=== PATIENT | female | born 1955 | race Caucasian/White ===

== ENCOUNTER → 2017-09-25 09:19 | Outpatient (CLI) | payer BC, SELFPAY ==
--- NOTE | 2017-09-25 09:26 | MM_ITS ---
MM Dig screening mamm BI w/CAD CAD Screening COMPARISON: Digital mammograms 08/08/2016 and 03/22/2014 INDICATION: There is no personal or family history of breast cancer TECHNIQUE: Standard CC and MLO images were obtained. R2 CAD reviewed. FINDINGS: Scattered fibroglandular densities are seen throughout both breasts. There is faint arterial calcination in each breast. There are few benign-appearing calcifications left breast as noted previously. Is no suspicious lesion and no suspicious microcalcifications. Again noted is a mole marker right breast. IMPRESSION: Stable exam no suspicious lesion seen recommend yearly follow-up BI-RADS Category: 2 Benign Finding(s) RECOMMENDED FOLLOW-UP: 1YR - 1 YEAR FOLLOW-UP (A letter has been sent to the patient regarding results of the study.)
== END ==
PROVIDERS: Family Provider Nurse Practitioner Family; PCP Internal Medicine Adolescent Medicine; Visit Provider Advanced Practice Midwife
DX: R10.2 Pelvic and perineal pain (principal)
CPT/HCPCS: 77067

== ENCOUNTER → 2017-10-14 11:40 | Outpatient (POV) | payer BC, SELFPAY ==
[2017-10-14 11:53] VITALS: BP 138/80; PULSE 78; RESP 18; O2SAT 98
--- NOTE | 2017-10-14 12:16 | HMH.PMCON ---
Assessment and Plan (1) Sacroiliitis Current visit: Yes Status: Chronic Category: Medical Code(s): M46.1 - Sacroiliitis, not elsewhere classified (2) Bursitis Current visit: Yes Status: Chronic Category: Medical Code(s): M71.9 - Bursopathy, unspecified - Assessment and plan all Dx Assessment and Plan for all problems:: We will plan to SI joint injection along with a left trochanteric bursa injection. I believe that this will be beneficial for the patient. In regards to her spinal stenosis if she is still having symptomology after this injection we will order a lumbar MRI to assess. Patient has tried and failed anti-inflammatories, stretching therapy, medications. Patient is not on any anticoagulation therapy I will follow-up with her after her injection. This note was dictated using voice recognition software and may contain errors or omissions HPI - Data of Consult Consult date: 10/14/17 Requesting Physician: Hanane Cohen APRN Primary Care Provider: Stanislav Mitchell MD Family Provider: Malena Ramey APRN - Consult Narrative Reason for consult: Left hip pain History of present illness: Ms. Erwin is a 62 year old female sent for consultation in regards to her left hip pain. Patient states that sleeping and walking increases her pain while meloxicam has decreased her pain some. She rates her pain a 2 out of 10 at this time. Patient states that walking makes it worse. Patient has been seen by Dr. Asif in the past and was told that she has spinal stenosis. Patient has had injections in the past with extremely good relief. Patient has tried anti-inflammatories. Patient routinely does stretching exercises at home. These do help some however she has not gotten full relief with it. CC: Hanane Cohen APRN [facility] History I have reviewed the patient's past medical history: Yes Medical History: Reports:: Depression Denies:: Diabetes Mellitus Type 1, Diabetes Mellitus Type 2 Other Medical History: Reports: Arthritis, Thyroid Disease Laterality Cases: Bilateral: Other Other Surgeries: Yes: Cholecystectomy, Colonoscopy - *Social History Smoking Status: Unknown if ever smoked Alcohol Intake: never Occupational Status: other Housing: house - Psychiatric History Expresses thoughts of harming self/others: None Suicide Plan Description: No Plan Pschychiatric History:: Reports:: Depression *Family Hx:: Hypertension, Thyroid Disorder, Diabetes, Hyperlipidemia, Heart Attack, Kidney Disease, Stroke Review of Systems - Review of Systems ROS General: no recent weight change, no fever, no sleep disturbances Respiratory: no cough, no shortness of air, no recurring pulmonary infections Cardiovascular/Peripheral Vascular: No chest pain, No palpitations, no edema, no shortness of breath. Gastrointestinal: no incontinence, normal bowel movements reported Genitourinary: no incontinence Musculoskeletal: Hip pain, left SI joint pain Psychiatric: normal mood/ affect, [denies depression], [denies anxiety] Neurological: [denies weakness in extremities], [denies balance issues] Meds Home Medications Medication Instructions Recorded Confirmed Type levothyroxine 88 mcg tablet 88 mcg PO DAILY tab 09/23/17 History melatonin 5 mg capsule 5 mg PO .prn cap 09/23/17 History meloxicam 15 mg tablet 15 mg PO DAILY tab 09/23/17 History Allergies Allergy/AdvReac Type Severity Reaction Status Date / Time No Known Allergies Allergy Unverified 05/20/17 14:27 Objective Vital signs: Pulse Resp BP Pulse Ox 78 18 138/80 98 10/14/17 11:53 10/14/17 11:53 10/14/17 11:53 10/14/17 11:53 Narrative: Physical Exam General: Alert and oriented x3, no acute distress, pleasant and cooperative, [on room air] Lungs: Resps E/U, Symmetrical chest expansion, Eyes: PERRL Musculoskeletal: Flexion and extension of lumbar spine somewhat guarded secondary to pain, keya
--- NOTE | 2017-10-14 12:19 | P.CONS_ITS ---
Assessment and Plan (1) Sacroiliitis Current visit: Yes Status: Chronic Category: Medical Code(s): M46.1 - Sacroiliitis, not elsewhere classified (2) Bursitis Current visit: Yes Status: Chronic Category: Medical Code(s): M71.9 - Bursopathy, unspecified - Assessment and plan all Dx Assessment and Plan for all problems:: We will plan to SI joint injection along with a left trochanteric bursa injection. I believe that this will be beneficial for the patient. In regards to her spinal stenosis if she is still having symptomology after this injection we will order a lumbar MRI to assess. Patient has tried and failed anti- inflammatories, stretching therapy, medications. Patient is not on any anticoagulation therapy I will follow-up with her after her injection. This note was dictated using voice recognition software and may contain errors or omissions HPI - Data of Consult Consult date: 10/14/17 Requesting Physician: Hanane Cohen APRN Primary Care Provider: Stanislav Mitchell MD Family Provider: Malena Ramey APRN - Consult Narrative Reason for consult: Left hip pain History of present illness: Ms. Erwin is a 62 year old female sent for consultation in regards to her left hip pain. Patient states that sleeping and walking increases her pain while meloxicam has decreased her pain some. She rates her pain a 2 out of 10 at this time. Patient states that walking makes it worse. Patient has been seen by Dr. Asif in the past and was told that she has spinal stenosis. Patient has had injections in the past with extremely good relief. Patient has tried anti-inflammatories. Patient routinely does stretching exercises at home. These do help some however she has not gotten full relief with it. CC: Hanane Cohen APRN [facility] [place] History I have reviewed the patient's past medical history: Yes Medical History: Reports:: Depression Denies:: Diabetes Mellitus Type 1, Diabetes Mellitus Type 2 Other Medical History: Reports: Arthritis, Thyroid Disease Laterality Cases: Bilateral: Other Other Surgeries: Yes: Cholecystectomy, Colonoscopy - *Social History Smoking Status: Unknown if ever smoked Alcohol Intake: never Occupational Status: other Housing: house - Psychiatric History Expresses thoughts of harming self/others: None Suicide Plan Description: No Plan Pschychiatric History:: Reports:: Depression *Family Hx:: Hypertension, Thyroid Disorder, Diabetes, Hyperlipidemia, Heart Attack, Kidney Disease, Stroke Review of Systems - Review of Systems ROS General: no recent weight change, no fever, no sleep disturbances Respiratory: no cough, no shortness of air, no recurring pulmonary infections Cardiovascular/Peripheral Vascular: No chest pain, No palpitations, no edema, no shortness of breath. Gastrointestinal: no incontinence, normal bowel movements reported Genitourinary: no incontinence Musculoskeletal: Hip pain, left SI joint pain Psychiatric: normal mood/ affect, [denies depression], [denies anxiety] Neurological: [denies weakness in extremities], [denies balance issues] Meds Home Medications Medication Instructions Recorded Confirmed Type levothyroxine 88 mcg tablet 88 mcg PO DAILY tab 09/23/17 History melatonin 5 mg capsule 5 mg PO .prn cap 09/23/17 History meloxicam 15 mg tablet 15 mg PO DAILY tab 09/23/17 History Allergies Allergy/AdvReac Type Severity Reaction Status Date / Time No Known A
== END ==
PROVIDERS: Family Provider Nurse Practitioner Family; PCP Internal Medicine Adolescent Medicine; Visit Provider Clinical Nurse Specialist Family Health
DX: M46.1 Sacroiliitis, not elsewhere classified (principal); M71.9 Bursopathy, unspecified
CPT/HCPCS: 99202

== ENCOUNTER → 2017-12-08 11:39 | Outpatient (POV) | payer BC, SELFPAY ==
--- NOTE | 2017-12-08 11:55 | HMH.PAINSOAP ---
[facility] Pain Management SOAP Note Subjective:: Patient is a pleasant 62-year-old white female who we are treating for left-sided hip pain. Patient is following up after left SI and left trochanteric bursa injection. Patient did not get any relief from this injection. Patient and I had a long discussion in regards to her pain. Patient is having low back pain midline along with her left hip pain. Patient has not seen an orthopedic surgeon in regards to her left hip pain I believe that this would be the next step for her. Patient has a appointment with O in December for an evaluation. Patient and I discussed the next step in regards to her back pain. We will get an MRI and some updated imaging. Patient is having some difficulty with movement of her left foot. I believe an MRI would be beneficial in discerning pathology. Patient has been diagnosed with spinal stenosis in the past. ROS General: no recent weight change, no fever, no sleep disturbances Respiratory: no cough, no shortness of air, no recurring pulmonary infections Cardiovascular/Peripheral Vascular: No chest pain, No palpitations, no edema, no shortness of breath. Gastrointestinal: no incontinence, normal bowel movements reported Genitourinary: no incontinence Musculoskeletal: Back pain, left leg pain, left hip pain Psychiatric: normal mood/ affect Neurological: [denies weakness in extremities], [denies balance issues] Objective:: Physical Exam General: Alert and oriented x3, no acute distress, pleasant and cooperative, [on room air] Lungs: Resps E/U, Symmetrical chest expansion, Eyes: PERRL Musculoskeletal: Flexion and extension of lumbar spine somewhat guarded secondary to pain, deep tendon reflexes normal, strength in upper and lower extremities [5/5], [abnormal gait noted] Neurological: speech clear, manager quality systems equal, no gross sensory deficits Assessment:: Sacroiliitis, trochanteric bursitis, left hip pain, low back pain Plan:: We will schedule an MRI to determine pathology in regards to her low back pain. Patient is to see an orthopedic surgeon in regards to her left hip pain. We will follow-up from there. Patient is on anti-inflammatories. This note was dictated using voice recognition software and may contain errors or omissions
--- NOTE | 2017-12-08 11:58 | P.CONS_ITS ---
[facility] Pain Management SOAP Note Subjective:: Patient is a pleasant 62-year-old white female who we are treating for left- sided hip pain. Patient is following up after left SI and left trochanteric bursa injection. Patient did not get any relief from this injection. Patient and I had a long discussion in regards to her pain. Patient is having low back pain midline along with her left hip pain. Patient has not seen an orthopedic surgeon in regards to her left hip pain I believe that this would be the next step for her. Patient has a appointment with O in December for an evaluation. Patient and I discussed the next step in regards to her back pain. We will get an MRI and some updated imaging. Patient is having some difficulty with movement of her left foot. I believe an MRI would be beneficial in discerning pathology. Patient has been diagnosed with spinal stenosis in the past. ROS General: no recent weight change, no fever, no sleep disturbances Respiratory: no cough, no shortness of air, no recurring pulmonary infections Cardiovascular/Peripheral Vascular: No chest pain, No palpitations, no edema, no shortness of breath. Gastrointestinal: no incontinence, normal bowel movements reported Genitourinary: no incontinence Musculoskeletal: Back pain, left leg pain, left hip pain Psychiatric: normal mood/ affect Neurological: [denies weakness in extremities], [denies balance issues] Objective:: Physical Exam General: Alert and oriented x3, no acute distress, pleasant and cooperative, [ on room air] Lungs: Resps E/U, Symmetrical chest expansion, Eyes: PERRL Musculoskeletal: Flexion and extension of lumbar spine somewhat guarded secondary to pain, deep tendon reflexes normal, strength in upper and lower extremities [5/5], [abnormal gait noted] Neurological: speech clear, financial services intern equal, no gross sensory deficits Assessment:: Sacroiliitis, trochanteric bursitis, left hip pain, low back pain Plan:: We will schedule an MRI to determine pathology in regards to her low back pain. Patient is to see an orthopedic surgeon in regards to her left hip pain. We will follow-up from there. Patient is on anti-inflammatories. This note was dictated using voice recognition software and may contain errors or omissions
== END ==
PROVIDERS: Family Provider Nurse Practitioner Family; PCP Internal Medicine Adolescent Medicine; Visit Provider Clinical Nurse Specialist Family Health
DX: M46.1 Sacroiliitis, not elsewhere classified (principal); M25.552 Pain in left hip
CPT/HCPCS: 99212

== ENCOUNTER 2019-07-06 10:30 | Outpatient (RCR) | payer BC, SELFPAY | END 2019-07-06 10:35 | disposition home or self-care (01) | LOC: PT 10:30 | PROVIDERS: PCP Internal Medicine Adolescent Medicine; Visit Provider Internal Medicine Adolescent Medicine | DX: M54.5 Low back pain (principal); M25.552 Pain in left hip; M53.3 Sacrococcygeal disorders, not elsewhere classified | CPT/HCPCS: 20560; 97010; 97012; 97014; 97033; 97035; 97110; 97140; 97163; G0283 ==

== ENCOUNTER → 2019-07-19 14:53 | Outpatient (CLI) | payer BC, SELFPAY ==
--- NOTE | 2019-07-19 15:07 | MR_ITS ---
PROCEDURE: MR LUMBAR SPINE WO CON CLINICAL INDICATION: LUMBAR DDD COMPARISON: No exams were available for comparison TECHNIQUE: Standard multiplanar multiecho sequences are performed without contrast. 3-D MIP and myelographic images are also rendered and reviewed FINDINGS: Routine multiplanar multisequence exam was performed. Vertebrae are of normal height and alignment. No malignant bone marrow signal is apparent. Discogenic endplate disease is noted throughout the lumbar spine. Varying degrees of desiccation and loss of lumbar disc space heights are noted. Additionally there is desiccation and loss of disc space height at T10-11. At T10-11 there is broad-based disc bulge with convex extradural mass effect on the thecal sac with central spinal canal stenosis and bilateral foraminal stenosis. Spinal cord contour deformity appears to be present in association. At L1-2 there is disc osteophyte complex and mild bilateral ligamentum flavum and facet hypertrophy with mild bilateral foraminal encroachment without high-grade stenosis. There is no central canal stenosis. At L2-3 there is disc bulge eccentric toward the left lateral and foraminal margin of the disc space and there is bilateral ligamentum flavum and facet hypertrophy with asymmetrical left foraminal stenosis. At L3-4 there is disc bulge with ligamentum flavum and facet hypertrophy with left foraminal stenosis without central canal stenosis. At L4-5 there is marginal osteophyte with broad-based disc bulge with bilateral ligamentum flavum and facet hypertrophy. There is bilateral foraminal stenosis greatest on the right. The facet hypertrophy appears to cause extrinsic mass effect on the right lateral aspect of the thecal sac. No high-grade central canal stenosis is apparent. At L5-S1 there is moderate to severe bilateral hypertrophic facet disease with mild bilateral foraminal stenoses. No central canal stenosis is apparent. No herniated disc is demonstrated. A 2.3 centimeter cystic lesion appears present posterior medial liver. A nonspecific 1.5 x 2.2 centimeter retrocaval lymph node appears to be present. Consider correlation with postcontrast CT of the abdomen to further assess this patient. IMPRESSION: Multilevel degenerative disc and facet disease with multilevel central canal and foraminal stenoses. Possible retrocaval lymphadenopathy. Dictated by: Paco Bosch 07/19/2019 16:48 Electronically signed by Paco Bosch in [place] 07/19/2019 16:48
== END ==
PROVIDERS: PCP Internal Medicine Adolescent Medicine; Visit Provider Internal Medicine Adolescent Medicine
DX: M51.36 Other intervertebral disc degeneration, lumbar region (principal)
CPT/HCPCS: 72148; 76376

== ENCOUNTER → 2019-10-29 10:02 | Outpatient (CLI) | payer BC, SELFPAY ==
--- NOTE | 2019-10-29 10:06 | XR_ITS ---
PROCEDURE: XR HIP LT 2-3V W/PELVIS CLINICAL INDICATION: Lt hip pain COMPARISON: [id number] HIP LT 2-3V W/PELVIS IF PERFOR from 09/19/2015 FINDINGS: There has been interval development of severe osteoarthritic changes of the left hip with loss of joint space, osteosclerosis of the acetabulum and femoral head, and subchondral cystic changes. There is loss of the hip joint space superiorly. There is suggestion of some flattening of the femoral head. There are some osteophytes noted of the femoral head. The right hip has an unremarkable appearance on the AP view of the pelvis. IMPRESSION: Severe osteoarthritic changes of the left hip with osteosclerosis and subchondral cystic changes.. This may represent rapidly destructive osteoarthritis of the hip. Differential diagnosis would include septic joint/osteomyelitis, neuropathic arthropathy, and avascular necrosis. Dictated by: Justin Martinez MD 10/29/2019 10:41 Electronically signed by Justin Martinez MD in [facility] 10/29/2019 10:41
== END ==
PROVIDERS: PCP Internal Medicine Adolescent Medicine; Visit Provider Orthopaedic Surgery
DX: M25.552 Pain in left hip (principal)
CPT/HCPCS: 73502

== ENCOUNTER → 2019-11-04 07:24 | Outpatient (CLI) | payer BC, SELFPAY ==
[2019-11-04 07:46] LABS: Microscopic, Urine URINE MICROSCOPIC (MICROSCOPIC)
--- NOTE | 2019-11-04 08:07 | ECG_ITS ---
APPROVED REPORT Exam: Resting ECG HR:67 bpm ECG Measurements Heart Rate 67 AXES CA 136 P 33 QRSd 80 QRS 61 QT 406 T 68 QTc 429 <Conclusion> Normal sinus rhythm Normal ECG Electronically signed by : Stanislav Mitchell, 11/06/2019 14:17:37
--- NOTE | 2019-11-04 08:12 | XR_ITS ---
PROCEDURE: XR CHEST 2V CLINICAL HISTORY: SOB Shortness of breath COMPARISON: No exams were available for comparison FINDINGS: The cardiomediastinal silhouette and pulmonary vascularity are within normal limits. The lungs are clear without infiltrates, suspicious nodules, or pleural effusions. Mild degenerative changes thoracic spine IMPRESSION: No acute findings. Dictated by: Justin Martinez MD 11/04/2019 08:59 Electronically signed by Justin Martinez MD in [place] 11/04/2019 08:59
[2019-11-04 08:26] LABS: Appearance,Urine CLEAR (Clear); Bilirubin,Urine Negative (Negative); Blood, Urine 1+ (Negative); Color,Urine YELLOW (Yellow); Glucose,Urine (UA) Negative (Negative); Ketones,Urine Negative (Negative); Leukocyte Esterase,Urine Negative (Negative); Nitrate,Urine Negative (Negative); PH,Urine 5.5 (5.0-8.5); Protein,Urine Negative (Negative); Specific Gravity, Urine 1.025 (1.005-1.030); Urobilinogen,Urine 0.2 EU/dl (0.2)
[2019-11-04 08:45] LABS: Basophils % 1.2 % (0.1-2.0); Eosinophils # 0.1 K/mm3 (0.0-0.4); Eosinophils % 3.5 % (0.1-12.0); Hemoglobin 13.7 g/dL (12.2-16.2); Lymphocytes # 1.2 K/mm3 (0.7-4.5); Lymphocytes % 37.6 % (10-50); Mean Corpuscular HGB Conc 33.4 g/dL (31.8-35.4); Mean Corpuscular Hemoglobin 30.6 pg (27.0-31.2); Mean Corpuscular Volume 91.7 fl (81-99); Mean Platelet Volume 7.5 fl (7.4-10.4); Monocytes # 0.2 K/mm3 (0.1-1.0); Neutrophils # 1.6 K/mm3 (1.8-7.8); Neutrophils % 50.7 % (37.0-80.0); Platelet Count 244 K/mm3 (142-424); Red Blood Count 4.47 M/mm3 (4.20-5.40); Red Cell Distribution Width 13.5 % (11.5-17.5); White Blood Count 3.2 K/mm3 (4.8-10.8)
[2019-11-04 09:18] LABS: WBC,Urine Occasional #/hpf (0-3)
[2019-11-04 09:48] LABS: INR 0.98 (0.9-1.1); Prothrombin Time 10.1 seconds (9.4-11.8)
[2019-11-04 09:49] LABS: Activated Partial Thrombo Time 25.6 seconds (23.6-34.0)
[2019-11-04 10:21] LABS: Hemoglobin A1C 5.2 % (4.0-6.0)
[2019-11-04 10:33] LABS: Chloride 104 mmol/L (98-107); Potassium 4.5 mmoL/L (3.5-5.1); Sodium 139 mmol/L (136-145)
[2019-11-04 10:36] LABS: Alanine Aminotransferase 13 U/L (12-78); Albumin Level 4.4 g/dl (3.5-5.0); Albumin/Globulin Ratio 1.4 (1.1-1.8); Alkaline Phosphatase 78 U/L (38-126); Anion Gap 10.5 mEq/L (5-15); Aspartate Amino Transferase 23 U/L (14-36); Bilirubin,Total 0.7 mg/dl (0.2-1.3); Blood Urea Nitrogen 27 mg/dl (7-17); Carbon Dioxide 29 mmol/L (22.0-30.0); Estimated Glomerular Filt Rate 56 ml/min (>60); GFR (African American) 68 ML/MIN (>60); Globulin 3.1 g/dL (1.3-3.2); Total Protein,Serum 7.5 g/dl (6.3-8.2)
[2019-11-04 10:37] LABS: Calcium 9.4 mg/dl (8.4-10.2); Glucose 87 mg/dl (74-100)
== END ==
PROVIDERS: PCP Internal Medicine Adolescent Medicine; Visit Provider Internal Medicine Adolescent Medicine
DX: Z01.818 Encounter for other preprocedural examination (principal)
CPT/HCPCS: 36415; 71046; 80053; 81001; 83036; 85025; 85610; 85730; 93005

== ENCOUNTER → 2020-04-26 08:43 | Outpatient (CLI) | payer MEDICARE, SELFPAY ==
--- NOTE | 2020-04-26 08:51 | MM_ITS ---
PROCEDURE: MM DIG SCREENING MAMM BI W/CAD Referring Doctor: Malena Ramey Patient Age:65Y CLINICAL INDICATION: SCREENING a 65-year-old female. No hormones but no new complaints. Noncontributory family history COMPARISON: MG [facility] DIGITAL MAMM-SCREEN BILATERAL from 12/25/2011 MG [facility] DIG MAMM-SCREEN NICOLE from 12/29/2012 MG DMSB DIG MAMM-SCREEN NICOLE from 03/22/2014 MG DMSB DIG MAMM-SCREEN NICOLE W/CAD from 08/08/2016 MG [facility] MM Dig screening mamm BI w/CAD from 09/25/2017 TECHNIQUE: Standard CC and MLO images were obtained. R2 CAD reviewed. Bilateral digital breast tomosynthesis included. FINDINGS: Minimal/[id number] residual fibroglandular elements bilaterally but No new dominant or suspicious mass. No suspicious calcifications. The. Left breast no new areas of concern. Minor asymmetric focus density superior left breast of is been seen on previous mammogram studies from 2012 and dissipates on the tomosynthesis views. CC view unchanged Right breast: No new areas of significant concern. Areas of minor asymmetry unchanged and stable IMPRESSION: Stable bilateral mammogram with no new areas of concern Bilateral follow-up 1 year BI-RAD Category: 2 Benign Finding(s) FOLLOW-UP: 1YR 1 Year Follow-up (A letter has been sent to the patient regarding results of the study.) Dictated by: Jonathan Drummond MD 05/04/2020 15:43 Jonathan Drummond MD in [facility] 05/04/2020 15:43
--- NOTE | 2020-04-26 08:51 | XR_ITS ---
PROCEDURE: XR DEXA AXIAL SKELETON CLINICAL HISTORY: POST MENOPAUSAL COMPARISON: No exams were available for comparison FINDINGS: The right hip BMD is 0.654 with a T-score of -1.8. The left hip BMD is with a T-score of . The lumbar spine BMD is 1.29 with a T-score of 2.3. Radius 1/3 is 0.680 grams/centimeters sq with T-score of -0.2. IMPRESSION: This patient is considered osteopenic according to the World Health Organization criteria. Bone density is between 10 and 25 percent below young normal. Fracture risk is moderate. Treatment is advised. Based on these results a follow-up exam is recommended in 2 year. Dictated by: Justin Martinez MD 04/27/2020 18:34 Justin Martinez MD in [facility] 04/27/2020 18:34
== END ==
PROVIDERS: PCP Internal Medicine Adolescent Medicine; Visit Provider Nurse Practitioner Family
DX: Z12.31 Encounter for screening mammogram for malignant neoplasm of breast (principal); Z13.820 Encounter for screening for osteoporosis; Z78.0 Asymptomatic menopausal state
CPT/HCPCS: 77063; 77067; 77080

== ENCOUNTER → 2020-09-22 09:54 | Outpatient (CLI) | payer MEDICARE, SELFPAY ==
--- NOTE | 2020-09-22 09:58 | XR_ITS ---
PROCEDURE: XR SHOULDER LT MIN 2V CLINICAL INDICATION: LT shoulder Pain COMPARISON: No exams were available for comparison FINDINGS: No fracture or dislocation. No lytic or blastic change. There is normal mineralization. There are moderate osteoarthritic changes the glenohumeral joint with decrease in joint space and spurring along the inferior aspect of the humeral head. There are mild osteoarthritic changes at the acromioclavicular joint without significant subacromial stenosis. Other findings:None. IMPRESSION: Osteoarthritic changes Dictated by: Justin Martinez MD 09/22/2020 16:39 Justin Martinez MD in [facility] 09/22/2020 16:39
== END ==
PROVIDERS: PCP Internal Medicine Adolescent Medicine; Visit Provider Orthopaedic Surgery
DX: M25.512 Pain in left shoulder (principal)
CPT/HCPCS: 73030

== ENCOUNTER 2020-09-24 11:21 | Emergency (ER) | payer MEDICARE, SELFPAY ==
[2020-09-24] VITALS (8 sets, daily range): BP systolic 100–143; BP diastolic 63–87; PULSE 68–75; RESP 16–18; TEMP 36.4–36.6; O2SAT 97–100; BMI 34.0
--- NOTE | 2020-09-24 11:36 | HMH.EDGENADL ---
ED Disposition Clinical Impression: Pain of left calf Disposition: Home, Self-Care Condition on Discharge: Good Additional Instructions: Tylenol or ibuprofen for pain, rest and elevate extremity. Follow-up with primary care provider if not proving in 2 to 3 days. Referrals: PCP,No [Non-Staff] - - Critical Care Critical Care Time: No Attestation: On , the high probability of a clinically significant, sudden or life threatening deterioration of the following system(s) required my full and direct attention, intervention and personal management. The time I documented below is in addition to time spent performing reported procedures but includes the following listed in this critical care notation. Medical Decision Making - Fran Inquiry Pt receiving controlled substance: No Vital Signs: 09/24/20 11:24 09/24/20 12:00 09/24/20 12:30 Temperature 97.6 F Temperature Source Oral Pulse Rate 75 72 Pulse Rate [Left Radial] 69 Respiratory Rate 16 18 18 Blood Pressure 116/70 116/69 Blood Pressure [Left Arm] 143/87 H Blood Pressure Mean 88 82 Blood Pressure Mean [Left Arm] 105 Blood Pressure Source [Left Arm] Automatic Cuff Blood Pressure Position [Left Arm] Sitting 02 Sat by Pulse Oximetry 100 100 99 Oxygen Delivery Method Room Air 09/24/20 13:00 09/24/20 13:30 09/24/20 14:00 Temperature Temperature Source Pulse Rate 68 70 68 Pulse Rate [Left Radial] Respiratory Rate 18 18 18 Blood Pressure 124/70 117/63 100/67 L Blood Pressure [Left Arm] Blood Pressure Mean 88 86 78 Blood Pressure Mean [Left Arm] Blood Pressure Source [Left Arm] Blood Pressure Position [Left Arm] 02 Sat by Pulse Oximetry 99 100 98 Oxygen Delivery Method 09/24/20 14:30 Temperature Temperature Source Pulse Rate 72 Pulse Rate [Left Radial] Respiratory Rate 18 Blood Pressure 116/68 Blood Pressure [Left Arm] Blood Pressure Mean 84 Blood Pressure Mean [Left Arm] Blood Pressure Source [Left Arm] Blood Pressure Position [Left Arm] 02 Sat by Pulse Oximetry 99 Oxygen Delivery Method - Lab Data Lab Results 09/24/20 11:45: WBC 4.1 L, RBC 4.81, Hgb 13.9, Hct 43.4, MCV 90.2, MCH 28.9, MCHC 32.0, RDW 13.8, Plt Count 243, MPV 7.9, Neut % (Auto) 51.1, Lymph % (Auto) 37.8, Garland % (Auto) 6.4, Eos % (Auto) 3.6, Baso % (Auto) 1.1, Neut # (Auto) 2.1, Lymph # (Auto) 1.6, Garland # (Auto) 0.3, Eos # (Auto) 0.2, Baso # (Auto) 0.1 09/24/20 11:45: D-Dimer 0.81 H 09/24/20 11:45: Sodium 141, Potassium 4.3, Chloride 105, Carbon Dioxide 26, Anion Gap 14.3, BUN 23 H, Creatinine 0.80, Estimated Creat Clear 72, Estimated GFR 72, Est GFR ( Amer) 87, Glucose 97, Calcium 9.4 Result diagrams: 09/24/20 11:45 09/24/20 11:45 - US Data US Images: Lower Extremity Findings Narrative: As per [facility] procedure, doppler report received from mechanical design technician: Negative General Adult HPI - General Stated complaint: left leg in hurting Time Seen by Provider: 09/24/20 11:37 - History of Present Illness HPI narrative: Left calf pain for 2 days. No swelling. No shortness of breath. No injury. No prior history of blood clots. No recent surgery, hospitalizations, or travel. No hormone therapy. She is concerned because she got the [employer] Covid vaccine 17 days ago. - Related Data Home Medications Medication Instructions Recorded Confirmed levothyroxine 88 mcg tablet 88 mcg PO DAILY tab 09/23/17 10/29/19 melatonin 5 mg capsule 5 mg PO .prn cap 09/23/17 10/29/19 meloxicam 15 mg tablet 15 mg PO DAILY tab 09/23/17 10/29/19 Hydrocodone/Acetaminophen 1 each PO Q4HP PRN 11/14/17 10/29/19 [Hydrocodone-Acetamin 5-325 mg] levoFLOXacin [Levaquin 500mg 500 mg PO DAILY 11/14/17 10/29/19 tab] Allergies Allergy/AdvReac Type Severity Reaction Status Date / Time No Known Allergies Allergy Verified 10/29/19 15:53 [facility] History - Hepatitis A Screen Attestation statement:: Thi
[2020-09-24 11:57] LABS: Basophils # 0.1 K/mm3 (0-0.2); Basophils % 1.1 % (0.1-2.0); Eosinophils # 0.2 K/mm3 (0.0-0.4); Eosinophils % 3.6 % (0.1-12.0); Hematocrit 43.4 % (37.0-47.0); Hemoglobin 13.9 g/dL (12.2-16.2); Lymphocytes # 1.6 K/mm3 (0.7-4.5); Lymphocytes % 37.8 % (10-50); Mean Corpuscular Hemoglobin 28.9 pg (27.0-31.2); Mean Corpuscular Volume 90.2 fl (81-99); Mean Platelet Volume 7.9 fl (7.4-10.4); Monocytes # 0.3 K/mm3 (0.1-1.0); Monocytes % 6.4 % (1.7-9.3); Neutrophils # 2.1 K/mm3 (1.8-7.8); Neutrophils % 51.1 % (37.0-80.0); Platelet Count 243 K/mm3 (142-424); Red Blood Count 4.81 M/mm3 (4.20-5.40); Red Cell Distribution Width 13.8 % (11.5-17.5); White Blood Count 4.1 K/mm3 (4.8-10.8)
[2020-09-24 12:01] LABS: Anion Gap 14.3 mEq/L (5-15); Blood Urea Nitrogen 23 mg/dl (7-17); Calcium 9.4 mg/dl (8.4-10.2); Carbon Dioxide 26 mmol/L (22.0-30.0); Chloride 105 mmol/L (98-107); Creatinine Clearance Estimated 72 mL/min (50-200); Estimated Glomerular Filt Rate 72 ml/min (>60); GFR (African American) 87 ML/MIN (>60); Glucose 97 mg/dl (74-100); Potassium 4.3 mmoL/L (3.5-5.1); Sodium 141 mmol/L (136-145)
[2020-09-24 12:06] LABS: D-Dimer 0.81 ug/mL (0.0-0.5)
--- NOTE | 2020-09-24 12:30 | PC.NURSE ---
Addendum entered by Angella Kaba RN 09/24/20 14:28: Pt is aware of WAIT time Original Note: CV lab pipeline construction inspector staff states they will be here at approx 3pm for doppler study. Pt is aware of weight time.
--- NOTE | 2020-09-24 12:33 | CA_ITS ---
APPROVED REPORT Left Lower Extremity Venous Study for DVT. Alley Tender: CT Indications Lower Extremity Pain: left calf pain, elev d-dimer, r/o dvt, pt had [employer] covid vaccine 17 days ago. Vein Imaging CFV (L): compressive, spontaneous, phasic, augmentation SFJ (L): compressive, spontaneous, phasic, augmentation FEM (L): compressive, spontaneous, phasic, augmentation POP (L): compressive, spontaneous, phasic, augmentation DFV (L): compressive, spontaneous, phasic, augmentation PTV (L): compressive, spontaneous, phasic, augmentation GSV (L): compressive, spontaneous, phasic, augmentation Peroneals (L):compressive, spontaneous, phasic, augmentation GAS (L): compressive, spontaneous, phasic, augmentation Findings LLE negative for DVT/SVT. Vessels compressible. Electronically signed by : Justin Martinez MD 09/25/2020 16:47:26
--- NOTE | 2020-09-24 12:45 | PC.NURSE ---
pt eating lunch tray at this time
--- NOTE | 2020-09-24 15:09 | PC.NURSE ---
Vascular here to do doppler study
== END 2020-09-24 15:45 | disposition home or self-care (01) ==
PROVIDERS: Emergency Provider Emergency Medicine; PCP Internal Medicine Adolescent Medicine
DX: M79.662 Pain in left lower leg (principal)
CPT/HCPCS: 80048; 85025; 85378; 93971; 99282

== ENCOUNTER → 2020-10-16 09:15 | Outpatient (CLI) | payer MEDICARE, SELFPAY | PROVIDERS: PCP Internal Medicine Adolescent Medicine; Visit Provider Orthopaedic Surgery | DX: M19.012 Primary osteoarthritis, left shoulder (principal) ==

== ENCOUNTER 2020-11-17 11:00 | Outpatient (RCR) | payer MEDICARE, SELFPAY | END 2020-11-17 11:05 | disposition home or self-care (01) | LOC: OT 11:00 | PROVIDERS: PCP Internal Medicine Adolescent Medicine; Visit Provider Orthopaedic Surgery | DX: M19.012 Primary osteoarthritis, left shoulder (principal) | CPT/HCPCS: 97014; 97110; 97140; 97164; 97165; 97530; G0283 ==

== ENCOUNTER → 2020-12-18 10:43 | Outpatient (CLI) | payer MEDICARE, SELFPAY ==
--- NOTE | 2020-12-18 10:43 | MR_ITS ---
PROCEDURE: MR SHOULDER LT WO CON CLINICAL INDICATION: evaluate for rotator cuff COMPARISON: No exams were available for comparison TECHNIQUE: Routine multiplanar multi echo sequences are performed without gadolinium enhancement. FINDINGS: Supraspinatus tendinopathy is noted. There is a partial thickness bursal surface fibers tear of the mid fibers of supraspinatus. No evidence of full-thickness tear. The infraspinatus, teres minor and subscapularis are intact. No evidence of muscle edema or atrophy. The biceps tendon is intact. Small joint effusion is noted. Multiple subchondral cystic changes are needed in the bony glenoid. There is signal abnormality with irregularity of the inferior labrum with multiple subchondral cystic changes of the bony glenoid. Labral tear cannot be completely excluded on the current study. Degenerative changes of the visualized humeral head with multiple osteophytes are noted. Moderate to advanced osteo arthritis of the acromioclavicular joint. Moderate joint effusion is noted. The coracoclavicular, coracoacromial and the coracohumeral ligaments are within normal limits. IMPRESSION: Supraspinatus tendinopathy. Focal partial thickness bursal surface fibers tear. Moderate joint effusion. Degenerative changes of the left shoulder joint with subchondral cystic changes and osteophyte formation. Dictated by: Nola Polo 12/18/2020 14:10 Nola Polo in OV 12/18/2020 14:10
== END ==
PROVIDERS: PCP Internal Medicine Adolescent Medicine; Visit Provider Orthopaedic Surgery
DX: G89.29 Other chronic pain (principal); M25.512 Pain in left shoulder
CPT/HCPCS: 73221

== ENCOUNTER 2021-02-07 13:49 | Outpatient (CLI) | payer MEDICARE, SELFPAY ==
[2021-02-07] VITALS (7 sets, daily range): BP systolic 101–115; BP diastolic 66–77; PULSE 63–79; RESP 18; TEMP 36.7–36.8; O2SAT 93–98
== END 2021-02-07 16:15 | disposition home or self-care (01) ==
LOC: INF 13:50
PROVIDERS: PCP Internal Medicine Adolescent Medicine; Visit Provider Nurse Practitioner Family
DX: U07.1 COVID-19 (principal)
CPT/HCPCS: 96365

== ENCOUNTER → 2021-04-04 17:05 | Outpatient (CLI) | payer MEDICARE, SELFPAY ==
[2021-04-04 17:52] LABS: Basophils % 0.7 % (0.1-2.0); Eosinophils # 0.1 K/mm3 (0.0-0.4); Eosinophils % 2.6 % (0.1-12.0); Hematocrit 43.5 % (37.0-47.0); Hemoglobin 13.6 g/dL (12.2-16.2); Lymphocytes # 1.8 K/mm3 (0.7-4.5); Lymphocytes % 39.6 % (10-50); Mean Corpuscular HGB Conc 31.2 g/dL (31.8-35.4); Mean Corpuscular Volume 99.4 fl (81-99); Mean Platelet Volume 9.7 fl (7.4-10.4); Monocytes # 0.4 K/mm3 (0.1-1.0); Monocytes % 8.8 % (1.7-9.3); Neutrophils # 2.1 K/mm3 (1.8-7.8); Neutrophils % 48.2 % (37.0-80.0); Platelet Count 289 K/mm3 (142-424); Red Blood Count 4.38 M/mm3 (4.20-5.40); Red Cell Distribution Width 13.9 % (11.5-17.5); White Blood Count 4.4 K/mm3 (4.8-10.8)
[2021-04-04 18:33] LABS: Alanine Aminotransferase 13 U/L (12-78); Albumin Level 4.2 g/dl (3.5-5.0); Albumin/Globulin Ratio 1.6 (1.1-1.8); Alkaline Phosphatase 68 U/L (38-126); Anion Gap 7.6 mEq/L (5-15); Aspartate Amino Transferase 23 U/L (14-36); Bilirubin,Total 0.4 mg/dl (0.2-1.3); Blood Urea Nitrogen 13 mg/dl (7-17); Calcium 9.2 mg/dl (8.4-10.2); Carbon Dioxide 32 mmol/L (22.0-30.0); Chloride 104 mmol/L (98-107); Chol/HDL Ratio 2.6 (1-3.5); Cholesterol 179 mg/dl (140-200); Estimated Glomerular Filt Rate 84 ml/min (>60); GFR (African American) 101 ML/MIN (>60); Globulin 2.7 g/dL (1.3-3.2); Glucose 86 mg/dl (74-100); HDL Cholesterol 70 mg/dl (40-60); Potassium 4.6 mmoL/L (3.5-5.1); Sodium 139 mmol/L (136-145); Total Protein,Serum 6.9 g/dl (6.3-8.2); Triglycerides 71 mg/dl (30-150); VLDL Cholesterol 14 mg/dL (0-40)
[2021-04-04 18:44] LABS: Direct LDL Cholesterol 78.12 mg/dL (100-129)
[2021-04-04 19:01] LABS: Thyroid Stimulating Hormone 1.36 uIU/mL (0.465-4.68)
== END ==
PROVIDERS: Visit Provider Nurse Practitioner Family
DX: E03.9 Hypothyroidism, unspecified (principal); M15.0 Primary generalized (osteo)arthritis; Z86.010 Personal history of colon polyps
CPT/HCPCS: 80053; 80061; 84443; 85025

== ENCOUNTER → 2022-01-03 08:45 | Outpatient (CLI) | payer MEDICARE, SELFPAY ==
--- NOTE | 2022-01-03 08:49 | MR_ITS ---
FINAL REPORT CLINICAL HISTORY: SACROILIAC INFLAMMATION lower back pain with righ thip pain x 4 months no injury / truama right left pain to knee COMPARISON: 07/19/2019 FINDINGS: MRI LUMBAR SPINE W/O CONTRAST Multiplanar MR imaging of the lumbar spine was performed without contrast. On the sagittal T2-weighted images, disc degeneration is seen throughout. The vertebral alignment is normal. There is no evidence of fracture. The conus has an unremarkable appearance. T11-12: No significant central canal stenosis or neural foraminal narrowing. L1-2: There is an annular disc bulge with facet arthropathy and vertebral osteophytes. There is mild right and moderate left neural foraminal narrowing. L2-3: There is an annular disc bulge with facet arthropathy and vertebral osteophytes. There is mild right and moderate left neural foraminal narrowing. L3-4: There is an annular disc bulge with facet arthropathy and vertebral osteophytes. There is mild right and moderate left neural foraminal narrowing. L4-5: There is an annular disc bulge with facet arthropathy and vertebral osteophytes. There is severe right and moderate left neural foraminal narrowing. L5-S1: There is an annular disc bulge with facet arthropathy. There is moderate right mild left neural foraminal narrowing. Note is made of para-aortic adenopathy measuring up to 3.3 cm and is somewhat worse than on the prior examination. IMPRESSION: Multilevel disc degeneration and spondylosis with areas of neuroforaminal narrowing which is worse on the right at L4-5. This is similar to the prior exam. Para-aortic adenopathy, somewhat worse, worrisome for neoplastic involvement such as lymphoma or metastatic disease. Reviewed, Interpreted and Dictated by Héctor Mar III, MD Transcribed by Kelsey France Authenticated and [facility]
== END ==
PROVIDERS: PCP Internal Medicine Adolescent Medicine; Visit Provider Nurse Practitioner Family
DX: M46.1 Sacroiliitis, not elsewhere classified (principal)
CPT/HCPCS: 72148; 76376

== ENCOUNTER → 2022-01-11 08:32 | Outpatient (CLI) | payer MEDICARE, SELFPAY ==
[2022-01-11 10:23] LABS: Alanine Aminotransferase 13 U/L (12-78); Albumin Level 4.1 g/dl (3.5-5.0); Albumin/Globulin Ratio 1.4 (1.1-1.8); Alkaline Phosphatase 96 U/L (38-126); Anion Gap 11.6 mEq/L (5-15); Aspartate Amino Transferase 23 U/L (14-36); Bilirubin,Total 0.3 mg/dl (0.2-1.3); Blood Urea Nitrogen 27 mg/dl (7-17); Calcium 9.3 mg/dl (8.4-10.2); Carbon Dioxide 26 mmol/L (22.0-30.0); Chloride 107 mmol/L (98-107); Estimated Glomerular Filt Rate 63 ml/min (>60); GFR (African American) 76 ML/MIN (>60); Glucose 87 mg/dl (74-100); Potassium 4.6 mmoL/L (3.5-5.1); Sodium 140 mmol/L (136-145); Total Protein,Serum 7.1 g/dl (6.3-8.2)
[2022-01-11 10:24] LABS: Basophils # 0.1 K/mm3 (0-0.2); Basophils % 1.6 % (0.1-2.0); Eosinophils # 0.1 K/mm3 (0.0-0.4); Eosinophils % 3.5 % (0.1-12.0); Hematocrit 42.8 % (37.0-47.0); Hemoglobin 13.1 g/dL (12.2-16.2); Lymphocytes # 1.2 K/mm3 (0.7-4.5); Lymphocytes % 40.6 % (10-50); Mean Corpuscular HGB Conc 30.5 g/dL (31.8-35.4); Mean Corpuscular Hemoglobin 29.7 pg (27.0-31.2); Mean Corpuscular Volume 97.3 fl (81-99); Mean Platelet Volume 8.2 fl (7.4-10.4); Monocytes # 0.3 K/mm3 (0.1-1.0); Monocytes % 9.4 % (1.7-9.3); Neutrophils # 1.4 K/mm3 (1.8-7.8); Neutrophils % 44.9 % (37.0-80.0); Platelet Count 293 K/mm3 (142-424); Red Cell Distribution Width 13.9 % (11.5-17.5)
[2022-01-11 10:54] LABS: Thyroid Stimulating Hormone 1.96 uIU/mL (0.465-4.68)
== END ==
PROVIDERS: PCP Nurse Practitioner Family; Visit Provider Nurse Practitioner Family
DX: R59.0 Localized enlarged lymph nodes (principal); E03.9 Hypothyroidism, unspecified
CPT/HCPCS: 36415; 80053; 84443; 85025

== ENCOUNTER → 2022-01-15 09:20 | Outpatient (CLI) | payer MEDICARE, SELFPAY ==
--- NOTE | 2022-01-15 09:31 | CT_ITS ---
FINAL REPORT CLINICAL HISTORY: ABDOMINAL LYMPHADENOPATHY FINDINGS: CT OF THE ABDOMEN AND PELVIS WITH CONTRAST Axial CT images of the abdomen and pelvis were obtained after the administration of IV contrast. Coronal reformatted images were also obtained and reviewed.This study was performed with techniques to keep radiation doses as low as reasonably achievable (ALARA). Individualized dose reduction techniques using automated exposure control or adjustment of mA and/or kV according to the patient's size were employed. Abdomen: The heart is normal in size. There are multiple hepatic cysts. The gallbladder surgically absent. The spleen is unremarkable. No adrenal mass is present. The pancreas has an unremarkable appearance. There are several less than 1 cm bilateral renal cysts. The aorta is normal in caliber. There are multiple enlarged retroperitoneal lymph nodes. The largest para-aortic lymph node measures 32 mm. Pelvis: The appendix is normal. The urinary bladder is unremarkable. No inflammatory process is seen. There are multiple enlarged common iliac and external iliac lymph nodes. A medial left external iliac lymph node near the level of the left hip measures 35 mm. There are several mildly enlarged inguinal lymph nodes. There is no evidence of bowel obstruction. There are postoperative changes from left hip arthroplasty. IMPRESSION: Areas of adenopathy most worrisome for a neoplastic involvement. May represent lymphoma or leukemia. Reviewed, Interpreted and Dictated by Héctor Mar III, MD Transcribed by Kelsey France Authenticated and [facility]
--- NOTE | 2022-01-15 09:31 | CT_ITS ---
FINAL REPORT CLINICAL HISTORY: abdominal lymphadenopathy FINDINGS: CT CHEST W/CONTRAST Axial CT images of the chest were obtained with contrast. Coronal reformatted images were also obtained. This study was performed with techniques to keep radiation doses as low as reasonably achievable, (ALARA). Individualized dose reduction techniques using automated exposure control or adjustment of mA and/or KV according to the patient's size were employed. There is no evidence of mediastinal or hilar mass or adenopathy. There is lower right paratracheal adenopathy measuring up to 23 mm. There are multiple enlarged bilateral axillary lymph nodes with the largest on the right measuring 15 mm in the largest on the left measuring 21 mm. On lung window images, no pulmonary mass or dominant pulmonary nodule is identified. No localized pulmonary inflammatory process is identified. There is a calcified granuloma in the superior segment of the left lower lobe. There are postoperative changes in left shoulder. IMPRESSION: Areas of adenopathy most worrisome for a neoplastic involvement. May represent lymphoma or leukemia. Reviewed, Interpreted and Dictated by Héctor Mar III, MD Transcribed by Kelsey France Authenticated and [facility]
--- NOTE | 2022-01-15 09:41 | XR_ITS ---
FINAL REPORT CLINICAL HISTORY: RIGHT HIP PAIN COMPARISON: 10/29/2019 FINDINGS: Right hip Three views were obtained. There is no acute fracture or dislocation. There are mild degenerative changes of the right hip. There is interval postoperative change of the left hip. Moderate degenerative changes are seen in the lower lumbar spine. There is residual contrast in the urinary bladder. IMPRESSION: Degenerative and postoperative change as detailed above. Reviewed, Interpreted and Dictated by Héctor Mar III, MD Transcribed by Nandini Eubanks Authenticated and [facility]
== END ==
PROVIDERS: PCP Internal Medicine Adolescent Medicine; Visit Provider Nurse Practitioner Family
DX: R59.0 Localized enlarged lymph nodes (principal); M25.551 Pain in right hip
CPT/HCPCS: 71260; 73502; 74177; Q9967

== ENCOUNTER → 2022-02-21 09:30 | Outpatient (CLI) | payer MEDICARE, SELFPAY ==
[2022-02-21 10:15] LABS: Basophils # 0.1 K/mm3 (0-0.2); Basophils % 2.3 % (0.1-2.0); Eosinophils # 0.1 K/mm3 (0.0-0.4); Eosinophils % 3.8 % (0.1-12.0); Hematocrit 43.2 % (37.0-47.0); Hemoglobin 13.4 g/dL (12.2-16.2); Lymphocytes # 1.4 K/mm3 (0.7-4.5); Lymphocytes % 42.5 % (10-50); Mean Corpuscular HGB Conc 31.1 g/dL (31.8-35.4); Mean Corpuscular Volume 96.6 fl (81-99); Mean Platelet Volume 8.2 fl (7.4-10.4); Monocytes # 0.3 K/mm3 (0.1-1.0); Monocytes % 8.9 % (1.7-9.3); Neutrophils # 1.4 K/mm3 (1.8-7.8); Neutrophils % 42.4 % (37.0-80.0); Platelet Count 235 K/mm3 (142-424); Red Blood Count 4.47 M/mm3 (4.20-5.40); Red Cell Distribution Width 13.8 % (11.5-17.5); White Blood Count 3.3 K/mm3 (4.8-10.8)
[2022-02-21 10:34] LABS: Chloride 105 mmol/L (98-107); Potassium 4.4 mmoL/L (3.5-5.1); Sodium 142 mmol/L (136-145)
[2022-02-21 10:37] LABS: Alanine Aminotransferase 15 U/L (12-78); Albumin Level 4.2 g/dl (3.5-5.0); Albumin/Globulin Ratio 1.6 (1.1-1.8); Alkaline Phosphatase 83 U/L (38-126); Anion Gap 13.4 mEq/L (5-15); Aspartate Amino Transferase 27 U/L (14-36); Bilirubin,Total 0.3 mg/dl (0.2-1.3); Blood Urea Nitrogen 23 mg/dl (7-17); Calcium 8.9 mg/dl (8.4-10.2); Carbon Dioxide 28 mmol/L (22.0-30.0); Estimated Glomerular Filt Rate 72 ml/min (>60); GFR (African American) 87 ML/MIN (>60); Globulin 2.7 g/dL (1.3-3.2); Glucose 84 mg/dl (74-100); Total Protein,Serum 6.9 g/dl (6.3-8.2)
[2022-02-21 10:56] LABS: Lactate Dehydrogenase 186 U/L (313-618)
== END ==
PROVIDERS: PCP Nurse Practitioner Family; Visit Provider Surgery
DX: R59.0 Localized enlarged lymph nodes (principal)
CPT/HCPCS: 36415; 80053; 83615; 85025

== ENCOUNTER → 2022-03-04 09:29 | Outpatient (CLI) | payer MEDICARE, SELFPAY | PROVIDERS: PCP Nurse Practitioner Family; Visit Provider Internal Medicine | DX: Z01.818 Encounter for other preprocedural examination (principal); Z20.822 Contact with and (suspected) exposure to COVID-19; Z12.11 Encounter for screening for malignant neoplasm of colon | CPT/HCPCS: C9803; U0003; U0005 ==

== ENCOUNTER 2022-03-06 08:26 | Day surgery (SDC) | payer MEDICARE, SELFPAY ==
--- NOTE | 2022-03-06 08:43 | P.PN_ITS ---
PFSH PFSH Medical History Gallbladder disease Hypothyroid Osteoarthritis Skin cancer Surgical History H/O shoulder surgery History of cholecystectomy History of left hip replacement Hx of cervical spine surgery Family History Other Family history of myocardial infarction Stroke Social History Smoking Status: Never smoker alcohol intake: never substance use type: denies use current occupational status: retired Travel in the last 8 weeks: None household members: spouse housing: house current occupational exposures/hazards: No caffeine: Yes special marlyn needs: No agree to transfusion: No do you feel safe at home: Yes victim of physical abuse: No victim of emotional abuse: No victim of sexual abuse: No would you like helpful sources: No [facility] Anesthesia Checklist Patient Identification Patient Identification: Arm Band and Verbal (Name & ) Structural Data Admitted From: Home Planned Operative Procedure/s: EGD/Colonoscopy Consent for Planned Operative Procedure(s) Verified: Yes NPO Status Verified Time NPO: 00:00 Airway Assessment C-Spine Mobility Assessed: Yes TMJ Mobility Assessed: Yes Dentition: Good Dentition Neurological Assessment Level of Consciousness: Awake Hx Seizures: No Numbness or tingling in extremities: No Anesthesia Plan Anesthesia Risk discussed: Yes Anesthesia Plan: Verified ASA Class: II Anesthesia Type: MAC
[2022-03-06 08:49] VITALS: BP 126/81; PULSE 84; RESP 18; TEMP 36.7; O2SAT 99; BMI 33.5
[2022-03-06 09:36] VITALS: O2SAT 99
--- NOTE | 2022-03-06 10:04 | HMH.SCOPE ---
Procedure: Date: 03/06/22 Patient Date of :: 1955 Procedure Performed:: EGD Indications:: The patient is a 67 year old who presents for EGD evaluation of abdominal lymphadenopathy that was seen on CT scan of abdomen and pelvis in December Provider:: Raphael Mary MD Referring Provider:: Raphael Pearson MD Sedation:: See RN notes Procedure:: The gastroscope was gently passed through the incisoral orifice into the oral cavity and under direct visualization the esophagus was intubated. The endoscope was passed down the esophagus, through the stomach, and into the duodenum. Color, texture, mucosa, and anatomy of the esophagus, stomach, and duodenum were carefully examined with the scope.. Findings:: Oropharynx: normal Esophagus: normal EG Junction: intact at 40 cm Cardia: normal Fundus: normal Body: Minimal gastritis. Linear erythema. Boipsies obtained Antrum: Minimal gastritis. Linear erythema. Biopsies obtained. Duodenal bulb: normal Duodenum (second and third portion): normal Recommendations:: Await pathology results Move forward to colonoscopy for evaluation of abdominal lymphadenopathy Complications:: None Estimated blood obtained (mL): 0
[2022-03-06 10:05] VITALS: BP 110/72; PULSE 88; RESP 14; O2SAT 97
--- NOTE | 2022-03-06 10:12 | HMH.SCOPE ---
Procedure: Date: 03/06/22 Patient Date of :: 1955 Procedure Performed:: Colonoscopy Indications:: The patient is a 67 caro old who presents for EGD evaluation of abdominal lymphadenopathy that was seen on CT scan of abdomen and pelvis in December Provider:: Raphael Mary MD Referring Provider:: Raphael Pearson MD Sedation:: See RN records Procedure:: After placing the patient in the left lateral decubitus position, the colonoscopy was gently inserted into the rectum and under direct visualization advanced to the cecum which was identified by transillumination in the right lower quadrant, identification of the ileocecal valve, appendiceal orifice, and cecal strap. Color, texture, mucosa, and anatomy of the colon were carefully examined with the scope. Findings:: Anal canal: normal Rectum: Two sessile polyps less than 5 mm in size. Removed with cold snare polypectomy Sigmoid colon: normal without polyps or inflammatory changes Descending colon: normal without polyps or inflammatory changes Splenic flexure: normal Transverse colon: normal without polyps or inflammatory changes Hepatic flexure: normal Ascending colon: normal without polyps or inflammatory changes Cecum: normal Terminal ileum: normal Recommendations:: Await pathology results Repeat colonosocpy in 5 years Complications:: none Estimated blood obtained (mL): 0
[2022-03-06 10:15] VITALS: BP 119/77; PULSE 71; RESP 16; O2SAT 100
[2022-03-06 10:25] VITALS: BP 112/69; PULSE 64; RESP 16; O2SAT 100
[2022-03-06 10:35] VITALS: BP 125/69; PULSE 68; RESP 17; O2SAT 100
== END 2022-03-06 10:59 | disposition home or self-care (01) ==
PROVIDERS: PCP Nurse Practitioner Family; Visit Provider Internal Medicine
PROC: 0DJ08ZZ Inspection of Upper Intestinal Tract, Via Natural or Artificial Opening Endoscopic (ICD-10-PCS; CPT 43235; principal; 2022-03-06 09:30)
DX: Z12.11 Encounter for screening for malignant neoplasm of colon (principal); R59.1 Generalized enlarged lymph nodes; K62.1 Rectal polyp; Z79.899 Other long term (current) drug therapy
CPT/HCPCS: 43239; 45385; 88305

== ENCOUNTER → 2022-05-08 08:15 | Outpatient (CLI) | payer MEDICARE, SELFPAY ==
--- NOTE | 2022-05-08 08:31 | MM_ITS ---
PROCEDURE INFORMATION: Exam: MG Bilateral Screening 3D Mammography Exam date and time: 05/08/2022 8:26 AM Age: 67 years old Clinical indication: Screening examination. Personal history of lymphoma. No family history of breast cancer. TECHNIQUE: Imaging protocol: Bilateral Screening tomosynthesis and 2D mammography including computer-aided detection (CAD) when performed. COMPARISON: 1. MG MM DIG SCREENING MAMM BI W/CAD 04/26/2020 8:52 AM 2. MG SCBI MM Dig screening mamm BI w/CAD 09/25/2017 9:32 AM 3. MG DMSB DIG MAMM-SCREEN NICOLE W/CAD 08/08/2016 8:53 AM 4. MG DMSB DIG MAMM-SCREEN NICOLE 03/22/2014 9:28 AM FINDINGS: MAMMOGRAPHY: Breast composition: There are scattered areas of fibroglandular density. Mass: None. Architectural distortion: None. Calcifications: No suspicious calcifications. Asymmetric density: None. Skin thickening: None. Axillary adenopathy: Enlarged abnormal appearing lymph node partly imaged in the left axilla. IMPRESSION: See comment Enlarged abnormal appearing left axillary lymph node, note history of lymphoma, sonography of the axilla can be added as clinically needed. Otherwise no mammographic evidence of malignancy, annual screening mammogram recommended unless otherwise clinically indicated. ASSESSMENT: BI-RADS Category 1: Negative
== END ==
PROVIDERS: PCP Nurse Practitioner Family; Visit Provider Nurse Practitioner Family
DX: Z12.31 Encounter for screening mammogram for malignant neoplasm of breast (principal)
CPT/HCPCS: 77063; 77067

== ENCOUNTER → 2022-12-19 13:22 | Outpatient (CLI) | payer MEDICARE, SELFPAY ==
--- NOTE | 2022-12-19 13:48 | CA_ITS ---
FINAL REPORT TECHNIQUE: Color Doppler, duplex Doppler and cooper scale sonography of the bilateral neck arterial vasculature was performed. Velocities were measured in the carotid arteries. Stenosis evaluation based on the validated velocity criteria. CLINICAL HISTORY: DIZZINESS FINDINGS: The peak systolic velocity of the right common carotid artery is 62 cm/s. The peak systolic velocity of the right internal carotid artery is 64 cm/s and end diastolic velocity 33 cm/s. The ICA/CCA ratio is 1.0. A small amount of plaque is present. The right external carotid artery is patent. The right vertebral artery is patent with antegrade flow. The peak systolic velocity of the left common carotid artery is 65 cm/s. The peak systolic velocity of the left internal carotid artery is 131 cm/s and end diastolic velocity 2.4 cm/s. The ICA/CCA ratio is 1.2. A small amount of plaque is present. The left external carotid artery is patent.The left vertebral artery is patent with antegrade flow. IMPRESSION: Less than 50% bilateral carotid stenoses. Bilateral patent vertebral arteries with antegrade flow. If indicated, CTA or MRA could further evaluate. Reviewed, Interpreted and Dictated by Lizzy Bynum MD Transcribed by Nandini Eubanks Authenticated and [facility]
--- NOTE | 2022-12-19 14:59 | MR_ITS ---
FINAL REPORT TECHNIQUE: Multiplanar and multisequence imaging of the brain was obtained without contrast. CLINICAL HISTORY: MEMORY LOSS, VISUAL DISTURBANCE. DIZZINESS COMPARISON: None FINDINGS: The gyri and sulci are within normal limits for age. There is no mass effect or midline shift. The ventricles are symmetric in size and configuration without hydrocephalus. There is minimal T2 increased signal in the periventricular white matter likely very mild ischemic microvascular/gliotic change. The cerebellum and brainstem have a normal appearance. There are no areas of restricted diffusion on diffusion weighted images to suggest acute infarct. Soft tissues are without acute abnormality. IMPRESSION: No acute intracranial abnormality. Reviewed, Interpreted and Dictated by Lizzy Bynum MD Transcribed by Darlin Hudson Authenticated and [facility]
[2022-12-19 15:00] LABS: Alanine Aminotransferase 16 U/L (12-78); Albumin Level 4.4 g/dl (3.5-5.0); Albumin/Globulin Ratio 1.5 (1.1-1.8); Alkaline Phosphatase 90 U/L (38-126); Anion Gap 10.4 mEq/L (5-15); Aspartate Amino Transferase 25 U/L (14-36); Bilirubin,Total 0.5 mg/dl (0.2-1.3); Blood Urea Nitrogen 22 mg/dl (7-17); Calcium 9.3 mg/dl (8.4-10.2); Carbon Dioxide 31 mmol/L (22.0-30.0); Chloride 103 mmol/L (98-107); Estimated Glomerular Filt Rate 50 ml/min (>60); GFR (African American) 60 ML/MIN (>60); Globulin 2.9 g/dL (1.3-3.2); Glucose 81 mg/dl (74-100); Potassium 5.4 mmoL/L (3.5-5.1); Sodium 139 mmol/L (136-145); Total Protein,Serum 7.3 g/dl (6.3-8.2)
[2022-12-19 15:18] LABS: 25-OH Vitamin D, Total 42.9 ng/mL (30-100)
[2022-12-19 15:50] LABS: Vitamin B12 365 pg/mL (239-931)
[2022-12-19 16:37] LABS: Basophils % 0.5 % (0.1-2.0); Eosinophils # 0.1 K/mm3 (0.0-0.4); Eosinophils % 2.7 % (0.1-12.0); Hematocrit 40.4 % (37.0-47.0); Hemoglobin 12.8 g/dL (12.2-16.2); Lymphocytes # 1.6 K/mm3 (0.7-4.5); Lymphocytes % 40.6 % (10-50); Mean Corpuscular HGB Conc 31.8 g/dL (31.8-35.4); Mean Corpuscular Hemoglobin 29.6 pg (27.0-31.2); Mean Corpuscular Volume 93.1 fl (81-99); Mean Platelet Volume 7.4 fl (7.4-10.4); Monocytes # 0.2 K/mm3 (0.1-1.0); Monocytes % 5.9 % (1.7-9.3); Neutrophils % 50.2 % (37.0-80.0); Platelet Count 236 K/mm3 (142-424); Red Blood Count 4.34 M/mm3 (4.20-5.40); Red Cell Distribution Width 13.4 % (11.5-17.5)
== END ==
PROVIDERS: PCP Nurse Practitioner Family; Visit Provider Internal Medicine Adolescent Medicine
DX: H53.9 Unspecified visual disturbance (principal); R27.0 Ataxia, unspecified; R41.3 Other amnesia; E66.9 Obesity, unspecified; Z68.36 Body mass index [BMI] 36.0-36.9, adult; Z85.72 Personal history of non-Hodgkin lymphomas
CPT/HCPCS: 36415; 70551; 80053; 82306; 82607; 84443; 85025; 93880

== ENCOUNTER 2023-02-06 10:30 | Outpatient (RCR) | payer MEDICARE, SELFPAY ==
--- NOTE | 2023-01-08 17:04 | HMH.PTOPEV ---
PT Outpatient Evaluation Rehab PT Outpatient Evaluation Start: 01/08/23 16:44 Freq: Status: Active Protocol: Document 01/08/23 16:44 PHORNE (Rec: 01/08/23 17:03 PHORNE [id number]) E-signed By Jc iVramontes, PT Outpatient Therapy Subjective History Subjective History This is the initial PT eval for Bia Erwin, 67 yowf who presents with c/o decreased balance and feelings of dizziness x ~ 6 mos overall. She reports prior hx of BPPV in the past, but states, I know it's not that, this feels different. She reports several episodes of feeling unstable while driving and with quick movements, especially turning in standing . 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 She reports her dizziness began around that time, as well as feelings of confusion and brain fog since this treatment. She had brain MRI ~ 3 wks ago which was normal with no acute process noted. She has hx of L ASHLYN and L TSA. Chief Complaint Other,Decreased Coordination Symptoms Relieved By Rest/Positioning Symptoms Aggravated By Physical Activity,Twisting Prior Functional Limitations None Current Functional Limitations Driving,Recreation Activity, Walking Symptom Description Activity Dependent Level of pain today (0-10) 0 Balance Eval Current Functional Limitations Comment [place]-Hallpike and horizontal roll performed without nystagmus or vertigo. Hx of Falls Hx Falls No Gait/Posture Asssessment General Gait Observation No Deviations/Normal Nystagmus Nystagmus Presence None Oculomotor Gaze Oculomotor Gaze Nml: Vergence Smooth Pursuit Saccades VOR Cancellation Cover/Uncover Cross Cover [place] Feet Together/Eyes open/Stable Surface pass Feet Together/Eyes Closed/Stable Surface pass
== END 2023-02-06 10:35 | disposition home or self-care (01) ==
LOC: PT 10:30
PROVIDERS: PCP Nurse Practitioner Family; Visit Provider Internal Medicine Adolescent Medicine
DX: R42 Dizziness and giddiness (principal)
CPT/HCPCS: 97110; 97112; 97163; 97530

== ENCOUNTER 2023-06-09 16:13 | Outpatient (CLI) | payer MEDICARE, SELFPAY ==
--- NOTE | 2023-06-09 16:16 | MM_ITS ---
PROCEDURE INFORMATION: Exam: MG Bilateral Screening 3D Mammography Exam date and time: 06/09/2023 4:10 PM Age: 68 years old Clinical indication: Screening. No family history of breast cancer. TECHNIQUE: Imaging protocol: Bilateral Screening tomosynthesis and 2D mammography including computer-aided detection (CAD) when performed. COMPARISON: 1. MG MM DIG SCREENING MAMM BI W/CAD 05/08/2022 8:26 AM 2. MG MM DIG SCREENING MAMM BI W/CAD 04/26/2020 8:52 AM 3. MG SCBI MM Dig screening mamm BI w/CAD 09/25/2017 9:32 AM FINDINGS: MAMMOGRAPHY: Breast composition: There are scattered areas of fibroglandular density. Mass: None. Architectural distortion: None. Calcifications: No suspicious calcifications. Asymmetric density: None. Skin thickening: None. Axillary adenopathy: None. IMPRESSION: No mammographic evidence of malignancy. Annual screening is recommended unless otherwise clinically indicated. ASSESSMENT: BI-RADS Category 1: Negative
== END 2023-06-09 23:59 ==
LOC: RAD 16:13
PROVIDERS: PCP Nurse Practitioner Family; Visit Provider Nurse Practitioner Family
DX: Z12.31 Encounter for screening mammogram for malignant neoplasm of breast (principal)
CPT/HCPCS: 77063; 77067

== ENCOUNTER → 2023-06-19 15:00 | Outpatient (CLI) | payer MEDICARE, SELFPAY ==
--- OUTSIDE RECORDS SUMMARY | 2023-06-19 15:04 | XMS_ITS | Clinical Summary ---
Author Name Unknown Address [address] [place] [address] [place] [address] Phone Organization [facility] , [facility] Address [address] [address] Phone Care Team Providers Care Pattern Chain Builder Name Role Phone MELANY ALMAGUER MD Primary Care Provider [phone] Tay Dickinson MD Unavailable [phone] Izaiah WOODS, Saul Knight Unavailable [phone] Malena Ramey APRN Unavailable Leslie vailable Reason for Visit and Chief Complaint The Chief Complaint is: Left shoulder follow up Problems Includes: Problems addressed during this encounter and other active Problems All Visits Onset Date Resolved Date Provider Condition S tatus Joint Pain, Localized in the Shoulder 01/24/2021 Saul Bliss MD Active Plan of Treatment Fall Risk Assessment: This patient has been identified as a fall risk. Balance/gait along with postural blood pressure, vision and home fall hazards have been assessed. Medications have been reviewed, and recommendations made with regard to contributing factors for future falls. Plan of care: Consideration of vitamin D supplementation along with balance and strength training with consideration for formal physical therapy has been discussed with the patient. - Last Documented On 10/22/2021 10:49AM ; [facility], [facility] We will progress as tolerated. We will see her back as scheduled. She likely has some cuff tendinitis but nothing I am concerned about. She does take Mobic for this. We will see her as scheduled - Last Documented On 10/22/2021 10:49AM ; [facility] Instructions to patient Lose weight Last Documented On 10:30AM ; [facility] Assessments Includes: Assessments from this encounter Findings Left total shoulder arthroplasty - Last Documented On 10/22/2021 10:49AM ; [facility] Instructions Includes: Instructions from this encounter Instructions to patient Lose weight Last Documented On 10:30AM ; [facility] Medical Equipment - Implanted Devices Includes: Current Devices No Medical Equipment Recorded Medications Includes: Medications discussed during this encounter and other current Medications Current Medications (continue as prescribed) Synthroid 88 MCG Oral Tablet 12/19/2020 Provider: Tay Dickinson Diagnosis: Meloxicam 7.5 MG Oral Tablet 12/19/2020 Provider: Tay Dickinson Diagnosis: Past Medications on file Metaxalone 800 MG Oral Tablet 05/20/2022 - 05/30/2022 Provider: Saul samuels MD Diagnosis: three times a day Zofran 4 MG Oral Tablet 04/24/2021 - 05/04/2021 Provid er: Saul Bliss MD Diagnosis: Take 1 tablet every 8 hrs pr n pain Take 1 tablet every 8 hrs prn post op nausea Benzoyl Peroxide Wash 5% External Liquid 04/24/2021 - 04/25/2021 Provider: Saul samuels MD Diagnosis: use as directed by Dr. Bliss Meloxicam 7.5 MG Oral Tablet 01/10/2020 - 03/10/2020 Provider: Mauricio Sequeira MD Diagnosis: 1 tablet by mouth daily Ondansetron HCl 4 MG Oral Tablet 11/17/2019 - 12/17/2019 Provider: Mauricio Sequeira MD Diagnosis: 1 tab every 6 hrs prn nausea POST OP ONLY oxyCODONE HCl 5 MG Oral Tablet 11/12/2019 - 11/22/2019 Provider: Mauricio Sequeira MD Diagnosis: Take 1 tablet by mouth every 4-6 hours as needed for pain oxyCODONE HCl 5 MG Oral Tablet 11/12/2019 - 11/22/2019 Provider: Mauricio Sequeira MD Diagnosis: Take 1 tablet by mouth every 4-6 hours as needed for pain Cephalexin 500 MG Oral Tablet 11/11/2019 - 11/14/2019 Provider: Mauricio Sequeira MD Diagnosis: Take 1 capsule by mouth every 6 hours Meloxicam 7.5 MG Oral Tablet 11/11/2019 - 11/25/2019 Provider: Mauricio Sequeira MD Diagnosis: Take 1 tablet by mouth daily for 14 days post op Colace 100 MG Oral Capsule 11/11/2019 - 02/09/2020 Pro vider: Mauricio Abel MD Diagnosis: Take 1-2 capsules daily as needed Aspirin EC 81 MG Oral Tablet Delayed Release 11/11/2019 - 12/11/2019 Provider: Mauricio Abel MD Diagnosis: Take 1 tablet by mouth every 12 hours for 30 days post op Acetaminophen 500 MG Oral Tablet 11/11/2019 - 11/25/2019 Provider: Mauricio Sequeira MD Diagnosis: Take 2 tablets up to 3 times daily as needed pos t op Mupirocin 2% External Ointment 11/11/2019 - 11/14/2019 Provider: Mauricio Sequeira MD Diagnosis: Apply small amount to the in side of each nostril 3 times per day AFTER Covid 19 test Mobic 15 MG Tablet 01/05/2016 - 02/04/2016 Provider: Juliocesar Samaniego MD Diagnosis: once a day Medications Administered Includes: Administered Medications from this encounter No Administered Medications Recorded Vital Signs Includes: Vital Signs from this encounter Vital Name 10/22/2021 10:39A Blood Pressure Sitting (mmHg) 107/70 Pulse Rate-Sitting (bpm) 83 Height (in) 62 Weight (lb) 170 Body Mass Index (kg/m2) 31.1 Body Surface Area (m2) 1.8 Note: hdv Last Documented: On 10/22/2021 10:40A M ; [facility], [facility] Results Includes: Results discussed during this encounter No Results Recorded For Specified Dates History of Present Illness Includes: History of Present Illness from this encounter KAYKAY Erwin is a 66 year old female. - Allergy list reviewed - Problem list reviewed - Medication reconciliation performed - Medication list reviewed Patient is in today for follow-up on total shoulder arthroplasty she has had some pain last week. No trauma. Pain mainly with repetitive motion Social History Description Last Updated No caffeine use 01/24/2021 Procedures and Surgical History Includes: Procedures from this encounter Procedures Code Diagnosis Performing Provider Service L ocation Service Date history of orthopedic options: physical therapy Surgical History Last Updated History of back surgery 12/28/2015 Medical History Includes: Medical History addressed during this encounter Description Last Updated Past medical and surgical history non-co ntributory 01/24/2021 Family History Includes: Family History addressed during this encounter Description Last Updated stroke/seizure ~Father had 2 heart attacks, high blood pressure and bad arthritis 01/24/2021 Review of Systems Includes: Review of Systems from this encounter Systemic: Not feeling tired and no recent weight loss. Recent weight gain. No edema. Head: No headache and no sinus pain. Eyes: No vision problems and no glaucomatous visual field defect. Otolaryngeal: No hearing loss and no tinnitus. No nasal symptoms. Cardiovascular: No chest pain or discomfort and no palpitations. Pulmonary: No daytime asthma symptoms, no cough, and no chronic cough. No wheezing. Gastrointestinal: No heartburn and no abdominal pain. Endocrine: No hot flashes. Muscle weakness. Hematologic: No easy bleeding and no tendency for easy bruising. Musculoskeletal: Lower back pain. No soft tissue swelling. Pain localized to one or more joints. Neurological: No dizziness, no convulsions, and no numbness. Psychological: No anxiety, no emotional lability, no depression, and no insomnia. Not crying for no reason. Skin: No dry skin, no rash, and no ulcers. Allergic and Immunologic: No complaint of seasonal allergic reaction. Mental Status Includes: Mental Status from this encounter Description No anxiety Functional Status Includes: Functional Status from this encounter No Functional Status Recorded Physical Exam Includes: Physical Exam from this encounter Immunizations Includes: Immunizations addressed during this encounter Vaccine Dose # Date Site Reaction(s) Status Source Influenza 1 10/22/2021 Complete (Refused - Patient objection) [facility], [facility] Allergies Includes: Active Allergies Substance Type Reaction Onset Date Resolved Date Statu s nickel allergy Allergy Skin Rashes / Er uption of skin, Hives / Urticaria 01/24/2021 Active Encounters Encounter Provider Location Date Check-In Time Check- Out Time Diagnosis Follow Up Sarah Leija PA-C [facility] 2 10:20AM 10:47AM Insurance Includes: Active Insurance Policies Plan Name Member ID Group # Subscriber Relationship Effect marcelo Dates 1 - [employer] [id number] Bia Erwin Self 06/02/19 21 - Unknown Clinical Notes Includes: Clinical Notes from this encounter No Clinical Notes Recorded
--- OUTSIDE RECORDS SUMMARY | 2023-06-19 15:04 | XMS_ITS | Clinical Summary ---
Author Name Unknown Address [address] [place] [address] [place] [address] Phone Organization [facility] , [facility] Address [address] [place] [address] Phone Care Team Providers Care Gold Prospector Name Role Phone TRIPP WOODS, MELANY Primary Care Provider [phone] Tay Dickinson MD Unavailable [phone] Saul Bliss MD Unavailable [phone] Malena Ramey APRN Unavailable Leslie vailable Reason for Referral Date Encounter Description Provider Reason for Referral 05/10/21 Post Op Bridget Young PA-C Referra l To Physician - see pcp for bp Reason for Visit and Chief Complaint The Chief Complaint is: Left shoulder pain Problems Includes: Problems addressed during this encounter and other active Problems All Visits Onset Date Resolved Date Provider Condition S tatus Joint Pain, Localized in the Shoulder 01/24/2021 Saul Bliss MD Active Plan of Treatment Overall, she is doing well at today's follow-up appointment. I reviewed the physical exam findings and radiographs at today's appointment. We reviewed operative details. We reviewed the total shoulder protocol. she is comfortable the plan moving forward. We will plan to follow up with her in 4 weeks or sooner if needed. - Last Documented On 05/16/2021 12:03PM ; [facility] Pending Tests Order Diagnosis Results Due Ordering P rovider Therapy - Physical Therapy Shoulder 05/10/21 Bridget Young PA-C Assessments Includes: Assessments from this encounter Findings Status post left total shoulder - Last Documented On 05/16/2021 12:03PM ; [facility] Medical Equipment - Implanted Devices Includes: [...] Vital Signs from this encounter Vital Name 05/10/2021 01:42P Blood Pressure Sitting (mmHg) 121/79 Pulse Rate-Sitting (bpm) 103 Height (in) 62 Weight (lb) 165 Body Mass Index (kg/m2) 30.2 Body Surface Area (m2) 1.8 Note: ML Last Documented: On 05/10/2021 1:43PM ; [facility], [facility] Results Includes: Results discussed during this encounter No Results Recorded For Specified Dates History of Present Illness Includes: History of Present Illness from this encounter HPI Bia Erwin is a 66 year old female. - Allergy list reviewed - Problem list reviewed - Medication reconciliation performed - Medication list reviewed This is her first postoperative appointment following left total shoulder replacement. Overall, she reports that she is doing well. Her pain is well controlled. She has remained in the sling. She is working on hand, wrist, and elbow range of motion. Social History Description Last Updated No caffeine [...] Exam Includes: Physical Exam from this encounter Allergies Includes: Active Allergies Substance Type Reaction Onset Date Resolved Date Statu s nickel allergy Allergy Skin Rashes / Er uption of skin, Hives / Urticaria 01/24/2021 Active Encounters Encounter Provider Location Date Check-In Time Check- Out Time Diagnosis Post Op Bridget Young PA-C [facility] 1 1:05PM 2:19PM Insurance Includes: Active Insurance Policies Plan Name Member ID Group # Subscriber Relationship Effect marcelo Dates 1 - [employer] [id number] Bia Hernandes 06/02/19 21 - Unknown Clinical Notes Includes: Clinical Notes from this encounter No Clinical Notes Recorded
--- OUTSIDE RECORDS SUMMARY | 2023-06-19 15:04 | XMS_ITS | Clinical Summary ---
Author Name Unknown Address [address] [place], [place] [address] [place] [address] Phone Organization [facility] , [facility] Address [address] [address] Phone Care Team Providers Care Box Truck Washer Name Role Phone TRIPP WOODS, MELANY Primary Care Provider [phone] Tay Dickinson MD Unavailable [phone] Izaiah WOODS, Saul Knight Unavailable [phone] Malena Ramey APRN Unavailable Leslie vailable Reason for Referral Date Encounter Description Provider Reason for Referral 07/09/21 Post Op Sarah Leija PA-C Refe rral To Physician Reason for Visit and Chief Complaint The Chief Complaint is: Left shoulder pain Problems Includes: Problems addressed during this encounter and other active Problems All Visits Onset Date Resolved Date Provider Condition S tatus Joint Pain, Localized in the Shoulder 01/24/2021 Saul Bliss MD Active Plan of Treatment she is a protector subscap for about another month. She understands this. We will see her back as scheduled in. 3-4 months - Last Documented On 07/20/2021 9:15AM ; [facility], [facility] Instructions to patient Lose weight Last Documented On 2 10:05AM ; [facility], [facility] Assessments Includes: Assessments from this encounter Findings Shoulder arthroplasty - Last Documented On 07/20/2021 9:15AM ; [facility], [facility] Instructions Includes: Instructions from this encounter Instructions to patient Lose weight Last Documented On 2 10:05AM ; [facility], [facility] Medical Equipment - Implanted Devices Includes: Current [...] Vital Signs from this encounter Vital Name 07/09/2021 10:05A Blood Pressure Sitting (mmHg) 167/111 Pulse Rate-Sitting (bpm) 65 Height (in) 62 Weight (lb) 170 Body Mass Index (kg/m2) 31.1 Body Surface Area (m2) 1.8 Note: msc Last Documented: On 07/09/2021 10:06A M ; [facility], [facility] Results Includes: Results discussed during this encounter No Results Recorded For Specified Dates History of Present Illness Includes: History of Present Illness from this encounter HPI Bia Erwin is a 66 year old female. - Allergy list reviewed - Problem list reviewed - Medication reconciliation performed - Medication list reviewed Patient is in today for follow-up on her shoulder she is doing well postoperatively Social History Description Last Updated No caffeine [...] Time Check- Out Time Diagnosis Post Op Sarah Leija PA-C [facility] 2 9:45AM 10:14AM Insurance Includes: Active Insurance Policies Plan Name Member ID Group # Subscriber Relationship Effect marcelo Dates 1 - [employer] [id number] Bia Erwin Self 06/02/19 21 - Unknown Clinical Notes Includes: Clinical Notes from this encounter No Clinical Notes Recorded
--- OUTSIDE RECORDS SUMMARY | 2023-06-19 15:04 | XMS_ITS | Clinical Summary ---
Author Name Unknown Address [address] [place] [address] [place] [address] Phone Organization [facility] , [facility] Address [address] [address] Phone Care Team Providers Care Nurse Name Role Phone MELANY ALMAGUER MD Primary Care Provider [phone] Tay Dickinson MD Unavailable [phone] Izaiah WOODS, Saul Knight Unavailable [phone] Malena Ramey APRN Unavailable Leslie vailable Reason for Visit and Chief Complaint The Chief Complaint is: Left shoulder follow up Problems Includes: Problems addressed during this encounter and other active Problems All Visits Onset Date Resolved Date Provider Condition S tatus Joint Pain, Localized in the Shoulder 01/24/2021 Saul Bliss MD Active Plan of Treatment NON SURGICAL PLAN: I reviewed the xrays performed today in the office. The implants are in good alignment with no signs of loosening. The incision is well healed with no signs of infection or drainage. She was doing well initially. Her pain began in the last two months that has been persistent. She denies any trauma. She denies any fever or chills. After going through physical exam, I believe this is muscular related. She is currently battling lymphoma. I recommended we start with specific therapy to work on modalities, scapula and postural training to help relax muscles. I will also provide her with a prescription for skelxain to take as needed for muscle spasm. We will see her back as scheduled for reassessment. All questions have been answered at this time. - Last Documented On 06/13/2022 9:14AM ; [facility] Fall Risk Assessment: This patient has been [...] with the patient. - Last Documented On 06/13/2022 9:14AM ; [facility], [facility] Instructions to patient Lose weight Last Documented On 2 2:56PM ; [facility], [facility] Assessments Includes: Assessments from this encounter Findings Left shoulder status post total shoulder arthroplasty w/ subscap weakness - Last Documented On 06/13/2022 9:14AM ; [facility], [facility] Instructions Includes: Instructions from this encounter Instructions to patient Lose weight Last Documented On 2 2:56PM ; [facility], [facility] Medical Equipment - Implanted Devices Includes: Current Devices No Medical Equipment Recorded Medications Includes: Medications discussed during this encounter and other current Medications New / Renewed during this visit Saul Bliss MD on 05/20/2022 Metaxalone 800 MG Oral Tablet Provider: Saul Bliss MD 10 day supply: 30 tablet, 0 refills Diagnosis: three times a day Pharmacy: [facility]/pharmacy #[id number] - [address] [facility], [address] - Current Medications (continue as prescribed) Synthroid 88 MCG Oral Tablet 12/19/2020 Provider: Tay Dickinson Diagnosis: Meloxicam 7.5 MG Oral Tablet 12/19/2020 Provider: Tay Dickinson Diagnosis: Past Medications on file Zofran 4 MG Oral Tablet 04/24/2021 - [...] Vital Signs from this encounter Vital Name 05/20/2022 05:14P Blood Pressure Sitting (mmHg) 122/73 Pulse Rate-Sitting (bpm) 80 Height (in) 62 Weight (lb) 187 Body Mass Index 34.2 Body Surface Area 1.9 Note: cb Last Documented: On 05/20/2022 5:14PM ; [facility], [facility] Results Includes: Results discussed during this encounter No Results Recorded For Specified Dates History of Present Illness Includes: History of Present Illness from this encounter HPI Bia Erwin is a 67 year old female. - Allergy list reviewed - Problem list reviewed - Medication reconciliation performed - Medication list reviewed 67 year old female presents today for follow up status post left total shoulder arthroplasty performed on 04/27/2021. She was doing well until recently. She denies any trauma. She denies any fever or chills. She describes her pain being a dull ache. She has to prop pillows under her arm for support. She was recently diagnosed with lymphoma. Social History Description Last Updated No recent change in diet 05/20/2022 Procedures and Surgical History Includes: Procedures from [...] Time Check- Out Time Diagnosis Follow Up Saul Bliss MD [facility] 2 2:48PM 3:43PM Insurance Includes: Active Insurance Policies Plan Name Member ID Group # Subscriber Relationship Effect marcelo Dates 1 - [employer] [id number] Bia Erwin Self 06/02/19 21 - Unknown Clinical Notes Includes: Clinical Notes from this encounter * Progress note Date Encounter Last Documented by 05/20/2022 Follow Up Last documented on 06/13/2022; 9:14 AM, Saul Bliss MD; [facility], [facility] Active Problems & Conditions - Joint Pain in the Left Hip - Joint Pain in the Right Knee - Joint Pain, Localized in the Shoulder Chief Complaint The Chief Complaint is: Left shoulder follow up. Referred Here Referred by pcp. History of Present Illness Bia Erwin is a 67 year old female. - Allergy list reviewed - Problem list reviewed - Medication reconciliation performed - Medication list reviewed 67 year old female presents today for follow up status post left total shoulder arthroplasty performed on 04/27/2021. She was doing well until recently. She denies any trauma. She denies any fever or chills. She describes her pain being a dull ache. She has to prop pillows under her arm for support. She was recently diagnosed with lymphoma. Current Medication - Meloxicam 7.5 MG Oral Tablet 90 days, 0 refills - Synthroid 88 MCG Oral Tablet 90 days, 0 refills Past Medical/Surgical History Reported: Medical: Thyroid disease, gallbladder disease, and joint problems arthritic. Immunization History: No recent immunization for flu and not for pneumococcal pneumonia. Diagnoses: Thyroid Disease. Osteoporosis Past medical and surgical history non-contributory. Procedural: - History of Gallbladder Surgical: - Back surgery - Total hip replacement November 15 2019 Previous Therapy - History of orthopedic options: physical therapy Social History Not a current smoker. Current diet: No recent change in diet. No recent change in diet. Caffeine use: No caffeine use. Tobacco use: No tobacco use and not a current smoker. Tobacco non-user and non-smoker. Smoking status: Never smoker. Alcohol: Not using alcohol. Drug Use: Not using drugs. Habits: Not exercising regularly. Allergies - nickel allergy Reaction: Hives / Urticaria, Skin Rashes / Eruption of skin Family History Heart disease Stroke / Seizures Stroke/seizure Father had 2 heart attacks, high blood pressure and bad arthritis Systemic hypertension Osteoporosis Paternal: Heart disease Systemic hypertension Stroke/ Review Of Systems Systemic: Not feeling tired and no recent [...] Immunologic: No complaint of seasonal allergic reaction. Physical Findings - Vitals taken 05/20/2022 05:14 pm cb BP-Sitting 122/73 mmHg Pulse Rate-Sitting 80 bpm Height 62 in Weight 187 lbs Body Mass Index 34.2 kg/m2 Body Surface Area 1.9 m2 Standard Measurements: - Patient was overweight. PATIENT ALERTED AND ORIENTED X 3 SHOULDER: Left INSPECTION: ATROPHY: negative DEFORMITY: negative ROM: PFE: 140 PER: 55 PIR: 20 AFE: 150 AER: 55 AIR: S1 IMPINGEMENT: STRENGTH: (ROTATOR CUFF) EMPTY CAN: 5- / 5 EXTERNAL ROTATION: 5 / 5 SPECIAL TESTING: BELLY PRESS: negative BEAR HUG: negative LIFT OFF: positive NEURO/VASCULAR SENSATION: normal AXILLARY: LABC: RADIAL: MEDIAN: ULNAR: MOTOR: normal DELTOID: BICEPS: TRICEPS: EPL: FPL: IO: PULSES: normal RADIAL: ULNAR: Tests XR Shoulder (Left): X-rays 3 view of the shoulder show well aligned prosthesis. No sign of loosening fracture or dislocation. XR Shoulder (Left): Well-positioned left total shoulder replacement with no evidence of loosening or hardware failure. Assessment Left shoulder status post total shoulder arthroplasty w/ subscap weakness Previous Tests Imaging: X-Ray: An X-ray was performed. MRI Scan: An MRI was performed. Therapy - Clinical summary provided to patient. Counseling/Education - Lose weight Plan StartCited - Other Metaxalone 800 MG tablet three times a day, 10 days, 0 refills EndCited NON SURGICAL PLAN: I reviewed the xrays performed today in the office. The implants are in good alignment with no signs of loosening. The incision is well healed with no signs of infection or drainage. She was doing well initially. Her pain began in the last two months that has been persistent. She denies any trauma. She denies any fever or chills. After going through physical exam, I believe this is muscular related. She is currently battling lymphoma. I recommended we start with specific therapy to work on modalities, scapula and postural training to help relax muscles. I will also provide her with a prescription for skelxain to take as needed for muscle spasm. We will see her back as scheduled for reassessment. All questions have been answered at this time. Fall Risk Assessment: This patient has been [...] therapy has been discussed with the patient. Notes This dictation was done with voice recognition software and may contain errors and omissions. transcribed by [facility] Use of tobacco assessment performed and patient screened for future fall risk documentation of any fall with injury in past year; No influenza immunization patient refused. Care Team - Tay Dickinson - - Malena Ramey APRN
--- OUTSIDE RECORDS SUMMARY | 2023-06-19 15:04 | XMS_ITS ---
Care Plan - [facility], [facility] Created on: June 19, 2023 Bia Erwin : 1955 Sex: Female Author Name Unknown Address [address] [place] [address] Phone Organization [facility] , [facility] Address [address] [place] [address] Phone Care Team Providers Care Senior Electronics Engineer Name Role Phone TRIPP WOODS, MELANY Primary Care Provider [phone] Tay Dickinson MD Unavailable [phone] Saul Bliss MD Unavailable [phone] Malena Ramey APRN Unavailable Leslie vailable
== END ==
PROVIDERS: PCP Nurse Practitioner Family; Visit Provider Nurse Practitioner Family
DX: G47.33 Obstructive sleep apnea (adult) (pediatric) (principal); R06.83 Snoring
CPT/HCPCS: G0399

== ENCOUNTER 2023-12-17 16:27 | Emergency (ER) | payer MEDICARE, SELFPAY ==
--- NOTE | 2023-12-17 16:35 | ECG_ITS ---
APPROVED REPORT Exam: Resting ECG HR:150 bpm ECG Measurements Heart Rate 150 AXES QRSd 90 QRS 60 QT 274 T 30 QTc 359 Conclusion ATRIAL FIBRILLATION WITH RAPID VENTRICULAR RESPONSE NONSPECIFIC T-WAVE ABNORMALITY CRITICAL TEST RESULT UNCONFIRMED REPORT Electronically signed by : Tay Dior, 12/17/2023 23:06:25
[2023-12-17 16:47] VITALS: BP 128/92; PULSE 129; RESP 20; TEMP 36.8; O2SAT 100; BMI 34.9
[2023-12-17 17:00] VITALS: BP 131/79; PULSE 79; RESP 12; O2SAT 100
--- NOTE | 2023-12-17 17:04 | XR_ITS ---
PROCEDURE INFORMATION: Exam: XR Chest Exam date and time: 12/17/2023 5:12 PM Age: 68 years old Clinical indication: Dyspnea TECHNIQUE: Imaging protocol: Radiologic exam of the chest. Views: 1 view. COMPARISON: CT CHEST W CON 01/15/2022 9:39 AM and chest x-ray 11/04/2019 FINDINGS: Lungs: Unremarkable. No consolidation. Pleural spaces: Unremarkable. No pleural effusion. No pneumothorax. Heart/Mediastinum: Unremarkable. No cardiomegaly. Bones/joints: Unremarkable. IMPRESSION: Stable chest x-ray with no acute disease.
--- NOTE | 2023-12-17 17:04 | ECG_ITS ---
APPROVED REPORT Exam: Resting ECG HR:79 bpm ECG Measurements Heart Rate 79 AXES DE 155 P 55 QRSd 78 QRS 55 QT 366 T 58 QTc 401 Conclusion Sinus rhythm Electronically signed by : EDENILSON LEDEZMA, 12/18/2023 22:39:27
--- NOTE | 2023-12-17 17:10 | ED_ITS ---
Discharge Plan Disposition Patient Disposition: Home, Self-Care Prescriptions Prescriptions: New Eliquis 5 mg tablet 5 mg PO BID 90 Days Qty: 190 0RF No Action meloxicam 7.5 mg tablet 7.5 mg PO DAILY omeprazole 20 mg capsule,delayed release(DR/EC) 20 mg PO DAILY melatonin 10 mg capsule 10 mg PO HS PRN levothyroxine [Synthroid] 88 mcg tablet 88 mcg PO DAILY Referrals Follow up/Referrals: Nico Morrison MD [Staff Physician] - See instructions Malena Ramey APRN [Primary Care Provider] - See instructions Activity Restrictions/Add. Instructions Additional Instructions/Restrictions: You have paroxysmal atrial flutter today you had a episode of rapid ventricular response which spontaneously resolved. Given the fact that you have had numerous episodes recently we will anticoagulate you as discussed. Please have a close follow-up appointment with our pit inspector at which point they will discuss rate control versus further rhythm control. Return to the emergency department with any high heart rate that is not improving with symptoms such as chest pain lightheadedness passing out or other complaints. No other emergent medical condition identified today. Clinical Impressions Clinical Impression: Atrial flutter with rapid ventricular response Discharge ED Provider: Tim Dior General Adult HPI General Chief complaint: Arrhythmia/Palpitations Stated complaint: phy ref-abn EKG Time Seen by Provider: 12/17/23 16:48 Mode of Arrival: Ambulatory Source of Information: Patient Limitations: No Limitations Description of Symptoms (Recalled from ER Triage Doc. by RN): pt to ed c/o chest palpitations x2 weeks. pt states she seen her pcp today for this complaint and was sent to ed for eval. pt denies cp or heaviness. History of Present Illness HPI narrative: Patient is a 68-year-old female presenting today with heart palpitations that have been intermittent over the last 2 weeks. States when she has these episodes she feels lightheaded and dizzy. No symptoms outside of this. No chest pain associated with this. She is currently without any symptoms on my evaluation. 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 Related Data Home Medications Medication Instructions Recorded Confirmed levothyroxine 88 mcg tablet 88 mcg PO DAILY thyroid 09/23/17 05/02/22 (Synthroid) melatonin 10 mg capsule 10 mg PO HS PRN 05/02/22 05/02/22 meloxicam 7.5 mg tablet 7.5 mg PO DAILY 05/02/22 05/02/22 omeprazole 20 mg capsule,delayed 20 mg PO DAILY 05/02/22 05/02/22 release Previous Rx's Medication Instructions Recorded apixaban 5 mg tablet (Eliquis) 5 mg PO BID 90 days #190 tabs 12/17/23 Allergies Allergy/AdvReac Type Severity Reaction Status Date / Time No Known Allergies Allergy Verified 05/02/22 14:36 [facility] Disclaimer: The information contained in this section may have been updated after the patient was seen, as this information can be updated by other users. Medical History Gallbladder disease Hypothyroid Osteoarthritis Skin cancer Surgical History H/O shoulder surgery left History of cholecystectomy History of left hip replacement Hx of cervical spine surgery Family History Other Family history of myocardial infarction Stroke Social History Smoking Status: Never smoker alcohol intake: never substance use type: denies use current occupational status: retired Travel in the last 8 weeks: None household members: spouse housing: house current occupational exposures/hazards: No caffeine: Yes special marlyn needs: No agree to transfusion: No do you feel safe at home: Yes victim of physical abuse: No victim of emotional abuse: No victim of sexual abuse: No would you like helpful sources: No ROS Obtained: Yes All systems reviewed & no additional complaints except as documented Physical Exam General General appearance: alert Respiratory Respiratory exam: Present normal lung sounds bilaterally and respiratory distress Cardiovascular Cardiovascular exam: Present regular rate and normal rhythm Neurological Exam Neurological exam: Present alert and oriented X3 Medical Decision Making Fran Inquiry Pt receiving controlled substance: No Vital Signs: 12/17/23 16:47 12/17/23 17:00 12/17/23 17:30 Temperature 98.2 F Temperature Source Oral Pulse Rate 79 68 Pulse Rate [Left Radial] 129 H Respiratory Rate 20 12 15 Blood Pressure 131/79 123/69 Blood Pressure [Right Arm] 128/92 H Blood Pressure Mean [Right Arm] 104 02 Sat by Pulse Oximetry 100 100 96 Oxygen Delivery Method Room Air 12/17/23 18:00 Temperature Temperature Source Pulse Rate 71 Pulse Rate [Left Radial] Respiratory Rate 14 Blood Pressure 127/70 Blood Pressure [Right Arm] Blood Pressure Mean [Right Arm] 02 Sat by Pulse Oximetry 95 Oxygen Delivery Method Lab Data Lab results reviewed: Yes I reviewed the patient's lab results. Lab Results 12/17/23 16:43: WBC 6.3, RBC 4.67, Hgb 14.6, Hct 43.4, MCV 93.0, MCH 31.2, MCHC 33.6, RDW 13.5, Plt Count 260, MPV 7.2 L, Neut % (Auto) 55.6, Lymph % (Auto) 35.7, [place] % (Auto) 6.1, Eos % (Auto) 1.8, Baso % (Auto) 0.8, Neut # (Auto) 3.5, Lymph # (Auto) 2.3, [place] # (Auto) 0.4, Eos # (Auto) 0.1, Baso # (Auto) 0.1, Sodium 140, Potassium 4.7, Chloride 110 H, Carbon Dioxide 18 L, Anion Gap 16.7 H , BUN 37 H, Creatinine 1.10 H, Estimated Creat Clear 67, Estimated GFR 49 L, Est GFR ( Amer) 60, Glucose 97, Calcium 9.3, Magnesium 2.1, Total Bilirubin 0.8, AST 49 H, ALT 21, Alkaline Phosphatase 104, Troponin I < 0.01, NT-Pro-B Natriuret Pep 892 H, Total Protein 8.2, Albumin 4.5, Globulin 3.7 H, Albumin/Globulin Ratio 1.2, TSH 1.09 12/17/23 16:43 12/17/23 16:43 Orders (Tests/Meds): ED MEDICATIONS Discontinued Medications Generic Name Dose Route Start Last Admin Trade Name Freq PRN Reason Stop Dose Admin Lactated Ringer's 500 mls @ 999 mls/hr 12/17/23 17:15 12/17/23 17:16 Lactated Ringer's 1000 Ml Bag IV 12/17/23 17:45 999 mls/hr .Q31M YASMANY Administration ORDERS Category Date Time Status CXR --portable [XR chest portable] Stat Exams 12/17/23 17:04 Completed BNP [NT Pro Brain Natriuretic Pep.] Stat Lab 12/17/23 16:43 Completed CBC w/Auto Diff [Complete Blood Count Auto Diff] Stat Lab 12/17/23 16:43 Completed CMP [Comprehensive Metabolic Panel] Stat Lab 12/17/23 16:43 Completed Magnesium Stat Lab 12/17/23 16:43 Completed TSH [Thyroid Stimulating Hormone] Stat Lab 12/17/23 16:43 Completed Trop I [Troponin I] Stat Lab 12/17/23 16:43 Completed Troponin I Q3H Lab 12/17/23 20:15 Ordered Troponin I Q3H Lab 12/17/23 23:15 Ordered ECG Data Tracing #1: I reviewed this ECG and interpreted as documented below: Ventricular rate of one 58-year-old tachycardia with a rate of 300 consistent with atrial flutter with 2-1 conduction with rapid ventricular response there is normal axis no other acute ischemic changes noted Tracing #2: I reviewed this ECG and interpreted as documented below: Ventricular rate of 79 normal sinus rhythm no acute ischemic changes noted no conduction abnormalities noted no longer any atrial flutter back in normal sinus rhythm normal axis Medical Decision Narrative: 68-year-old well-appearing asymptomatic patient on my evaluation who just spontaneously converted back into a normal sinus rhythm prior to my assessment. We were however able to capture an EKG while she was symptomatic which demonstrated atrial flutter with RVR. Will check basic electrolytes TSH etc. give primary cc of fluids and reassess. She does have a CHADS2 Vasc score of 2 I did discuss with her the risk and benefits of anticoagulation which I will initiate her on. Chest x-ray performed which I personally interpreted which shows no acute cardiopulmonary emergency labs otherwise unremarkable from emergency standpoint no evidence of myocardial injury acute coronary syndrome or significant electrolyte abnormalities. BNP very mildly and nonspecifically elevated. Creatinine is 1.1. Discussed with the patient risks and benefits of anticoagulation and we we will proceed with this. Apixaban has been prescribed for 3 months. She has been advised to keep close follow-up appointment with cardiology we did not start on any rate controlling medications as she will discuss this further with her pit inspector. She was in a normal sinus rhythm very well-appearing no symptoms upon being discharged. Critical Care Critical Care Time Critical Care Time: No
[2023-12-17 17:16] LABS: Basophils # 0.1 K/mm3 (0-0.2); Basophils % 0.8 % (0.1-2.0); Eosinophils # 0.1 K/mm3 (0.0-0.4); Eosinophils % 1.8 % (0.1-12.0); Hematocrit 43.4 % (37.0-47.0); Hemoglobin 14.6 g/dL (12.2-16.2); Lymphocytes # 2.3 K/mm3 (0.7-4.5); Lymphocytes % 35.7 % (10-50); Mean Corpuscular HGB Conc 33.6 g/dL (31.8-35.4); Mean Corpuscular Hemoglobin 31.2 pg (27.0-31.2); Mean Platelet Volume 7.2 fl (7.4-10.4); Monocytes # 0.4 K/mm3 (0.1-1.0); Monocytes % 6.1 % (1.7-9.3); Neutrophils # 3.5 K/mm3 (1.8-7.8); Neutrophils % 55.6 % (37.0-80.0); Platelet Count 260 K/mm3 (142-424); Red Blood Count 4.67 M/mm3 (4.20-5.40); Red Cell Distribution Width 13.5 % (11.5-17.5); White Blood Count 6.3 K/mm3 (4.8-10.8)
[2023-12-17] MEDS: LACTATED RINGERS 1000ML 500 ML 999 ML IV (17:16)
[2023-12-17 17:30] VITALS: BP 123/69; PULSE 68; RESP 15; O2SAT 96
[2023-12-17 17:39] LABS: Chloride 110 mmol/L (98-107); Sodium 140 mmol/L (136-145)
[2023-12-17 17:40] LABS: Potassium 4.7 mmoL/L (3.5-5.1)
[2023-12-17 17:42] LABS: Alanine Aminotransferase 21 U/L (12-78); Alkaline Phosphatase 104 U/L (38-126); Anion Gap 16.7 mEq/L (5-15); Aspartate Amino Transferase 49 U/L (14-36); Bilirubin,Total 0.8 mg/dl (0.2-1.3); Blood Urea Nitrogen 37 mg/dl (7-17); Calcium 9.3 mg/dl (8.4-10.2); Carbon Dioxide 18 mmol/L (22.0-30.0); Creatinine Clearance Estimated 67 mL/min (50-200); Estimated Glomerular Filt Rate 49 ml/min (>60); GFR (African American) 60 ML/MIN (>60); Glucose 97 mg/dl (74-100)
[2023-12-17 17:43] LABS: Albumin Level 4.5 g/dl (3.5-5.0); Albumin/Globulin Ratio 1.2 (1.1-1.8); Globulin 3.7 g/dL (1.3-3.2); Magnesium 2.1 mg/dl (1.6-2.3); Total Protein,Serum 8.2 g/dl (6.3-8.2)
[2023-12-17 17:52] LABS: NT Pro Brain Natriuretic Pep. 892 pg/mL (0-125)
[2023-12-17 17:57] LABS: Troponin I < 0.01 ng/ml (0.00-0.034)
[2023-12-17 18:00] VITALS: BP 127/70; PULSE 71; RESP 14; O2SAT 95
[2023-12-17 18:13] LABS: Thyroid Stimulating Hormone 1.09 uIU/mL (0.465-4.68)
[2023-12-17 18:49] VITALS: BP 110/70; PULSE 80; RESP 16; TEMP 36.6; O2SAT 98
== END 2023-12-17 18:51 | disposition home or self-care (01) ==
PROVIDERS: Emergency Provider Student in an Organized Health Care Education/Training Program; PCP Nurse Practitioner Family
DX: I48.91 Unspecified atrial fibrillation (principal); R42 Dizziness and giddiness; E03.9 Hypothyroidism, unspecified; Z85.72 Personal history of non-Hodgkin lymphomas
CPT/HCPCS: 71045; 80050; 80053; 83735; 83880; 84443; 84484; 85025; 93005; 99284; J7120

== ENCOUNTER 2023-12-29 07:52 | Outpatient (CLI) | payer MEDICARE, SELFPAY ==
--- NOTE | 2023-12-29 07:53 | CA_ITS ---
APPROVED REPORT EXAM: Comprehensive 2D, Doppler, and color-flow Echocardiogram Experimental Welder: Darline Dennis RDCS Ht: 5 ft 2 in Wt: 193lbs BSA: 1.88 BP: 119/69 mmHg Indications: AF/RVR,PALPS,DIZZINESS 2D Dimensions Left Atrium 3.43 cm F: 2.7 - 3.8 LA Volume 69.50 mL LVOT 2.01 cm (M/F) 1.5-2.5 LA Volume Index 36.97 mL/m2 (M/F) 16-34 M-Mode Dimensions RVDd 0.94 cm (0.9-2.6) LVDd 5.63 cm (3.5-5.7) Ao Diam 2.99 cm (2.0-3.7) LVDs 4.09 cm (3.5-5.7) IVSd 0.64 cm (0.6-1.1) PWd 0.97 cm (0.6-1.1) EF (Teich) 52.60% FS 27.40% EDV (Teich) 155.60 mL ESV (Teich) 73.80 mL LV Diastology E Decel Time 161 (160-240 msec) E/A Ratio 0.9 MED E' 5.8 (>= 7 cm/sec) E'/MED E' Ratio 10.79 (<= 14) LAT E' 7.3 (>= 10 cm/sec) E/LAT E' Ratio 8.58 (<= 14) Mitral Valve MV E Max Heladio. 63.0 (40-130 cm/s) MV A Velocity 69.0 (40-130 cm/s) E/A Ratio 0.91 MV Decel. Time 161 (160-240 ms) Tricuspid Valve TR P. Velocity 241.00 cm/s RAP Estimate 10.00 mmHg RVSP 33.20 mmHg Left Ventricle The left ventricle is normal size. The left ventricular systolic function is normal. The left ventricular ejection fraction is within the normal range. There is normal left ventricular wall thickness. There is normal LV segmental wall motion. Diastolic function is indeterminate. LVEF is 55%. Right Ventricle The right ventricle is normal size. The right ventricular systolic function is normal. Atria The left atrium is mildly dilated. The right atrium size is normal. There is no Doppler evidence of interatrial shunt. Aortic Valve The aortic valve is mildly thickened. There is no aortic valvular stenosis. Trace aortic regurgitation. Mitral Valve The mitral valve is normal in structure. No evidence of mitral valve stenosis. Mild mitral regurgitation. Tricuspid Valve The tricuspid valve leaflets are thin and pliable. Mild tricuspid regurgitation. RVSP is 20-25 mmHg. Pulmonic Valve The pulmonary valve is normal in structure. Trace pulmonic regurgitation. Great Vessels The aortic root is normal in size. The ascending aorta is not well-visualized. IVC is normal in size and collapses >50% with inspiration. Pericardium There is no pericardial effusion. Other Information Study Quality: Fair Conclusion Normal biventricular systolic function. Mild LA dilation. Mild MR, mild TR. Electronically signed by : Natalie Bridges MD 12/29/2023 11:46:31
== END 2023-12-29 23:59 | disposition home or self-care (01) ==
LOC: RT 07:53
PROVIDERS: PCP Nurse Practitioner Family; Visit Provider Physician Assistant
DX: I48.0 Paroxysmal atrial fibrillation (principal); R00.2 Palpitations; R42 Dizziness and giddiness; R53.83 Other fatigue
CPT/HCPCS: 93225; 93227; 93306

== ENCOUNTER 2023-12-31 07:43 | Outpatient (CLI) | payer MEDICARE, SELFPAY ==
--- NOTE | 2023-12-31 07:43 | NM_ITS ---
APPROVED REPORT Exam: Nuclear Stress Test Indication: Palpitations, Family history Patient Location: Outpatient Stress Tech: Zeynep Garcia [place] Tech:Kiki Sahu, ARRT, RT (R)(N) Ht: 5 ft 2 in Wt: 193 lbs Bra Size: 38DD HR: 60 bpm BP: 133/66 mmHg BSA: 1.88 m2 Rhythm: NSR TID: 1.25 BMI: 35.2 History: Palpitations, Family history Procedure: Patient received 0.4 mg of intravenous Lexiscan, resting heart rate 60 bpm, resting blood pressure 133/66 mmHg, with Lexiscan maximum heart rate achieved was 96 bpm which is % of the maximum predicted heart rate and blood pressure was 134/70 mmHg. With Lexiscan, patient denied any complaint of chest pain. Cardiac Stress and Resting SPECT Images: Cardiac Stress and Resting SPECT images were obtained using technetium 99m Myoview 32.8 mCi stress and 10.41 mCi at rest. Technically difficult study due to significant radiotracer GI uptake in close proximity to the inferior LV wall. This may affect the diagnostic interpretation of the study findings. Resting and stress imaging in supine and prone positions demonstrate no evidence of focal fixed or reversible perfusion defects. There is increase in transient ischemic dilatation ratio (TID 1.25), suggestive of possible multivessel disease or balanced ischemia. Gated imaging demonstrates mild reduction global and regional LV systolic function. LVEF is calculated at 49%. Conclusion: No evidence of focal fixed or reversible perfusion defects. There is increase in transient ischemic dilatation ratio (TID 1.25), suggestive of possible multivessel disease or balanced ischemia. Gated imaging demonstrates mild reduction global and regional LV systolic function. LVEF is calculated at 49%. Electronically signed by : Natalie Bridges MD 12/31/2023 12:01:58
[2023-12-31] MEDS: ISOTOPE MYOVIEW (PER STUDY) 1 DOSE IV (09:18)
[2023-12-31] MEDS: REGADENOSON 0.4MG/5ML SYRINGE 0.4 MG IV (09:18)
[2023-12-31] MEDS: SODIUM CHLORIDE 0.9% 10ML SYR (RAD ONLY) 10 ML IV ×2 (09:18)
--- NOTE | 2023-12-31 09:48 | CA_ITS ---
APPROVED REPORT Exam: Pharmacologic Technologist: Zeynep Hopper, Ht: 5 ft 2 in Wt: 193 lbs BSA: 1.88 m2 HR: 53 bpm BP: 133/66 mmHg Rhythm: NSR Medical History Medications: Synthroid,,,,, MeLOXICAM,,,,, BisOPROLOL Fumarate,,,,, MeLATONIN,,,,, ValACYCLOVIR,,,,, Axipiban,,,,, Stress Test Details Test: LEXISCAN Reason for pharmacologic stress test: physical limitation. HR Resting HR: 60 bpm Max Heart Rate (APMHR): 152 bpm Max HR Achieved: 96 bpm Target HR (85% APMHR): 129 bpm % of APMHR: 63 Recovery HR: 66 bpm BP Resting BP: 133.0/66.0 mmHg Max BP: 134.0/70.0 mmHg Recovery BP: 127.0/64.0 mmHg ECG Resting ECG: Sinus bradycardia Stress ECG: No significant ST changes Arrhythmia: PACs Clinical Exercise duration: 04:00 min Highest Stage Achieved: Stress ECG Conclusion Symptoms: SOA, dizzy, head discomfort. No CP. Arrhythmias/Ectopy: PAC. ST-T Changes: No significant ST changes Conclusion: Unremarkable Lexiscan stress. Myoview images reported separately. Test Summary REST . . . . . . . Resting REST 02:46 . . 60 . 133/ 66 . . Stage 1 01:00 . . 95 . . . . Stage 2 01:00 . . 94 . 134/ 70 . . Stage 3 01:00 . . 85 . 128/ 66 . . Stage 4 01:00 . . 78 . 120/ 70 . Stop exercise at 04:00 RECOVERY 01:00 . . 77 . . . . RECOVERY 02:00 . . 68 . 129/ 70 . . RECOVERY 03:00 . . 66 . 127/ 64 . . RECOVERY 03:17 . . 67 . 127/ 64 . . Electronically signed by : Natalie Bridges MD 12/31/2023 11:59:17
== END 2023-12-31 23:59 | disposition home or self-care (01) ==
PROVIDERS: PCP Nurse Practitioner Family; Visit Provider Physician Assistant
DX: I48.92 Unspecified atrial flutter (principal); R00.2 Palpitations; R42 Dizziness and giddiness; R53.83 Other fatigue; R94.31 Abnormal electrocardiogram [ECG] [EKG]
CPT/HCPCS: 78452; 93017; 93018; 93270; A9502; J2785

== ENCOUNTER 2024-01-26 08:46 | Day surgery (SDC) | payer MEDICARE, SELFPAY ==
[2024-01-26] VITALS (8 sets, daily range): BP systolic 97–117; BP diastolic 65–73; PULSE 54–65; RESP 16–20; TEMP 36.6–36.7; O2SAT 95–99; BMI 34.5
--- NOTE | 2024-01-26 06:54 | IR_ITS ---
APPROVED REPORT Patient Location: Outpatient Card Writer Hand: JE Solano RT (R) PROCEDURES Left heart catheterization Left ventriculogram Selective coronary angiogram INDICATION Angina pectoris, Abnormal Myoview, Informed consent was obtained prior to the procedure. COMPLICATIONS NONE Estimated Blood Loss: LESS THAN 10 ML TECHNIQUE One percent lidocaine used to anesthetize the right anterior aspect of the wrist. The right radial artery was accessed via the Seldinger technique. A 6 Ivorian sheath was placed in the right radial artery. 2.5 mg of Verapamil, 800 mcg of nitroglycerin, 1mg Lidocaine and 5000 U Heparin were given through the arterial sheath. The papa catheter was also used to perform left heart catheterization, left ventriculogram and selective coronary angiogram. At the end of the procedure the sheath was removed good hemostasis was achieved using Traclet band, patient was transferred to the postop holding area in stable condition. ANGIOGRAPHIC RESULTS The left main artery Normal The left anterior descending artery Mild proximal 10% luminal regularities The circumflex artery Mild 10% luminal irregularities The right coronary artery Mild 10% luminal irregularities The DALEY ventriculogram reveals Normal 65% The left ventricular end-diastolic pressure 15 to 20 mmHg IMPRESSION Mild 10% luminal regularities Normal ejection fraction Mildly elevated LVEDP PLAN 1. Medical management Electronically signed by : Nico Morrison MD 01/26/2024 12:55:39
[2024-01-26 10:08] LABS: Eosinophils # 0.1 K/mm3 (0.0-0.4); Eosinophils % 1.9 % (0.1-12.0); Hematocrit 42.9 % (37.0-47.0); Hemoglobin 13.3 g/dL (12.2-16.2); Lymphocytes # 2.1 K/mm3 (0.7-4.5); Lymphocytes % 45.5 % (10-50); Mean Corpuscular HGB Conc 30.9 g/dL (31.8-35.4); Mean Corpuscular Hemoglobin 30.3 pg (27.0-31.2); Mean Corpuscular Volume 98.1 fl (81-99); Mean Platelet Volume 8.2 fl (7.4-10.4); Monocytes # 0.3 K/mm3 (0.1-1.0); Monocytes % 7.4 % (1.7-9.3); Neutrophils % 44.3 % (37.0-80.0); Platelet Count 243 K/mm3 (142-424); Red Blood Count 4.37 M/mm3 (4.20-5.40); Red Cell Distribution Width 13.9 % (11.5-17.5); White Blood Count 4.6 K/mm3 (4.8-10.8)
[2024-01-26 10:47] LABS: Chloride 109 mmol/L (98-107); Potassium 3.9 mmoL/L (3.5-5.1); Sodium 140 mmol/L (136-145)
[2024-01-26 10:50] LABS: Anion Gap 6.9 mEq/L (5-15); Blood Urea Nitrogen 19 mg/dl (7-17); Carbon Dioxide 28 mmol/L (22.0-30.0); Creatinine Clearance Estimated 73 mL/min (50-200); Estimated Glomerular Filt Rate 62 ml/min (>60); GFR (African American) 75 ML/MIN (>60)
[2024-01-26 10:51] LABS: Calcium 8.7 mg/dl (8.4-10.2); Glucose 87 mg/dl (74-100)
[2024-01-26] MEDS: LIDOCAINE 1% 10ML MDV 20 ML IJ (11:46)
[2024-01-26] MEDS: NITROGLYCERIN 800MCG/8ML SYR (CATH LAB) 800 MCG IA (11:47)
[2024-01-26] MEDS: diphenhydrAMINE 50MG/ML VIAL 50 MG IV (11:47)
[2024-01-26] MEDS: HEPARIN 1,000 UNITS/ML 10ML VIAL (CATH LAB) 10000 UNIT IV (11:47)
[2024-01-26] MEDS: 0.9 % SODIUM CHLORIDE 500 ML 25 ML IV (11:48)
[2024-01-26] MEDS: MIDAZOLAM HCL 1MG/1ML 5ML VIAL 1 MG IV (11:48)
[2024-01-26] MEDS: HEPARIN 1,000 UNITS/500ML NS (CATH LAB) 3000 UNIT IV (11:48)
[2024-01-26] MEDS: FENTANYL 100MCG/2ML VIAL 50 MCG IV (11:48)
[2024-01-26] MEDS: VERAPAMIL 2.5MG/ML 2ML VIAL 2.5 MG IV (12:36)
[2024-01-26] MEDS: IOPAMIDOL-370 (76%);100ML BOTTLE 50 ML IV (13:30)
== END 2024-01-26 14:56 | disposition home or self-care (01) ==
PROVIDERS: PCP Nurse Practitioner Family; Visit Provider Internal Medicine
DX: R53.83 Other fatigue (principal); R42 Dizziness and giddiness; R00.2 Palpitations; I48.0 Paroxysmal atrial fibrillation; R94.39 Abnormal result of other cardiovascular function study; Z79.899 Other long term (current) drug therapy; I25.118 Atherosclerotic heart disease of native coronary artery with other forms of angina pectoris; Z79.01 Long term (current) use of anticoagulants
CPT/HCPCS: 80048; 85025; 93458; 99152; C1725; C1769; J1200; J1644; J2250; J3010; Q9967

== ENCOUNTER 2024-09-15 11:05 | Outpatient (CLI) | payer MEDICARE, SELFPAY ==
--- NOTE | 2024-09-15 11:11 | XR_ITS ---
FINAL REPORT CLINICAL HISTORY: RIGHT HAND PAIN FINDINGS: AP, lateral and oblique views of the right hand were obtained. There is no prior exam for comparison. There is no acute osseous abnormality. There is multijoint degenerative disease most pronounced at the first CMC joint and the DIP joints of the fingers. There is osteopenia. There is no acute soft tissue abnormality. IMPRESSION: No acute osseous abnormality of the right hand. Degenerative joint disease. Reviewed, Interpreted and Dictated by Lizzy Bynum MD Transcribed by Bia Newberry Authenticated and [facility]
== END 2024-09-15 23:59 | disposition home or self-care (01) ==
LOC: RAD 11:06
PROVIDERS: PCP Nurse Practitioner Family; Visit Provider Nurse Practitioner Family
DX: M79.641 Pain in right hand (principal)
CPT/HCPCS: 73130

== ENCOUNTER 2025-02-10 15:33 | Outpatient (CLI) | payer MEDICARE, SELFPAY ==
--- OUTSIDE RECORDS SUMMARY | 2025-02-10 15:35 | XMS_ITS | Encounter Summary ---
Author Organization [facility] Address [address] [place] [address] Care Team Providers Care Vamp Wetter Name Role Phone Malena Ramey APRN Primary Care Provid er Reason for Visit * Reason Onset Date Comments Med Refill 05/21/2024 Encounter Details Date Type Department Care Team (Late st Contact Info) Description 05/21/2024 Refill [facility] HEMATOLOGY & ONCOLOGY [address] [phone] Tash Anaya MD [address] [place] [address] Social History Tobacco Use Types Packs/Day Years Used Date Smoking Tobacco: Never Smokeless Tobacco: Never Alcohol Use Standard Drinks/Week Comments Never 0 (1 standard drink = 0.6 oz pur e alcohol) AUDIT-C Answer Date Recorded Frequency of Alcohol Consumption Never 08/02/2019 Average Number of Drinks Not on file 020 Frequency of Binge Drinking Not on file 07/2019 PHQ-2 Answer Date Recorded Retired PHQ-9: Brief Depression Severity Measure Score 1 06/19/2022 PHQ-2 Answer Date Recorded Retired PHQ-9: Brief Depression Severity Measure Score 0 09/08/2023 Comments Unknown Sex and Gender Information Value Date Recorded Sex Assigned at Not on file Legal Sex Female 1:43 PM EDT Gender Identity Not on file Sexual Orientation Not on file documented as of this encounter Plan of Treatment Upcoming Encounters Date Type Department Care Team (Late st Contact Info) Description 02/24/2025 10:15 AM EDT Office Visit [facility] HEMATOLOGY & [facility]COL[facility]Y [address] [facility] [address] [place] [address] Tash Anaay MD [address] [facility] [address] [place] [address] documented as of this encounter Visit Diagnoses Not on filedocumented in this encounter Care Teams Vamp Wetter Relationship Specialty Start Date End Date Malena Ramey APRN [address] [facility] [address] [place] [address] PCP - General Family Medicine 07/29/19 documented as of this encounter
--- OUTSIDE RECORDS SUMMARY | 2025-02-10 15:36 | XMS_ITS | Patient Health Record ---
Author Organization [facility] Address [address] [place] [address] [address] [place] [address] Care Team Providers Care Digital Design Engineer Name Role Phone Kelley Sethi Unavailable [phone] Reason For Referral No Information Social History Social History Sexual History: Social Info Question Answer Notes Sexual History Had sex in the past 12 months (vaginal, oral, or anal)? Yes Drugs/Alcohol: Social Info Question Answer Notes Drugs Have you used drugs other than those for medical reasons in the past 12 months? No Alcohol Screen Did you have a drink containing alcohol in the past year? Yes Points 0 Interpretation Negative Tobacco Use: Social Info Question Answer Notes Tobacco Use/Smoking Are you a former smoker Tobacco use other than smoking: Are you an other tobac co user? No Problems Problem Type SNOMED Code ICD Code Onset Dates Problem Status W/U Status Risk Notes Problem Cervical polyp (92853685) Cervical Polyp (N84.1) 2008 Active confirmed CERVICAL POLYP Problem Hormone replacement therapy (872968867) Counseling for estrogen replacement therapy (Z79.890) 2008 Active confirmed HORMONE REPLACEMENT THERAPY Problem Fatigue (14182422) Activity intolerance related to fatigue (R53.83) 2008 Active confirmed FATIGUE, ACUTE Problem Postmenopausal bleeding (84826023) Abnormal vaginal bleeding in postmenopausal patient (N95.0) 2008 Active confirmed POSTMENOPAUSAL BLEEDING Problem Adult health examination (629588836) Adult general medical exam (Z00.00) 2008 Active confirmed ANNUAL EXAM Plan Of Treatment No Information Medical (General) History Medical History History ICD Code yeast infections SOCIAL HX: non-smoker; denies use of zahraa gs and alcohol SOCIAL HX: non-smoker; denies use of zahraa gs and alcohol SYNTHROID 75 MCG ORAL TABLET MELOXICAM PROMETRIUM 200 MG ORAL CAPSULE ENJUVIA 0.9 MG ORAL TABLET Surgical History Surgery Date(Month/Year) back sx, gallbladder
--- OUTSIDE RECORDS SUMMARY | 2025-02-10 15:36 | XMS_ITS ---
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 Past Treatment and Therapy Plans ONCOLOGY TREATMENT Plan Name Start Date Discontinue Date Treatment Medications Discontinue Reason Plan Provider Cycles OP LYMPHOMA RiTUXimab (Weekly X 4) 06/20/2022 08/28/2022 No medications scheduled. Therapy Complete Tash Anaya MD 1 of 1 cycle started
--- OUTSIDE RECORDS SUMMARY | 2025-02-10 15:36 | XMS_ITS | Clinical Summary ---
Author Organization [facility] Address [address] [place] [address] Care Team Providers Care Heel Pricker Name Role Phone Malena Ramey APRN Primary Care Provid er Allergies No known active allergies Medications levothyroxine (SYNTHROID, LEVOTHROID) 88 MCG tablet Take 1 tablet by mouth Daily. Active melatonin 5 MG tablet tablet Take 2 tablets by mouth At Night As Needed. Active meloxicam (MOBIC) 7.5 MG tablet 3 Active diazePAM (VALIUM) 5 MG tablet TAKE 1 TABLET BY MOUTH ONCE BEFORE AND ONCE DURING PROCEDURE IF NEEDED FOR ANXIETY 1 DAYS 3 Active bisoprolol (ZEBeta) 5 MG tablet Take 0.5 tablets by mouth Daily. 4 Active valACYclovir (VALTREX) 500 MG tablet TAKE 1 TABLET BY MOUTH 2 TIMES A DAY. FOR 5 DAYS NEEDED FOR FEVER BLISTERS 10 tablet 3 4 Active Active Problems Problem Noted Date Diagnosed Date Follicular lymphoma grade I of intra-abdominal l ymph nodes 05/01/2022 Cancer Staging:Clinical stage from 05/22/2022:Stage III(Follicular lymphoma) - Signed by Tash Anaya MD on 05/22/2022 Glenohumeral arthritis, left 04/27/2021 Status post total shoulder arthroplasty, left Hypothyroidism (acquired) 04/27/2021 Lumbar stenosis with neurogenic claudication 09/2019 Family History Medical History Relation Name Comments Kidney disease Daughter 1 No Known Problems Daughter 2 Heart attack Father Kidney disease Father Stroke Father No Known Problems Mother No Known Problems Sister Other Son Extra valve in heart Relation Name Status Comments Daughter 1 Alive Daughter 2 Alive Father Mother Alive Sister Alive Son Alive Social History Tobacco Use Types Packs/Day Years Used Date Smoking Tobacco: Never Smokeless Tobacco: Never Tobacco Cessation:Counseling Given: Not Answered Alcohol Use Standard Drinks/Week Comments Never 0 (1 standard drink = 0.6 oz pur e alcohol) AUDIT-C Answer Date Recorded Frequency of Alcohol Consumption Never 08/02/2019 Average Number of Drinks Not on file 020 Frequency of Binge Drinking Not on file 07/2019 PHQ-2 Answer Date Recorded Retired PHQ-9: Brief Depression Severity Measure Score 1 06/19/2022 PHQ-2 Answer Date Recorded Patient Health Questionnaire-9 Score 0 08/26/2024 Comments Unknown Sex and Gender Information Value Date Recorded Sex Assigned at Not on file Legal Sex Female 1:43 PM EDT Gender Identity Not on file Sexual Orientation Not on file Last Filed Vital Signs Vital Sign Reading Time Taken Comments Blood Pressure 116/79 08/26/2024 9:38 AM EDT Pulse 65 08/26/2024 9:38 AM EDT Temperature 36.2 C (97.1 F) 08/26/2024 9:38 AM EDT Respiratory Rate 16 08/26/2024 9:38 AM EDT Oxygen Saturation 100% 08/26/2024 9:38 AM EDT Inhaled Oxygen Concentration - - Weight 88.9 kg (196 lb) 08/26/2024 9:38 AM EDT Height 153.7 cm (5' 0.51 ) 08/26/2024 9:38 AM ED T Body Mass Index 37.63 08/26/2024 9:38 AM EDT Plan of Treatment Upcoming Encounters Date Type Department Care Team (Late st Contact Info) Description 02/24/2025 10:15 AM EDT Office Visit [facility]OLOG[facility] & [facility] [address] [facility] [address] [place] [id number] Tash Anaya MD [address] [facility] [address] [place] [address] Health Maintenance Due Date Last Done Comments DXA SCAN 1955 Pneumococcal Vaccine 50+ (1 of 2 - PCV) 1974 TDAP/TD VACCINES (1 - Tdap) 1974 ZOSTER VACCINE (1 of 2) 1974 COLOGUARD 02/03/2000 COLON CANCER SCREENING 5 YEA R SIGMOIDOSCOPY 02/03/2000 COLONOSCOPY 02/03/2000 COLORECTAL CANCER SCREENING 02/03/2000 CT COLONOGRAPHY 02/03/2000 FECAL OCCULT BLOOD TEST 02/03/2000 FIT Testing (1 year) 02/03/2000 ANNUAL WELLNESS VISIT 08/02/2019 HEPATITIS C SCREENING 08/02/2019 MAMMOGRAM 05/09/2024 05/09/2022 COVID-19 Vaccine ( season) 01/31/202503/2022, 09/07/2020 INFLUENZA VACCINE 03/02/2025 Medical Devices Implanted Type Area Dance Artist Device Identifier Shelf Expiration Date Model / Serial / Lot Cmt Bone Simplex/P Full Dose 10/Pk - [id number] Implanted:Qt y: 1 on 04/27/2021 by Saul Bliss MD at [facility] Implant Left: Shoulder ROEL MICKIE 07/30/2022 [id number] / / [id number] Hemost Abs Surgicel 4x8in - [id number] Implanted:Qt y: 1 on 04/27/2021 by Saul Bliss MD at [facility] Implant Left: Shoulder ETHICON DIV OF J AND J 1951 / / Kt Sut Univers Vaiden No2fw - [id number] Implanted:Qt y: 1 on 04/27/2021 by Saul Bliss MD at [facility] Implant Left: Shoulder ARTHREX [id number] 09/29/2025 [id number] / / [id number] Stem Hum Univers Vaiden 7x60mm - [id number] Implanted:Qt y: 1 on 04/27/2021 by Saul Bliss MD at [facility] Implant Left: Shoulder ARTHREX [id number] 10/30/2024 [id number] / / [id number] José Antonio Cosme Sm - [id number] Implanted:Qt y: 1 on 04/27/2021 by Saul Bliss MD at [facility] Implant Left: Shoulder ARTHREX [id number] 12/30/2025 [id number] / / [id number] Hd Hum Univers2 Cocr 27i08em - [id number] Implanted:Qt y: 1 on 04/27/2021 by Saul Bliss MD at [facility] Implant Left: Shoulder ARTHREX [id number] 10/30/2025 [id number] / / [id number] Totl Arth Shldr S3 - [id number] Implanted:Qt y: 1 on 04/27/2021 by Saul Bliss MD at [facility] Implant Left: Shoulder ARTHREX CAPTOTLSEDGARDO [id number] X / / Procedures Procedure Name Priority Date/Time Associated Diagnosis Comments SCANNED - MAMMO 05/09/2022 from Last 3 Months or Most Recently Relevant to Health Maintenance Results * SCANNED - MAMMO (05/09/2022) Anatomical Region Laterality Modality Other Tash Anaya MD CHART REVIEW TABS Caitlin l Result from Last 3 Months or Most Recently Relevant to Health Maintenance Insurance Advance Directives * CPR (Attempt to Resuscitate) (Latest Code Status on File) Date Activated Date Inactivated Comments 04/27/2021 10:23 AM 04/27/2021 7:04 PM Question Answer Comments Code Status (Patient has no pulse and is not breathing): CPR (Attempt to Resuscitate) Medical Interventions (Patie nt has pulse or is breathing): Full Support Level Of Support Discussed With: Patient Care Teams Heel Pricker Relationship Specialty Start Date End Date Malena Ramey APRN [address] [facility] [address] [place] [id number] PCP - General Family Medicine 07/29/19
--- NOTE | 2025-02-10 15:37 | XR_ITS ---
FINAL REPORT CLINICAL HISTORY: acute traumatic pain FINDINGS: AP, lateral and oblique views of the left knee were obtained. There is no prior exam for comparison. There is no acute osseous abnormality of the left knee. There is degenerative joint disease, most pronounced in the patellofemoral joint. Small joint effusion is identified. The soft tissues are normal. IMPRESSION: Small joint effusion. Reviewed, Interpreted and Dictated by Lizzy Bynum MD Transcribed by Nandini Eubanks Authenticated and . [facility]
== END 2025-02-10 23:59 | disposition home or self-care (01) ==
LOC: RAD 15:34
PROVIDERS: PCP Nurse Practitioner Family; Visit Provider Nurse Practitioner Family
DX: M17.12 Unilateral primary osteoarthritis, left knee (principal); G89.11 Acute pain due to trauma
CPT/HCPCS: 73562

== ENCOUNTER 2025-04-12 06:32 | Day surgery (SDC) | payer MEDICARE, SELFPAY ==
[2025-04-06 13:31] VITALS: BMI 34.7
[2025-04-12 07:14] VITALS: BP 126/78; PULSE 62; RESP 16; TEMP 36.6; O2SAT 99
[2025-04-12] MEDS: PHENYLEPHRINE 2.5% OPHTH SOLN 2ML OP ×3 (07:19→07:21)
[2025-04-12] MEDS: TETRACAINE 0.5% OPTH SOL 15ML OP ×3 (07:19→07:20)
[2025-04-12] MEDS: CYCLOPENTOLATE 2% OPHTH SOLN 2ML BOTTLE OP ×3 (07:19→07:21)
[2025-04-12 07:40] VITALS: BP 142/72; PULSE 69; RESP 16; O2SAT 100
[2025-04-12 07:45] VITALS: BP 121/68; PULSE 65; RESP 16; O2SAT 100
[2025-04-12] MEDS: MIDAZOLAM 2MG/2ML VIAL 1 MG IV (07:45)
[2025-04-12] MEDS: TIMOLOL 0.5% OPTH SOLN 5ML OP (07:45)
[2025-04-12] MEDS: TOBRAMYCIN/DEX OPTH SUSP 2.5ML OP (07:46)
[2025-04-12] MEDS: LIDOCAINE 1% PF 2ML VIAL 2 ML IJ (07:46)
[2025-04-12 07:50] VITALS: BP 124/72; PULSE 64; RESP 16; O2SAT 100
[2025-04-12 07:55] VITALS: BP 117/64; PULSE 64; RESP 16; O2SAT 100
[2025-04-12 07:58] VITALS: BP 124/74; PULSE 60; RESP 18; O2SAT 100
--- NOTE | 2025-04-12 11:44 | P.PCN_ITS ---
[facility] Procedure Note Date: 04/12/25 Time: 11:44 Procedure Note:: Preoperative Diagnosis: Cataract combined NS Cortical Complex [Left] Eye Postop diagnosis: same Operation: Microscopic phacoemulsification with intraocular lens implant [Left] Eye Specimen: None Blood Loss: None The patient was examined in the office with a complaint of poor vision in the [left] eye. The patient reports that this interferes with ADLs such as reading, watching TV and/or driving or the vision is like looking through a foggy haze and is very troubling. The patient was examined and found to have a visually significant cataract with best corrected vision of [20/400] by refraction and/or glare testing. Treatment options, risks and benefits were explained and the patient elected to have cataract surgery in an attempt to improve their vision. The patient had the eye anesthetized with topical tetracaine, the eye ways prepped and draped in the usual fashion for cataract surgery. A paracentesis and a temporal keratotomy were made. 0.2cc of 1% lidocaine PF was placed into the anterior chamber. And aqueous/viscoelastic exchange was done and a 360 degree capsulorexis was performed. Through hydrodissection and delineation with BSS on a cannula was done. The lens nucleus was phecoemulsified with CDE of [6.15]. Residual cortical material was removed using automated I&A The capsular bag was deepened with viscoelastica and a PCIOL was placed in the capsular bag with good centration and stability. Residual viscoelastic was removed using automated I&A. The keratotomy incision was hydrated with BSS on a cannula. The wound were checked and found to be water tight. IOP was checked digitally and adjusted as needed so as not to be too high. 1 drop of timolol 0.5%, ofloxacin, prednisolone acetate and ketorolac was instilled and eye shield taped over the eye. The patient was taken to recovery in good condition and will be seen postoperatively.
== END 2025-04-12 08:10 | disposition home or self-care (01) ==
PROVIDERS: PCP Nurse Practitioner Family; Visit Provider Ophthalmology
DX: H25.812 Combined forms of age-related cataract, left eye (principal); H02.836 Dermatochalasis of left eye, unspecified eyelid; H02.833 Dermatochalasis of right eye, unspecified eyelid; I25.10 Atherosclerotic heart disease of native coronary artery without angina pectoris; I48.91 Unspecified atrial fibrillation; E03.9 Hypothyroidism, unspecified; Z85.828 Personal history of other malignant neoplasm of skin; Z96.642 Presence of left artificial hip joint; Z79.1 Long term (current) use of non-steroidal anti-inflammatories (NSAID); Z79.890 Hormone replacement therapy; Z79.899 Other long term (current) drug therapy
CPT/HCPCS: 66982; J2250; V2632

== ENCOUNTER 2025-04-14 14:30 | Outpatient (CLI) | payer MEDICARE, SELFPAY ==
--- OUTSIDE RECORDS SUMMARY | 2025-02-24 08:55 | XMS_ITS | Encounter Summary ---
Author Organization [facility] Address [address] [place] [address] Care Team Providers Care Patient Safety Attendant Name Role Phone Malena Ramey APRN Primary Care Provid er Encounter Details Date Type Department Care Team (Late st Contact Info) Description 02/24/2025 9:55 AM EDT Lab [facility] [address] [place] [phone] Follicular lymphoma grade I of intra-abdominal lymph nodes Social History Tobacco Use Types Packs/Day Years Used Date Smoking Tobacco: Never Smokeless Tobacco: Never Alcohol Use Standard Drinks/Week Comments Never 0 (1 standard drink = 0.6 oz pur e alcohol) AUDIT-C Answer Date Recorded Frequency of Alcohol Consumption Never 08/02/2019 Average Number of Drinks Not on file Frequency of Binge Drinking Not on file [...] Care Team (Late st Contact Info) Description 08/25/2025 10:15 AM EDT Office Visit [facility] HEMATOLOGY & ONCOLOGY [address] [facility] [address] [place] [address] Tash Anaya MD [address] [facility] [address] [place] [address] documented as of this encounter Procedures Procedure Name Priority Date/Time Associated Diagnosis Comments CBC WITH AUTO DIFFERENTIAL Routine 02/24/2025 9:54 AM EDT Follicular lymphoma grade I of intra-abdominal lymph nodes CBC AND DIFFERENTIAL Routine 02/24/2025 9:54 AM EDT Follicular lymphoma grade I of intra-abdominal lymph nodes LACTATE DEHYDROGENASE Routine 02/24/2025 9:54 AM EDT Follicular lymphoma grade I of intra-abdominal lymph nodes COMPREHENSIVE METABOLIC PANEL Routine 02/24/2025 9:54 AM EDT Follicular lymphoma grade I of intra-abdominal lymph nodes documented in this encounter Results * (ABNORMAL) CBC Auto Differential (02/24/2025 9:54 AM EDT) WBC 4.84 3.40 - 10.80 10*3/mm3 02/24/2025 9:56 AM EDT [facility] RBC 4.29 3.77 - 5.28 10*6/mm3 02/24/2025 9:56 AM EDT [facility] Hemoglobin 13.0 12.0 - 15.9 g/dL 02/24/2025 9:56 AM EDT [facility] Hematocrit 39.7 34.0 - 46.6 % 02/24/2025 9:56 AM EDT [facility] MCV 92.5 79.0 - 97.0 fL 02/24/2025 9:56 AM EDT [facility] MCH 30.3 26.6 - 33.0 pg 02/24/2025 9:56 AM EDT [facility] MCHC 32.7 31.5 - 35.7 g/dL 02/24/2025 9:56 AM EDT [facility] RDW 13.1 12.3 - 15.4 % 02/24/2025 9:56 AM [facility] RDW-SD 45.0 37.0 - 54.0 fl 02/24/2025 9:56 AM [facility] MPV 9.2 6.0 - 12.0 fL 02/24/2025 9:56 AM [facility] Platelets 219 140 - 450 10*3/mm3 02/24/2025 9:56 AM EDT [facility] Neutrophil % 38.4(L) 42.7 - 76.0 % 02/24/2025 9:56 [facility] Lymphocyte % 46.7(H) 19.6 - 45.3 % 02/24/2025 9:56 AM [facility] Monocyte % 10.7 5.0 - 12.0 % 02/24/2025 9:56 AM [facility] Eosinophil % 2.3 0.3 - 6.2 % 02/24/2025 9:56 AM [facility] Basophil % 1.7(H) 0.0 - 1.5 % 02/24/2025 9:56 AM [facility] Immature Grans % 0.2 0.0 - 0.5 % 02/24/2025 9:56 AM [facility] Neutrophils, Absolute 1.86 1.70 - 7.00 10*3/mm3 02/24/2025 9:56 AM [facility] Lymphocytes, Absolute 2.26 0.70 - 3.10 10*3/mm3 02/24/2025 9:56 AM [facility] Monocytes, Absolute 0.52 0.10 - 0.90 10*3/mm3 02/24/2025 9:56 AM [facility] Eosinophils, Absolute 0.11 0.00 - 0.40 10*3/mm3 02/24/2025 9:56 AM [facility] Basophils, Absolute 0.08 0.00 - 0.20 10*3/mm3 02/24/2025 9:56 AM EDT [facility] Immature Grans, Absolute 0.01 0.00 - 0.05 10*3/mm3 02/24/2025 9:56 AM EDT [facility] Blood Venipuncture / Unknown 02/24/2025 9:54 AM EDT 02/24/2025 9:54 AM EDT us Tash Anaya MD LAB BLOOD ORDERABLES Caitlin ruiz Result [facility]ATORY
[address] [place] [address], * (ABNORMAL) Comprehensive Metabolic Panel (02/24/2025 9:54 AM EDT) Glucose 75 65 - 99 mg/dL 02/24/2025 11:49 AM EDT [facility] LAB[facility] BUN 22.3 8.0 - 23.0 mg/dL 02/24/2025 11:49 AM EDT [facility] Creatinine 0.83 0.57 - 1.00 mg/dL 02/24/2025 11:49 AM EDT [facility] Sodium 140 136 - 145 mmol/L 02/24/2025 11:49 AM EDT [facility] Potassium 4.6 3.5 - 5.2 mmol/L 02/24/2025 11:49 AM EDT [facility] Chloride 105 98 - 107 mmol/L 02/24/2025 11:49 AM EDT [facility] CO2 24.7 22.0 - 29.0 mmol/L 02/24/2025 11:49 AM EDT [facility] Calcium 9.2 8.6 - 10.5 mg/dL 02/24/2025 11:49 AM EDT [facility] Total Protein 7.1 6.0 - 8.5 g/dL 02/24/2025 11:49 AM EDT [facility] Albumin 4.2 3.5 - 5.2 g/dL 02/24/2025 11:49 AM EDT [facility] ALT (SGPT) 14 1 - 33 U/L 02/24/2025 11:49 AM EDT [facility] AST (SGOT) 18 1 - 32 U/L 02/24/2025 11:49 AM T [facility] Alkaline Phosphatase 85 39 - 117 U/L 02/24/2025 11:49 AM EDT [facility] Total Bilirubin 0.4 0.0 - 1.2 mg/dL 02/24/2025 11:49 AM EDT [facility] Globulin 2.9 gm/dL 02/24/2025 11:49 AM T [facility] Comment:Calculated Result A/G Ratio 1.4 g/dL 02/24/2025 11:49 AM [facility] BUN/Creatinine Ratio 26.9(H) 7.0 - 25.0 02/24/2025 11:49 AM T [facility] LAB[facility] Anion Gap 10.3 5.0 - 15.0 mmol/L 02/24/2025 11:49 AM [facility] eGFR 75.9 >60.0 mL/min/1.7 3 02/24/2025 11:49 AM [facility] Blood Venipuncture / Unknown 02/24/2025 9:54 AM EDT 02/24/2025 9:54 AM EDT [facility] LABORATORY - 02/24/2025 11:49 AM EDT GFR Categories in Chronic Kidney Disease (CKD) GFR Category GFR (mL/min/1.73) Interpretation G1 90 or greater Normal or high (1) G2 60-89 Mild decrease (1) G3a 45-59 Mild to moderate decrease G3b 30-44 Moderate to severe decrease G4 15-29 Severe decrease G5 14 or less Kidney failure (1)In the absence of evidence of kidney disease, neither GFR category G1 or G2 fulfill the criteria for CKD. eGFR calculation 2020 CKD-EPI creatinine equation, which does not include race as a factor Tash Anaya MD LAB BLOOD ORDERABLES Caitlin l Result Performing Organization Address City/[facility]/ZIP Co de Phone Number PSYCHIATRIC LABORATORY
[address] [place] [address], * Lactate Dehydrogenase (02/24/2025 9:54 AM EDT) LDH 203 135 - 214 U/L 02/24/2025 11:49 AM EDT [facility] Blood Venipuncture / Unknown 02/24/2025 9:54 AM EDT 02/24/2025 9:54 AM EDT Tash Anaya MD LAB BLOOD ORDERABLES Caitlin l Result Performing Organization Address [facility] Co de Phone Number PSYCHIATRIC LABORATORY
[address] [place] [address], documented in this encounter Visit Diagnoses Diagnosis Follicular lymphoma grade I of intra-abdominal lymph nodes documented in this encounter Care Teams Patient Safety Attendant Relationship Specialty Start Date End Date Malena Ramey APRN [address] [facility] [address] [place] [address] PCP - General Family Medicine 07/29/19 documented as of this encounter
--- OUTSIDE RECORDS SUMMARY | 2025-02-24 09:15 | XMS_ITS | Encounter Summary ---
Author Organization [facility] Address [address] [place] [address] Care Team Providers Care Inspector Packer Name Role Phone Malena Ramey APRN Primary Care Provid er Encounter Details Date Type Department Care Team (Late st Contact Info) Description 02/24/2025 10:15 AM EDT Office Visit [facility] HEMATOLOGY & ONCOLOGY [address] [phone] Tash Anaya MD [address] [facility] [address] [place], [place] [id number] Follicular lymphoma grade I of intra-abdominal lymph nodes (Primary Dx) Social History Tobacco Use Types Packs/Day Years [...] on file documented as of this encounter Last Filed Vital Signs Vital Sign Reading Time Taken Comments Blood Pressure 128/67 02/24/2025 10:05 AM EDT KATHERINE E Pulse 54 02/24/2025 10:05 AM EDT Temperature 36.3 C (97.3 F) 02/24/2025 10:05 AM EDT Respiratory Rate 12 02/24/2025 10:05 AM EDT Oxygen Saturation 98% 02/24/2025 10:05 AM EDT RA Inhaled Oxygen Concentration - - Weight 89.4 kg (197 lb) 02/24/2025 10:05 AM EDT Height 153.7 cm (5' 0.5 ) 02/24/2025 10:05 AM ED T Body Mass Index 37.84 02/24/2025 10:05 AM EDT documented in this encounter Progress Notes * Tash Anaya MD - 02/24/2025 10:15 AM EDT PROBLEM LIST: Oncology/Hematology History Follicular lymphoma grade I of intra-abdominal lymph nodes 05/01/2022 Initial Diagnosis Follicular lymphoma grade I of intra-abdominal lymph nodes (HCC) 05/22/2022 Cancer Staged Staging form: Hodgkin And Non-Hodgkin Lymphoma, AJCC 8th Edition - Clinical stage from 05/22/2022: Stage III (Follicular lymphoma) - Signed by Tash Anaya MD on 05/22/2022 06/20/2022 - 07/11/2022 Chemotherapy OP LYMPHOMA RiTUXimab (Weekly X 4) REASON FOR VISIT: Follicular lymphoma HISTORY OF PRESENT ILLNESS: 70 y.o. female presents today for follow-up of her follicular lymphoma. She completed rituximab in early July 2022. Denies any issues with night sweats of fevers. No abdominal discomfort. She is considering a weight loss strategy with GLP-1 inhibitor. Past medical history, social history and family history was reviewed 02/24/25 and unchanged from prior visit. Review of Systems: Review of Systems Constitutional: Negative. HENT: Negative. Eyes: Negative. Respiratory: Negative. Gastrointestinal: Negative. Endocrine: Negative. Genitourinary: Negative. Musculoskeletal: Positive for arthralgias. Skin: Negative. Neurological: Negative. Hematological: Negative. Psychiatric/Behavioral: Negative. Medications: Current Outpatient Medications: bisoprolol (ZEBeta) 5 MG tablet, Take 0.5 tablets by mouth Daily., Disp: , Rfl: diazePAM (VALIUM) 5 MG tablet, TAKE 1 TABLET BY MOUTH ONCE BEFORE AND ONCE DURING PROCEDURE IF NEEDED FOR ANXIETY 1 DAYS, Disp: , Rfl: levothyroxine (SYNTHROID, LEVOTHROID) 88 MCG tablet, Take 1 tablet by mouth Daily., Disp: , Rfl: melatonin 5 MG tablet tablet, Take 2 tablets by mouth At Night As Needed., Disp: , Rfl: meloxicam (MOBIC) 7.5 MG tablet, , Disp: , Rfl: valACYclovir (VALTREX) 500 MG tablet, TAKE 1 TABLET BY MOUTH 2 TIMES A DAY. FOR 5 DAYS NEEDED FOR FEVER BLISTERS, Disp: 10 tablet, Rfl: 3 Pain Medications meloxicam (MOBIC) 7.5 MG tablet ALLERGIES: No Known Allergies Physical Exam VITAL SIGNS: BP 128/67 Comment: LUE Pulse 54 Temp 97.3 ??F (36.3 ??C) (Temporal) Resp 12 Ht 153.7 cm (60.5 ) Wt 89.4 kg (197 lb) SpO2 98% Comment: RA BMI 37.84 kg/m?? ECOG score: 0 Wt Readings from Last 3 Encounters: 02/24/25 89.4 kg (197 lb) 08/26/24 88.9 kg (196 lb) 03/08/24 88 kg (194 lb) Body mass index is 37.84 kg/m??. Body surface area is 1.87 meters squared. Performance Status: 1 General: well appearing, in no acute distress HEENT: sclera anicteric, neck is supple Extremities: no lower extremity edema Skin: no rashes, lesions, bruising, or petechiae Msk: Shows no weakness of the large muscle groups Psych: Mood is stable RECENT LABS: Lab Results Component Value Date HGB 13.0 02/24/2025 HCT 39.7 02/24/2025 MCV 92.5 02/24/2025 PLT 219 02/24/2025 WBC 4.84 02/24/2025 NEUTROABS 1.86 02/24/2025 LYMPHSABS 2.26 02/24/2025 MONOSABS 0.52 02/24/2025 EOSABS 0.11 02/24/2025 BASOSABS 0.08 02/24/2025 Lab Results Component Value Date GLUCOSE 72 08/26/2024 BUN 25 (H) 08/26/2024 CREATININE 0.99 08/26/2024 NA 142 08/26/2024 K 4.2 08/26/2024 CL 105 08/26/2024 CO2 25.0 08/26/2024 CALCIUM 9.6 08/26/2024 PROTEINTOT 7.4 08/26/2024 ALBUMIN 4.2 08/26/2024 BILITOT 0.3 08/26/2024 ALKPHOS 79 08/26/2024 AST 16 08/26/2024 ALT 11 08/26/2024 Lab Results Component Value Date FINALDX 04/02/2022 LYMPH NODE, PERIAORTIC RETROPERITONEAL, CORE NEEDLE BIOPSY WITH FLOW CYTOMETRY AND IMMUNOHISTOCHEMISTRY: Follicular lymphoma, favor low-grade in this biopsy specimen (see comment and microscopic description). Assessment/Plan 1. Stage III low-grade follicular lymphoma. Almost a complete resolution of all her lymphadenopathyafter rituximab. Her last scans look reasonable. Only scan again if she becomes symptomatic. I willrecheck her in 6 months. 2. Tachycardia. Negative heart cath. Patient is on beta-rafita at this time. 3. Obesity. Patient considering a weight loss strategy with a GLP-1 inhibitor. Total time of patient care on day of service including time prior to, face to face with patient, and following visit spent in reviewing records, lab results, imaging studies, discussion with patient,and documentation/charting was > 30 minutes. Tash Anaya MD [facility] Orders Placed This Encounter Procedures Comprehensive Metabolic Panel Lactate Dehydrogenase CBC & Differential 02/24/2025 documented in this encounter Plan of Treatment Upcoming Encounters Date Type Department Care Team (Late st Contact Info) Description 08/25/2025 10:15 AM EDT Office Visit [facility] HEMATOLOGY & ONCOLOGY [address] [facility] [address] [place] [phone] Tash Anaya MD [address] [facility] [address] [place] [address] Scheduled Orders Name Type Priority Associated Diagnoses Orde r Schedule CBC & Differential Lab Panel Routine Follicular lymphoma grade I of intra-abdominal lymph nodes Expected: 03/01/2025 (Approximate), Expires: 05/26/2026 Comprehensive Metabolic Panel Lab Routine Follicular lymphoma grade I of intra-abdominal lymph nodes Expected: 03/01/2025 (Approximate), Expires: 05/26/2026 Lactate Dehydrogenase Lab Routine Follicular lymphoma grade I of intra-abdominal lymph nodes Expected: 03/01/2025 (Approximate), Expires: 05/26/2026 documented as of this encounter Visit Diagnoses Diagnosis Follicular lymphoma grade I of intra-abdominal lymph nodes- Primary documented in this encounter Care Teams Inspector Packer Relationship Specialty Start Date End Date Malena Ramey APRN [address] [facility] [address] [facility] [address] PCP - General Family Medicine 07/29/19 documented as of this encounter
--- NOTE | 2025-04-14 14:33 | MM_ITS ---
PROCEDURE INFORMATION: Exam: MG Bilateral Screening 3D Mammography Exam date and time: 04/14/2025 2:43 PM Age: 70 years old Clinical indication: Screening examination TECHNIQUE: Imaging protocol: Bilateral Screening tomosynthesis and 2D mammography including computer-aided detection (CAD) when performed. COMPARISON: MG MM DIG SCREENING MAMM BI W/CAD 06/09/2023 4:10 PM FINDINGS: MAMMOGRAPHY: Breast composition: There are scattered areas of fibroglandular density. Mass: No suspicious masses. Architectural distortion: Small region of questioned architectural distortion/change in the inferior right breast at middle depth seen on MLO view only. Calcifications: No suspicious calcifications. Asymmetric density: None. Skin thickening: None. Axillary adenopathy: None. IMPRESSION: Small region of questioned architectural distortion/change in the right breast.Recommend right breast diagnostic mammogram including a spot compression view of the right breast in the MLO projection, full 90 degree lateral view of the right breast, and right breast ultrasound for further evaluation. ASSESSMENT: BI-RADS Category 0: Incomplete- Need Additional Imaging Evaluation.
--- OUTSIDE RECORDS SUMMARY | 2025-04-14 14:33 | XMS_ITS | Referral Summary ---
Author Organization [employer] ([place], [place], [place], [place], [place]) Address [address] [place] [address] Care Team Providers Care Coloring Room Man Name Role Phone Unavailable Primary Care Provider Unavailabl e Social History Tobacco Use Types Packs/Day Years Used Date Smoking Tobacco: Never Assessed Comments Unknown Sex and Gender Information Value Date Recorded Sex Assigned at Not on file Legal Sex Female 1:08 PM CDT Gender Identity Not on file Sexual Orientation Not on file Plan of Treatment Not on file
--- OUTSIDE RECORDS SUMMARY | 2025-04-14 14:33 | XMS_ITS | Encounter Summary ---
Author Organization [facility] Address [address] [place] [address] Care Team Providers Care Wireless Manager Name Role Phone Malena Ramey APRN Primary Care Provid er Encounter Details Date Type Department Care Team (Latest Contact Info) Description 02/24/2025 Travel Social History Tobacco Use Types Packs/Day Years [...] Description 08/25/2025 10:15 AM EDT Office Visit [facility] HEMATOLOGY & ONCOLOGY [address] [facility] [address] [place] [phone] Tash Anaya MD [address] [facility] [address] [place] [address] documented as of this encounter Visit Diagnoses Not on filedocumented in this encounter Care Teams Wireless Manager Relationship Specialty Start Date End Date Malena Ramey APRN [address] [place] [facility] [address] [facility] [address] [place] [address] PCP - General Family Medicine 07/29/19 documented as of this encounter
--- OUTSIDE RECORDS SUMMARY | 2025-04-14 14:33 | XMS_ITS | Data Portability ---
Author Organization [facility] Address [address] [facility] [address] [place] [address] Care Team Providers Care Waste Machine Offbearer Name Role Phone PATRICIA HERNANDEZ Clammer [phone] Assessment Encounter Date Assessment Date Assessment LastModified by Organization Details LastModified Time 10/01/2017 10/01/2017 PREOPERATIVE DIAGNOSIS: Microscopic hematuria, chronic cystitis. POSTOPERATIVE DIAGNOSIS: Urethral stenosis, chronic cystitis and microscopic hematuria, benign. PROCEDURE: Cystoscopy with urethral dilation. ANESTHESIA: General. DRAINS: None. SPECIMEN: None. SURGEON: Bryant Hoover M.D. BRIEF HISTORY: The patient is a 62-year-old female, history of persistent microscopic hematuria. Presents today for cystoscopy for further evaluation. Radiographs have been unremarkable. OPERATIVE NOTE: After satisfactory general anesthesia, she was carefully placed in the dorsal lithotomy position. Genitourinary area was prepped and draped in normal fashion. On exam, the external genitalia was unremarkable. A 22-Romansh cystoscope and sheath was introduced. The urethra was snug on this. The bladder was inspected with both 30 and 70 degree lenses. The trigone area especially near the bladder neck had significant squamous metaplasia. The ureteral orifices were situated in normal position with efflux of clear urine. They were not involved with the squamous metaplasia. Remainder of the bladder was inspected. It had prominent vasculature but no other abnormalities regarding the mucosa. Bladder was drained. Cystoscope removed. Xylocaine jelly was instilled in the urethra and the urethra was calibrated up to 28 Romansh with [place] sounds. The patient was awoken and extubated, transferred to postop recovery in stable condition. I placed her on doxycycline 100 mg b.i.d. for 2 weeks. She will follow up with me in 3 weeks. [email or web address] Not available 10/02/2017 09:35:34 Plan of Treatment Reminders Order Date Submit Date Provider Last Modified By Organization Details Last Modified Time Details Appointments None record ed. Lab None record ed. Referral None record ed. Procedures None record ed. Surgeries None record ed. Imaging None record ed. Medication Orders None record ed. Patient TargetsNo targets recorded. Patient InstructionsNo instructions recorded. Reason for Referral None Reported. Procedures Surgical History Date Name Laterality Status Provider Name and Address Organization Details Recorded Time 5 DAK - Cryo AK completed Prosper Tom [facility] 08/05/2024 13:47:52 4 DAK - Destruction BN Lesions completed Alfonso Greenwood [facility] 09/30/2023 14:32:02 Imaging Results None recorded. Procedure Notes None recorded. Medical Equipment None Reported. Allergies No known drug allergies Medications Name Sig Start Date Stop Date Status Note LastModified by Organization Details LastModified Time meloxicam 15 mg tablet active Not Available Not Available No t Available Synthroid 88 mcg tablet active Not Available Not Available N ot Available Vitals None Recorded Social History Question Answer Notes LastModified by Organizat ion Details LastModified Time Tobacco Smoking Status [facility]30[facility]23 14:17:48 What Was The Date Of Your Most Recent Tobacco Screening? 08/05/2024 [email or web address] Information not available 08/05/2024 Sex: Unknown Functional Status None recorded. Mental Status None recorded. Family History Relationship Description Onset Age of this Age Resolved Age Notes LastModified by Organization Details LastModified Time Father No current problems or disability [email or web address] Not available 09/02 14:17:43 Mother No current problems or disability [email or web address] Not available 09/02 14:17:43 Medical History Condition Response Basal Cell Carcinoma Gynecological HistoryNo gynecological history recorded. Obstetrics History GPAL:G 0 P 0 0 0 0 Past Encounters Encounter ID Performer Location Encounter Start Date Encounter Closed Date Diagnosis/Indication Diagnosis SNOMED-CT Code Diagnosis ICD10 Code Diagnosis IMO Codes Diagnosis Note [id number] BRYANT HOOVER MD SURGERY SCHEDULE [address] [place] [address] 10/01/2017 07:52:12 10/01/2017 07:58:30 [id number] PATRICIA ROLDAN MD [address] [phone] 09/30/2023 14:03:37 09/30/2023 14:42:59 Actinic keratosis 493093658 L57.0 Pt used 5FU in June. good responseAk s resolved History of malignant neoplasm of skin 115296345 Z85.828 L90.5 Scar(s) clear with no evidence recurrence . Continue to monitor for any changes. Multiple b enign melanocytic nevi 975276911 D22.5 D18.01 L81.4 L82.1 Benign appearing lesions.Re assurance given.Sun protection discussed with pt.Call with questions or concerns. Inflamed s eborrheic keratosis 192824302 L82.0 L29.9 Benign.Catarino l tx with LN2 since bothersome . [id number] LIZBETH VELA [address] [phone] 08/05/2024 13:12:53 08/05/2024 14:42:39 Multiple benign melanocytic nevi 363360144 L81.4 L82.1 Benign appearing lesions. Reassuranc e given. Sun protection discussed with pt. Call with questions or concerns. Actinic keratosis 007 L57.0 The nature of the diagnosis was explained. Pre-cancer ous.Will treat with LN2.F/u if treated lesions persist. History of malignant neoplasm of skin 060370936 Z85.828 The scar is clear with no evidence of recurrence .Cont to monitor for any changes. Pnt due after September 29 for full skin exam. Health Concerns Section Related Observation LastModified by Organization Detai ls LastModified Time None Recorded Concern Status LastModified by Organization Details LastModified Time None Recorded Advance Directives Directive None Recorded Payers Insurance Date Sequence Insurance Name Policy Number Policy Cornelius Covered Member ID Cornelius Member ID Guarantor Name 09/29/2023 1 [place] [id number] Bia Erwin [id number] Bia Erwin 08/09/2024 1 [employer] (MEDICARE REPLACEMENT/A DVANTAGE - PPO) Bia Erwin [id number] Bia Erwin Notes Date Note Type Note Provider Name and Address Organization Details Recorded Time 09/30/2023 text/html ROS as noted in the HPI spot check6 month examhx- [facility] - L templeI have spots on my legs PATRICIA ROLDAN MD [address] [place] [address], [phone], [facility] 09/30/2023 15:44:08 08/05/2024 text/html ROS as noted in the HPI Face exam hx- [facility] - L gnosticist reports: rough patches on face declined fbse LIZBETH VELA [address] [place] [address], [phone], [facility] 08/05/2024 13:54:13 OBGyn Episode No OBEpisode recorded.
--- OUTSIDE RECORDS SUMMARY | 2025-04-14 14:33 | XMS_ITS ---
Author Organization [facility] Address [address] [place] [address] Care Team Providers Care Mail Rider Name Role Phone Malena Ramey APRN Primary [...]
--- OUTSIDE RECORDS SUMMARY | 2025-04-14 14:33 | XMS_ITS | Encounter Summary ---
Author Organization [facility] Address [address] [place] [address] Care Team Providers Care Glass Forming Crew Member Name Role Phone Malena Ramey APRN Primary Care Provid er Reason for Visit * Reason Onset Date Comments Med Refill 05/21/2024 Encounter Details Date Type Department Care Team (Late st Contact Info) Description 05/21/2024 Refill [facility] HEMATOLOGY & ONCOLOGY [address] [phone] Tash Anaya MD [address] [place] [address] Social History Tobacco Use Types Packs/Day Years [...] Description 08/25/2025 10:15 AM EDT Office Visit [facility] HEMATOLOGY & ONCOLOGY [address] [facility] [address] [place] [address] Tash Anaya MD [address] [facility] [address] [place] [address] documented as of this encounter Visit Diagnoses Not on filedocumented in this encounter Care Teams Glass Forming Crew Member Relationship Specialty Start Date End Date Malena Ramey APRN [address] [facility] [address] [place] [address] PCP - General Family Medicine 07/29/19 documented as of this encounter
--- OUTSIDE RECORDS SUMMARY | 2025-04-14 14:33 | XMS_ITS | Clinical Summary ---
Author Organization [facility] Address [address] [place] [address] Care Team Providers Care Ortho Tech Name Role Phone Malena Ramey APRN Primary [...] 04/27/2021 Lumbar stenosis with neurogenic claudication 09/2019 Encounters Date Type Department Care Team Description 02/24/2025 10:15 AM EDT Office Visit [facility] HEMAT[facility] & [facility]COLOGY [address] [place] [phone] Tash Anaya MD Follicular lymphoma grade I of intra-abdominal lymph nodes (Primary Dx) 02/24/2025 9:55 AM EDT Lab [facility] [address] [place] [phone] Follicular lymphoma grade I of intra-abdominal lymph nodes 02/24/2025 Travel from Last 3 Months Family History Medical History Relation Name Comments [...] Mass Index 37.84 02/24/2025 10:05 AM EDT Plan of Treatment Upcoming Encounters Date Type Department Care Team (Late st Contact Info) Description 08/25/2025 10:15 AM EDT Office Visit [facility] & [facility]COLOGY [address] [phone] Tash Anaya MD [address] [address] Health Maintenance Due Date Last Done Comments [...] HEPATITIS C SCREENING 08/02/2019 MAMMOGRAM 05/09/2024 05/09/2022 INFLUENZA VACCINE 12/31/2024 COVID-19 Vaccine ( season) 01/31/202503/2022, 09/07/2020 Medical Devices Implanted Type Area Video Camera Operator Device Identifier Shelf Expiration Date Model / Serial / Lot Cmt Bone Simplex/P Full Dose 10/Pk - [id number] Implanted:Qt y: 1 on 04/27/2021 by Saul Bliss MD at [facility] Implant Left: Shoulder ROEL MICKIE 07/30/2022 [id number] / / [id number] Hemost Abs Surgicel 4x8in - [id number] Implanted:Qt y: 1 on 04/27/2021 by Saul Bliss MD at [facility] Implant Left: Shoulder ETHICON DIV OF J AND J 1951 / / Kt Sut Univers [place] No2fw - [id number] Implanted:Qt y: 1 on 04/27/2021 by Saul Bliss MD at [facility] Implant Left: Shoulder ARTHREX [id number] 09/29/2025 [id number] / / [id number] Stem Hum Univers [place] 7x60mm - [id number] Implanted:Qt y: 1 on 04/27/2021 by Saul Bliss MD at [facility] Implant Left: Shoulder ARTHREX [id number] 10/30/2024 [id number] / / [id number] José Antonio Vaultlock Sm - [id number] Implanted:Qt y: 1 on 04/27/2021 by Saul Bliss MD at [facility] Implant Left: Shoulder ARTHREX [id number] 12/30/2025 [id number] / / [id number] Hd Hum Univers2 Cocr 70n62wj - [id number] Implanted:Qt y: 1 on 04/27/2021 by Saul Bliss MD at [facility] Implant Left: Shoulder ARTHREX [id number] 10/30/2025 [id number] / / [id number] Totl Arth Shldr S3 - [id number] Implanted:Qt y: 1 on 04/27/2021 by Saul Bliss MD at [facility] Implant Left: Shoulder ARTHREX CAPTOTLSHL [id number] / / Procedures Procedure Name Priority Date/Time Associated Diagnosis Comments CBC AND DIFFERENTIAL Routine 02/24/2025 9:54 AM EDT Follicular lymphoma grade I of intra-abdominal lymph nodes CBC WITH AUTO DIFFERENTIAL Routine 02/24/2025 9:54 AM EDT Follicular lymphoma grade I of intra-abdominal lymph nodes COMPREHENSIVE METABOLIC PANEL Routine 02/24/2025 9:54 AM EDT Follicular lymphoma grade I of intra-abdominal lymph nodes LACTATE DEHYDROGENASE Routine 02/24/2025 9:54 AM EDT Follicular lymphoma grade I of intra-abdominal lymph nodes SCANNED - MAMMO 05/09/2022 from Last 3 Months or Most Recently Relevant to Health Maintenance Results * (ABNORMAL) CBC Auto Differential (02/24/2025 9:54 AM EDT) WBC 4.84 3.40 - 10.80 10*3/mm3 02/24/2025 9:56 AM EDT [facility] RBC 4.29 3.77 - 5.28 10*6/mm3 02/24/2025 9:56 AM EDT [facility] Hemoglobin 13.0 12.0 - 15.9 g/dL 02/24/2025 9:56 AM EDT [facility] Hematocrit 39.7 34.0 - 46.6 % 02/24/2025 9:56 AM EDT [facility] MCV 92.5 79.0 - 97.0 fL 02/24/2025 9:56 AM EDT [facility] MCH 30.3 26.6 - 33.0 pg 02/24/2025 9:56 AM EDT [facility] MCHC 32.7 31.5 - 35.7 g/dL 02/24/2025 9:56 AM EDT [facility] RDW 13.1 12.3 - 15.4 % 02/24/2025 9:56 AM EDT [facility] RDW-SD 45.0 37.0 - 54.0 fl 02/24/2025 9:56 AM EDT [facility] MPV 9.2 6.0 - 12.0 fL 02/24/2025 9:56 AM EDT [facility] Platelets 219 140 - 450 10*3/mm3 02/24/2025 9:56 AM EDT [facility] Neutrophil % 38.4(L) 42.7 - 76.0 % 02/24/2025 9:56 AM EDT [facility] Lymphocyte % 46.7(H) 19.6 - 45.3 % 02/24/2025 9:56 AM EDT [facility] Monocyte % 10.7 5.0 - 12.0 % 02/24/2025 9:56 AM EDT [facility] Eosinophil % 2.3 0.3 - 6.2 % 02/24/2025 9:56 AM EDT [facility] Basophil % 1.7(H) 0.0 - 1.5 % 02/24/2025 9:56 AM EDT [facility] Immature Grans % 0.2 0.0 - 0.5 % 02/24/2025 9:56 AM EDT [facility] Neutrophils, Absolute 1.86 1.70 - 7.00 10*3/mm3 02/24/2025 9:56 AM EDT [facility] Lymphocytes, Absolute 2.26 0.70 - 3.10 10*3/mm3 02/24/2025 9:56 AM EDT [facility] Monocytes, Absolute 0.52 0.10 - 0.90 10*3/mm3 02/[facility]25 [facility] Eosinophils, Absolute 0.11 0.00 - 0.40 10*3/mm3 02/24/2025 9:56 AM EDT [facility] Basophils, Absolute 0.08 0.00 - 0.20 10*3/mm3 02/24/2025 9:56 AM EDT [facility] Immature Grans, Absolute 0.01 0.00 - 0.05 10*3/mm3 02/24/2025 9:56 AM [facility] Blood Venipuncture / Unknown 02/24/2025 9:54 AM EDT 02/24/2025 9:54 AM EDT us Tash Anaya MD LAB BLOOD ORDERABLES Caitlin l Result [facility]
[address] [place] [address], * Lactate Dehydrogenase (02/24/2025 9:54 AM EDT) LDH 203 135 - 214 U/L 02/24/2025 11:49 AM EDT [facility] Blood Venipuncture / Unknown 02/24/2025 9:54 AM EDT 02/24/2025 9:54 AM EDT Tash Anaya MD LAB BLOOD ORDERABLES Caitlin l Result [facility]
[address] [place] [address], * (ABNORMAL) Comprehensive Metabolic Panel (02/24/2025 9:54 AM EDT) Glucose 75 65 - 99 mg/dL 02/24/2025 11:49 AM EDT [facility] BUN 22.3 8.0 - 23.0 mg/dL 02/24/2025 11:49 AM EDT [facility] Creatinine 0.83 0.57 - 1.00 mg/dL 02/24/2025 11:49 AM EDT [facility] Sodium 140 136 - 145 mmol/L 02/24/2025 11:49 AM EDT [facility] Potassium 4.6 3.5 - 5.2 mmol/L 02/24/2025 11:49 AM EDT [facility] Chloride 105 98 - 107 mmol/L 02/24/2025 11:49 AM EDT [facility] CO2 24.7 22.0 - 29.0 mmol/L 02/24/2025 11:49 AM EDT [facility] Calcium 9.2 8.6 - 10.5 mg/dL 02/24/2025 11:49 AM EDT [facility] Total Protein 7.1 6.0 - 8.5 g/dL 02/24/2025 11:49 AM EDT [facility] Albumin 4.2 3.5 - 5.2 g/dL 02/24/2025 11:49 AM EDT [facility] ALT (SGPT) 14 1 - 33 U/L 02/24[facility]2025 11:[facility] AST (SGOT) 18 1 - 32 U/L 02/24/2025 11:49 AM EDT [facility] Alkaline Phosphatase 85 39 - 117 U/L 02/24/2025 11:49 AM T [facility] Total Bilirubin 0.4 0.0 - 1.2 mg/dL 02/24/2025 11:49 AM EDT [facility] Globulin 2.9 gm/dL 02/24/2025 11:49 AM T [facility] Comment:Calculated Result A/G Ratio 1.4 g/dL 02/24/2025 11:49 AM [facility] BUN/Creatinine Ratio 26.9(H) 7.0 - 25.0 02/24/2025 11:49 AM T [facility] Anion Gap 10.3 5.0 - 15.0 mmol/L 02/24/2025 11:49 AM [facility] eGFR 75.9 >60.0 mL/min/1.7 3 02/24/2025 11:49 AM [facility] Blood Venipuncture / Unknown 02/24/2025 9:54 AM EDT 02/24/2025 9:54 AM T [facility] - 02/24/2025 11:49 AM EDT GFR [...] does not include race as a factor us Tash Anaya MD LAB BLOOD ORDERABLES Caitlin l Result [facility]
[address] [place] [address], * SCANNED - MAMMO (05/09/2022) Anatomical Region Laterality Modality Other Tash Anaya MD CHART REVIEW TABS Caitlin l Result from Last 3 Months or Most Recently Relevant to Health Maintenance Insurance [employer] PPO Advance Directives * CPR (Attempt to Resuscitate) (Latest Code Status on File) Date Activated Date Inactivated Comments 04/27/2021 10:23 AM 04/27/2021 7:04 PM Question Answer Comments Code Status (Patient has no pulse and is not breathing): CPR (Attempt to Resuscitate) Medical Interventions (Patie nt has pulse or is breathing): Full Support Level Of Support Discussed With: Patient Care Teams Ortho Tech Relationship Specialty Start Date End Date Malena Ramey APRN [address] [facility] [address] [place] [address] PCP - General Family Medicine 07/29/19
--- OUTSIDE RECORDS SUMMARY | 2025-04-14 14:33 | XMS_ITS | Patient Health Record ---
Author Organization [facility] Address [address] [place] [address] [address] [place] [address] Care Team Providers Care Branch Examiner Name Role Phone Kelley Sethi Unavailable [phone] Reason For Referral No Information Social History [...] W/U Status Risk Notes Problem Cervical polyp (22330956) Cervical Polyp (N84.1) 2008 Active confirmed CERVICAL POLYP Problem Hormone replacement therapy (410387524) Counseling for estrogen replacement therapy (Z79.890) 2008 Active confirmed HORMONE REPLACEMENT THERAPY Problem Fatigue (53369096) Activity intolerance related to fatigue (R53.83) 2008 Active confirmed FATIGUE, ACUTE Problem Postmenopausal bleeding (49600108) Abnormal vaginal bleeding in postmenopausal patient (N95.0) 2008 Active confirmed POSTMENOPAUSAL BLEEDING Problem Adult health examination (532716491) Adult general medical exam (Z00.00) 2008 Active [...]
--- OUTSIDE RECORDS SUMMARY | 2025-04-14 14:33 | XMS_ITS | Clinical Summary ---
Author Organization [employer] ([place], [place], [place], [place], [place]) Address [address] [place] [address] Care Team Providers Care Weigher Bulker Name Role Phone Unavailable Primary Care Provider Unavailabl e Social History Tobacco Use Types Packs/Day Years Used Date Smoking Tobacco: Never Assessed Comments Unknown Sex and Gender Information Value Date Recorded Sex Assigned at Not on file Legal Sex Female 1:08 PM CDT Gender Identity Not on file Sexual Orientation Not on file Plan of Treatment Health Maintenance Due Date Last Done Comments CT Colonography 1955 Colonoscopy 1955 Colorectal Cancer Screening 1955 DXA SCAN 1955 FOBT/FIT 1955 Fit-DNA (Cologuard) 1955 Sigmoidoscopy 1955 Depression Screening (12+) 1967 Tobacco Cessation Counseling and Screening (12+) 1967 Hepatitis C Screening 1973 DTAP/TDAP/TD VACCINES (1 - Tdap) 1974 Breast Cancer Screening 1995 Pneumococcal 50+ years (1 of 1 - PCV) 2005 Shingles Vaccine (Zoster) (1 of 2) 2005 Falls Risk Screening 06/02/2024 COVID-19 VACCINE (3 - 2024- season) 01/31/202503/2022, 09/07/2020 Influenza Vaccine (#1) 2025 Respiratory Syncytial Virus (RSV) Adult or (1 - 1-dose 75+ series) 2030
== END 2025-04-14 23:59 | disposition home or self-care (01) ==
LOC: RAD 14:31
PROVIDERS: PCP Nurse Practitioner Family; Visit Provider Nurse Practitioner Family
DX: Z12.31 Encounter for screening mammogram for malignant neoplasm of breast (principal); R92.323 Mammographic fibroglandular density, bilateral breasts; R92.8 Other abnormal and inconclusive findings on diagnostic imaging of breast
CPT/HCPCS: 77063; 77067

== ENCOUNTER 2025-05-05 08:40 | Outpatient (CLI) | payer MEDICARE, SELFPAY ==
--- NOTE | 2025-05-05 08:42 | XR_ITS ---
FINAL REPORT CLINICAL HISTORY: SCREENING COMPARISON: None FINDINGS: Using L1-4, the bone mineral density of the spine is 1.197 g/cm2, corresponding to T-score of 1.4, and a Z-score of 3.5. This is compatible with a normal exam, although this may be artificially elevated secondary to bony sclerosis. Using the right forearm, the bone mineral density of the mid is 0.457 g/cm2, corresponding to a T-score of -2.8, and a Z-score of -0.7. This is compatible with osteoporosis. Using the right hip, the bone mineral density of the femoral neck is 0.609 g/cm2, corresponding to a T-score of -2.2, and a Z-score of -0.4. The bone mineral density change versus baseline is -6.8%. This is compatible with osteopenia. NOTE: T-score: Standard deviation compared with peak bone mass of young adult mean. *Following the recommendations of the International Society of Bone densitometry, classification of hip BMD is based on the lower of two T-scores; total hip or femoral neck. IMPRESSION: 1. Diminished bone mineral density of the right forearm, compatible with osteoporosis. 2. Diminished bone mineral density of the right hip, compatible with osteopenia. 3. Normal bone mineral density of the lumbar spine, although this may be artificially elevated secondary to bony sclerosis. Reviewed, Interpreted and Dictated by Lizzy Bynum MD Transcribed by Darlin Hudson Authenticated and [facility]
--- OUTSIDE RECORDS SUMMARY | 2025-05-05 08:43 | XMS_ITS | Encounter Summary ---
Author Organization [facility] Address [address] [place] [address] Care Team Providers Care Mud Engineer Name Role Phone Malena Ramey APRN Primary Care Provid er Reason for Visit * Reason Onset Date Comments Med Refill 05/21/2024 Encounter Details Date Type Department Care Team (Late st Contact Info) Description 05/21/2024 Refill [facility] HEMATOLOGY & ONCOLOGY [address] [phone] Tash Anaya MD [address] [place] [address] Social History Tobacco Use Types Packs/Day Years [...] Description 08/25/2025 10:15 AM EDT Office Visit [facility]AT[facility] & [facility]Y [address] [facility] [address] [place] [address] Tash Anaya MD [address] [facility] [address] [place] [address] documented as of this encounter Visit Diagnoses Not on filedocumented in this encounter Care Teams Mud Engineer Relationship Specialty Start Date End Date Malena Ramey APRN [address] [facility] [address] [place] [address] PCP - General Family Medicine 07/29/19 documented as of this encounter
--- OUTSIDE RECORDS SUMMARY | 2025-05-05 08:44 | XMS_ITS | Patient Health Record ---
Author Organization [facility] Address [address] [place] [address] [address] [place] [address] Care Team Providers Care Carburetor Mechanic Name Role Phone Kelley Sethi Unavailable [phone] Reason For Referral No Information Social History [...] Problem Status W/U Status Risk Notes Problem Adult health examination (723494590) Adult general medical exam (Z00.00) 2008 Active confirmed ANNUAL EXAM Problem Postmenopausal bleeding (30072837) Abnormal vaginal bleeding in postmenopausal patient (N95.0) 2008 Active confirmed POSTMENOPAUSAL BLEEDING Problem Fatigue (60800148) Activity intolerance related to fatigue (R53.83) 2008 Active confirmed FATIGUE, ACUTE Problem Hormone replacement therapy (234817173) Counseling for estrogen replacement therapy (Z79.890) 2008 Active confirmed HORMONE REPLACEMENT THERAPY Problem Cervical polyp (16090933) Cervical Polyp (N84.1) 2008 Active confirmed CERVICAL POLYP Plan Of Treatment No Information Medical (General) [...]
--- OUTSIDE RECORDS SUMMARY | 2025-05-05 08:45 | XMS_ITS | Clinical Summary ---
Author Organization [facility] Address [address] [place] [address] Care Team Providers Care Agricultural Engineering Teacher Name Role Phone Malena Ramey APRN Primary [...] Description 02/24/2025 10:15 AM EDT Office Visit [facility] & [facility]Y [address] [place] [phone] Tash Anaya MD Follicular lymphoma grade I of intra-abdominal lymph nodes (Primary Dx) 02/24/2025 9:55 AM EDT Lab [facility] [address] [place] [phone] Follicular lymphoma grade I of intra-abdominal lymph [...] Description 08/25/2025 10:15 AM EDT Office Visit [facility] ONCOLOGY [address] [phone] Tash Anaya MD [address] [address] Health Maintenance Due Date Last Done Comments [...] 01/31/202503/2022, 09/07/2020 Medical Devices Implanted Type Area Quarry Plant Crusher Operator Device Identifier Shelf Expiration Date Model / Serial / Lot Cmt Bone Simplex/P Full Dose 10/Pk - [id number] Implanted:Qt y: 1 on 04/27/2021 by Saul Bliss MD at [facility] Implant Left: Shoulder ROEL MICKIE 07/30/2022 [id number] / / [id number] Hemost Abs Surgicel 4x8in - [id number] Implanted:Qt y: 1 on 04/27/2021 by Saul Bliss MD at [facility] Implant Left: Shoulder ETHICON DIV [employer] J AND J 1951 / / Kt Sut Univers [place] No2fw - [id number] Implanted:Qt y: 1 on 04/27/2021 by Saul Bliss MD at [facility] Implant Left: Shoulder ARTHREX [id number] 09/29/2025 [id number] / / [id number] Stem Hum Univers [place] 7x60mm - [id number] Implanted:Qt y: 1 on 04/27/2021 by Saul Bliss MD at [facility] Implant Left: Shoulder ARTHREX [id number] 10/30/2024 [id number] / / [id number] José Antonio Vaultlock Sm - [id number] Implanted:Qt y: 1 on 04/27/2021 by Saul Bliss MD at [facility] Implant Left: Shoulder ARTHREX [id number] 12/30/2025 [id number] / / [id number] Hd Hum Univers2 Cocr 94r64yp - [id number] Implanted:Qt y: 1 on 04/27/2021 by Saul Bliss MD at [facility] Implant Left: Shoulder ARTHREX [id number] 10/30/2025 [id number] / / [id number] Totl Arth Shldr S3 - [id number] Implanted:Qt y: 1 on 04/27/2021 by Saul Bliss MD at [facility] Implant Left: Shoulder ARTHREX CAPTOTLSHL [id number] / / Procedures Procedure Name Priority [...] - 10.80 10*3/mm3 02/24/2025 9:56 AM EDT [facility] RBC 4.29 3.77 - 5.28 10*6/mm3 02/24/2025 9:56 AM EDT [facility] Hemoglobin 13.0 12.0 - 15.9 g/dL 02/24/2025 9:56 AM EDT [facility] Hematocrit 39.7 34.0 - 46.6 % 02/24/2025 9:56 AM EDT [facility] MCV 92.5 79.0 - 97.0 fL 02/24/2025 9:56 AM EDT [facility] MCH 30.3 26.6 - 33.0 pg 02/24/2025 9:56 AM EDT [facility] MCHC 32.7 31.5 - 35.7 g/dL 02/24/2025 9:56 AM EDT [facility] RDW 13.1 12.3 - 15.4 % 02/24/2025 9:56 AM EDT [facility] RDW-SD 45.0 37.0 - 54.0 fl 02/24/2025 9:56 AM EDT [facility] MPV 9.2 6.0 - 12.0 fL 02/24/2025 9:56 AM EDT [facility] Platelets 219 140 - 450 10*3/mm3 02/24/2025 9:56 AM EDT [facility] Neutrophil % 38.4(L) 42.7 - 76.0 % 02/24/2025 9:56 AM EDT [facility] Lymphocyte % 46.7(H) 19.6 - 45.3 % 02/24/2025 9:56 AM EDT [facility] Monocyte % 10.7 5.0 - 12.0 % 02/24/2025 9:56 AM EDT [facility] Eosinophil % 2.3 0.3 - 6.2 % 02/24/2025 9:56 AM EDT [facility] Basophil % 1.7(H) 0.0 - 1.5 % 02/24/2025 9:56 AM EDT [facility] Immature Grans % 0.2 0.0 - 0.5 % 02/24/2025 9:56 AM EDT [facility] Neutrophils, Absolute 1.86 1.70 - 7.00 10*3/mm3 02/24/2025 9:56 AM EDT [facility] Lymphocytes, Absolute 2.26 0.70 - 3.10 10*3/mm3 02/24/2025 9:56 AM EDT [facility] Monocytes, Absolute 0.52 0.10 - 0.90 10*3/mm3 02/24/2025 9:56 [facility] Eosinophils, Absolute 0.11 0.00 - 0.40 10*3/mm3 02/24/2025 9:56 AM EDT [facility] Basophils, Absolute 0.08 0.00 - 0.20 10*3/mm3 02/24/2025 9:56 AM EDT [facility] Immature Grans, Absolute 0.01 0.00 - 0.05 10*3/mm3 02/24/2025 9:56 AM [facility] Blood Venipuncture / Unknown 02/24/2025 9:54 AM EDT 02/24/2025 9:54 AM EDT us Tash Anaya MD LAB BLOOD ORDERABLES Caitlin l Result [facility]
[address] [place] [address], * Lactate Dehydrogenase (02/24/2025 9:54 AM EDT) LDH 203 135 - 214 U/L 02/24/2025 11:49 AM EDT [facility] Blood Venipuncture / Unknown 02/24/2025 9:54 AM EDT 02/24/2025 9:54 AM EDT Tash Anaya MD LAB BLOOD ORDERABLES Caitlin l Result [facility]
[address] [place] [address], * (ABNORMAL) Comprehensive Metabolic Panel (02/24/2025 9:54 AM EDT) Glucose 75 65 - 99 mg/dL 02/24/2025 11:49 AM EDT [facility] BUN 22.3 8.0 - 23.0 mg/dL 02/24/2025 11:49 AM EDT [facility] Creatinine 0.83 0.57 - 1.00 mg/dL 02/24/2025 11:49 AM EDT [facility] Sodium 140 136 - 145 mmol/L 02/24/2025 11:49 AM EDT [facility] Potassium 4.6 3.5 - 5.2 mmol/L 02/24/2025 11:49 AM EDT [facility] Chloride 105 98 - 107 mmol/L 02/24/2025 11:49 AM EDT [facility] CO2 24.7 22.0 - 29.0 mmol/L 02/24/2025 11:49 AM EDT [facility] Calcium 9.2 8.6 - 10.5 mg/dL 02/24/2025 11:49 AM EDT [facility] Total Protein 7.1 6.0 - 8.5 g/dL 02/24/2025 11:49 AM EDT [facility] Albumin 4.2 3.5 - 5.2 g/dL 02/24/2025 11:49 AM EDT [facility] ALT (SGPT) 14 1 - 33 U/L 02/24/2025 11:49 [facility] AST (SGOT) 18 1 - 32 U/L 02/24/2025 11:49 AM EDT [facility] Alkaline Phosphatase 85 39 - 117 U/L 02/24/2025 11:49 AM T [facility] Total Bilirubin 0.4 0.0 - 1.2 mg/dL 02/24/2025 11:49 AM EDT [facility] Globulin 2.9 gm/dL 02/24/2025 11:49 AM T [facility] Comment:Calculated Result A/G Ratio 1.4 g/dL 02/24/2025 11:49 AM [facility] BUN/Creatinine Ratio 26.9(H) 7.0 - 25.0 02/24/2025 11:49 AM T [facility] Anion Gap 10.3 5.0 - 15.0 mmol/L 02/24/2025 11:49 AM [facility] eGFR 75.9 >60.0 mL/min/1.7 3 02/24/2025 11:49 AM [facility] Blood Venipuncture / Unknown 02/24/2025 9:54 AM EDT 02/24/2025 9:54 AM T [facility] - 02/24/2025 11:49 AM [...] MD LAB BLOOD ORDERABLES Caitlin l Result [facility]
[address] [place] [address], * SCANNED - MAMMO (05/09/2022) Anatomical Region [...] Of Support Discussed With: Patient Care Teams Agricultural Engineering Teacher Relationship Specialty Start Date End Date Malena Ramey APRN [address] [facility] [address] [place] [address] PCP - General Family Medicine 07/29/19
--- OUTSIDE RECORDS SUMMARY | 2025-05-05 08:45 | XMS_ITS | Clinical Summary ---
Author Organization [employer] ([place], [place], [place], [place], [place]) Address [address] [place] [address] Care Team Providers Care Store Custodian Name Role Phone Unavailable Primary Care Provider [...]
--- OUTSIDE RECORDS SUMMARY | 2025-05-05 08:45 | XMS_ITS ---
Author Organization [facility] Address [address] [place] [address] Care Team Providers Care Spray Cementer Name Role Phone Malena Ramey APRN Primary [...]
== END 2025-05-05 23:59 | disposition home or self-care (01) ==
LOC: RAD 08:41
PROVIDERS: PCP Nurse Practitioner Family; Visit Provider Nurse Practitioner Family
DX: Z13.820 Encounter for screening for osteoporosis (principal); Z78.0 Asymptomatic menopausal state; M81.0 Age-related osteoporosis without current pathological fracture
CPT/HCPCS: 77080

== ENCOUNTER 2025-05-10 06:23 | Day surgery (SDC) | payer MEDICARE, SELFPAY ==
[2025-05-05 14:16] VITALS: BMI 36.2
[2025-05-10] VITALS (7 sets, daily range): BP systolic 127–141; BP diastolic 72–89; PULSE 60; RESP 16–18; TEMP 36.4; O2SAT 98–100
[2025-05-10] MEDS: CYCLOPENTOLATE 2% OPHTH SOLN 2ML BOTTLE OP ×3 (06:39→06:42)
[2025-05-10] MEDS: TETRACAINE 0.5% OPTH SOL 15ML OP ×3 (06:39→06:42)
[2025-05-10] MEDS: PHENYLEPHRINE 2.5% OPHTH SOLN 2ML OP ×3 (06:39→06:42)
[2025-05-10] MEDS: MIDAZOLAM 2MG/2ML VIAL 1 MG IV (08:23)
[2025-05-10] MEDS: TOBRAMYCIN/DEX OPTH SUSP 2.5ML OP (08:24)
[2025-05-10] MEDS: TIMOLOL 0.5% OPTH SOLN 5ML OP (08:24)
[2025-05-10] MEDS: LIDOCAINE 1% PF 2ML VIAL 2 ML IJ (08:25)
--- NOTE | 2025-05-10 13:08 | P.PCN_ITS ---
[facility] Procedure Note Date: 05/10/25 Time: 13:09 Procedure Note:: Preoperative Diagnosis: Cataract combined NS Cortical Complex [Right] Eye Postop diagnosis: same Operation: Microscopic phacoemulsification with intraocular lens implant [Right] Eye Specimen: None Blood Loss: None The patient was examined in the office with a complaint of poor vision in the [right] eye. The patient reports that this interferes with ADLs such as reading, watching TV and/or driving or the vision is like looking through a foggy haze and is very troubling. The patient was examined and found to have a visually significant cataract with best corrected vision of [20/400] by refraction and/or glare testing. Treatment options, risks and benefits were explained and the patient elected to have cataract surgery in an attempt to improve their vision. The patient had the eye anesthetized with topical tetracaine, the eye ways prepped and draped in the usual fashion for cataract surgery. A paracentesis and a temporal keratotomy were made. 0.2cc of 1% lidocaine PF was placed into the anterior chamber. And aqueous/viscoelastic exchange was done and a 360 degree capsulorexis was performed. Through hydrodissection and delineation with BSS on a cannula was done. The lens nucleus was phecoemulsified with CDE of [5.48]. Residual cortical material was removed using automated I&A The capsular bag was deepened with viscoelastica and a PCIOL was placed in the capsular bag with good centration and stability. Residual viscoelastic was removed using automated I&A. The keratotomy incision was hydrated with BSS on a cannula. The wound were checked and found to be water tight. IOP was checked digitally and adjusted as needed so as not to be too high. 1 drop of timolol 0.5%, ofloxacin, prednisolone acetate and ketorolac was instilled and eye shield taped over the eye. The patient was taken to recovery in good condition and will be seen postoperatively.
== END 2025-05-10 09:01 | disposition home or self-care (01) ==
PROVIDERS: PCP Nurse Practitioner Family; Visit Provider Ophthalmology
DX: H25.811 Combined forms of age-related cataract, right eye (principal); I25.10 Atherosclerotic heart disease of native coronary artery without angina pectoris; E03.9 Hypothyroidism, unspecified; M19.90 Unspecified osteoarthritis, unspecified site; Z90.49 Acquired absence of other specified parts of digestive tract; Z96.642 Presence of left artificial hip joint; Z79.899 Other long term (current) drug therapy; Z79.890 Hormone replacement therapy; I48.91 Unspecified atrial fibrillation
CPT/HCPCS: 66984; J2250; V2632

== ENCOUNTER 2025-05-24 14:13 | Outpatient (CLI) | payer MEDICARE, SELFPAY ==
--- NOTE | 2025-05-24 14:15 | MM_ITS ---
PROCEDURE INFORMATION: Exam: US Right Breast, Complete MG Right Diagnostic Breast Tomosynthesis Exam date and time: 05/24/2025 2:49 PM Age: 70 years old Clinical indication: Patient recalled on the basis of a screening mammogram for further evaluation; Right breast; questionable distortion TECHNIQUE: Imaging protocol: Complete ultrasound of all four quadrants of the right breast and the retroareolar regions, including ultrasound of the axilla when performed. Right Diagnostic tomosynthesis and 2D mammography including computer-aided detection (CAD) when performed. Unilateral or bilateral exam. COMPARISON: MG MM DIG MAMM DX UNILAT RT CAD 05/24/2025 2:19 PM FINDINGS: MAMMOGRAPHY: Breast composition: There are scattered areas of fibroglandular density. Breast mammogram findings: Digital diagnostic spot compression views of the right breast and 90 degree lateral view of the right breast demonstrate normal overlapping fibroglandular structures without persistent mass or asymmetry identified. ULTRASOUND: Breast ultrasound findings: Sonographic images of the right breast including the retroareolar region, all 4 quadrants and the axilla do not demonstrate any solid or cystic masses. No architectural distortion or acoustical shadowing. No skin thickening or axillary adenopathy. IMPRESSION: No mammographic or sonographic evidence of malignancy. Annual bilateral mammographic screening is recommended unless otherwise clinically indicated. ASSESSMENT: BI-RADS Category 1: Negative.
--- OUTSIDE RECORDS SUMMARY | 2025-05-24 14:17 | XMS_ITS | Referral Summary ---
Author Organization [employer] ([place], [place], [place], [place], [place]) Address [address] [place] [address] Care Team Providers Care Circulation Supervisor Name Role Phone Unavailable Primary Care Provider [...]
--- OUTSIDE RECORDS SUMMARY | 2025-05-24 14:17 | XMS_ITS | Encounter Summary ---
Author Organization [facility] Address [address] [place] [address] Care Team Providers Care Otolaryngology Surgeon Name Role Phone Malena Ramey APRN Primary Care Provid er Reason for Visit * Reason Onset Date Comments Med Refill 05/21/2024 Encounter Details Date Type Department Care Team (Late st Contact Info) Description 05/21/[address] [facility] [address] [phone] Tash Anaya MD [address] [place] [address] Social History Tobacco Use Types Packs/Day Years [...] Description 08/25/2025 10:15 AM EDT Office Visit [facility] [address] [facility] [address] [place] [address] Tash Anaya MD [address] [facility] [address] [place] [address] documented as of this encounter Visit Diagnoses Not on filedocumented in this encounter Care Teams Otolaryngology Surgeon Relationship Specialty Start Date End Date Malena Ramey APRN [address] [facility] [address] [place] [address] PCP - General Family Medicine 07/29/19 documented as of this encounter
--- OUTSIDE RECORDS SUMMARY | 2025-05-24 14:17 | XMS_ITS | Patient Health Record ---
Author Organization [facility] Address [address] [place] [address] [address] [place] [address] Care Team Providers Care Tool And Die Machinist Name Role Phone Kelley Sethi Unavailable [phone] Reason For Referral No Information Social History [...] W/U Status Risk Notes Problem Cervical polyp (03398369) Cervical Polyp (N84.1) 2008 Active confirmed CERVICAL POLYP Problem Hormone replacement therapy (691176851) Counseling for estrogen replacement therapy (Z79.890) 2008 Active confirmed HORMONE REPLACEMENT THERAPY Problem Fatigue (42041603) Activity intolerance related to fatigue (R53.83) 2008 Active confirmed FATIGUE, ACUTE Problem Postmenopausal bleeding (42614429) Abnormal vaginal bleeding in postmenopausal patient (N95.0) 2008 Active confirmed POSTMENOPAUSAL BLEEDING Problem Adult health examination (674315799) Adult general medical exam (Z00.00) 2008 Active [...]
--- OUTSIDE RECORDS SUMMARY | 2025-05-24 14:18 | XMS_ITS ---
Author Organization [facility] Address [address] [place] [address] Care Team Providers Care Wellness Educator Name Role Phone Malena Ramey APRN Primary [...]
--- OUTSIDE RECORDS SUMMARY | 2025-05-24 14:18 | XMS_ITS | Clinical Summary ---
Author Organization [employer] ([place], [place], [place], [place], [place]) Address [address] [place] [address] Care Team Providers Care Optical Goods Worker Name Role Phone Unavailable Primary Care Provider [...]
--- OUTSIDE RECORDS SUMMARY | 2025-05-24 14:18 | XMS_ITS | Clinical Summary ---
Author Organization [facility] Address [address] [place] [address] Care Team Providers Care Campus Administrator Name Role Phone Malena Ramey APRN Primary [...] Description 02/24/2025 10:15 AM EDT Office Visit [facility] & ON[facility]Y [address] [place] [phone] Tash Anaya MD Follicular lymphoma grade I of intra-abdominal lymph nodes (Primary Dx) 02/24/2025 9:55 AM EDT Lab [facility] [address] [place] [phone] Follicular lymphoma grade I of intra-abdominal lymph [...] Description 08/25/2025 10:15 AM EDT Office Visit [facility] [address] [phone] Tash Anaya MD [address] [address] Health Maintenance Due Date Last Done Comments [...] 01/31/202503/2022, 09/07/2020 Medical Devices Implanted Type [employer] Director Device Identifier Shelf Expiration Date Model / Serial / Lot Cmt Bone Simplex/P Full Dose 10/Pk - [id number] Implanted:Qt y: 1 on 04/27/2021 by Saul Bliss MD at [facility] Implant Left: Shoulder ROEL MICKIE 07/30/2022 [id number] / / [id number] Hemost Abs Surgicel 4x8in - [id number] Implanted:Qt y: 1 on 04/27/2021 by Saul Bliss MD at [facility] Implant Left: Shoulder [employer] J [employer] J 1951 / / Kt Sut Univers [place] No2fw - [id number] Implanted:Qt y: 1 on 04/27/2021 by Saul Bliss MD at [facility] Implant Left: Shoulder ARTHREX [id number] 09/29/2025 [id number] / / [id number] Stem Hum Univers [place] 7x60mm - [id number] Implanted:Qt y: 1 on 04/27/2021 by Saul Bliss MD at [facility] Implant Left: Shoulder ARTHREX [id number] 10/30/2024 [id number] / / [id number] José Antonio Vaultlock Sm - [id number] Implanted:Qt y: 1 on 04/27/2021 by Saul Bliss MD at [facility] Implant Left: Shoulder ARTHREX [id number] 12/30/2025 [id number] / / [id number] Hd Hum Univers2 Cocr 91l05ti - [id number] Implanted:Qt y: 1 on 04/27/2021 by Saul Bliss MD at [facility] Implant Left: Shoulder ARTHREX [id number] 10/30/2025 [id number] / / [id number] Totl Arth Shldr S3 - [id number] Implanted:Qt y: 1 on 04/27/2021 by Saul Bliss MD at [facility] Implant Left: Shoulder ARTHREX CAPTOTLSHL [id number] / / Procedures Procedure Name Priority [...] - 10.80 10*3/mm3 02/24/2025 9:56 AM EDT [facility] RBC 4.29 3.77 - 5.28 10*6/mm3 02/24/2025 9:56 AM EDT [facility] Hemoglobin 13.0 12.0 - 15.9 g/dL 02/24/2025 9:56 AM EDT [facility] Hematocrit 39.7 34.0 - 46.6 % 02/24/2025 9:56 AM EDT [facility] MCV 92.5 79.0 - 97.0 fL 02/24/2025 9:56 AM EDT [facility] MCH 30.3 26.6 - 33.0 pg 02/24/2025 9:56 AM EDT [facility] MCHC 32.7 31.5 - 35.7 g/dL 02/24/2025 9:56 AM EDT [facility] RDW 13.1 12.3 - 15.4 % 02/24/2025 9:56 AM EDT [facility] RDW-SD 45.0 37.0 - 54.0 fl 02/24/2025 9:56 AM EDT [facility] MPV 9.2 6.0 - 12.0 fL 02/24/2025 9:56 AM EDT [facility] Platelets 219 140 - 450 10*3/mm3 02/24/2025 9:56 AM EDT [facility] Neutrophil % 38.4(L) 42.7 - 76.0 % 02/24/2025 9:56 AM EDT [facility] Lymphocyte % 46.7(H) 19.6 - 45.3 % 02/24/2025 9:56 AM EDT [facility] Monocyte % 10.7 5.0 - 12.0 % 02/24/2025 9:56 AM EDT [facility] Eosinophil % 2.3 0.3 - 6.2 % 02/24/2025 9:56 AM EDT [facility] Basophil % 1.7(H) 0.0 - 1.5 % 02/24/2025 9:56 AM EDT [facility] Immature Grans % 0.2 0.0 - 0.5 % 02/24/2025 9:56 AM EDT [facility] Neutrophils, Absolute 1.86 1.70 - 7.00 10*3/mm3 02/24/2025 9:56 AM EDT [facility] Lymphocytes, Absolute 2.26 0.70 - 3.10 10*3/mm3 02/24/2025 9:56 AM EDT [facility] Monocytes, Absolute 0.52 0.10 - 0.90 10*3/mm3 02/24/2025 9:56 [facility] Eosinophils, Absolute 0.11 0.00 - 0.40 10*3/mm3 02/24/2025 9:56 AM EDT [facility] Basophils, Absolute 0.08 0.00 - 0.20 10*3/mm3 02/24/2025 9:56 AM EDT [facility] Immature Grans, Absolute 0.01 0.00 - 0.05 10*3/mm3 02/24/2025 9:56 AM [facility] Blood Venipuncture / Unknown 02/24/2025 9:54 AM EDT 02/24/2025 9:54 AM EDT us Tash Anaya MD LAB BLOOD ORDERABLES Caitlin l Result [facility]
[address] [place] [address], * Lactate Dehydrogenase (02/24/2025 9:54 AM EDT) LDH 203 135 - 214 U/L 02/24/2025 11:49 AM EDT [facility] Blood Venipuncture / Unknown 02/24/2025 9:54 AM EDT 02/24/2025 9:54 AM EDT Tash Anaya MD LAB BLOOD ORDERABLES Caitlin l Result [facility]
[address] [place] [address], * (ABNORMAL) Comprehensive Metabolic Panel (02/24/2025 9:54 AM EDT) Glucose 75 65 - 99 mg/dL 02/24/2025 11:49 AM EDT [facility] BUN 22.3 8.0 - 23.0 mg/dL 02/24/2025 11:49 AM EDT [facility] Creatinine 0.83 0.57 - 1.00 mg/dL 02/24/2025 11:49 AM EDT [facility] Sodium 140 136 - 145 mmol/L 02/24/2025 11:49 AM EDT [facility] Potassium 4.6 3.5 - 5.2 mmol/L 02/24/2025 11:49 AM EDT [facility] Chloride 105 98 - 107 mmol/L 02/24/2025 11:49 AM EDT [facility] CO2 24.7 22.0 - 29.0 mmol/L 02/24/2025 11:49 AM EDT [facility] Calcium 9.2 8.6 - 10.5 mg/dL 02/24/2025 11:49 AM EDT [facility] Total Protein 7.1 6.0 - 8.5 g/dL 02/24/2025 11:49 AM EDT [facility] Albumin 4.2 3.5 - 5.2 g/dL 02/24/2025 11:49 AM EDT [facility] ALT (SGPT) 14 1 - 33 U/L 02/24/2025 11:49 AM [facility] AST (SGOT) 18 1 - 32 U/L 02/24/2025 11:49 AM EDT [facility] Alkaline Phosphatase 85 39 - 117 U/L 02/24/2025 11:49 AM T [facility] Total Bilirubin 0.4 0.0 - 1.2 mg/dL 02/24/2025 11:49 AM EDT [facility] Globulin 2.9 gm/dL 02/24/2025 11:49 AM T [facility] Comment:Calculated Result A/G Ratio 1.4 g/dL 02/24/2025 11:49 AM [facility] BUN/Creatinine Ratio 26.9(H) 7.0 - 25.0 02/24/2025 11:49 AM T [facility] Anion Gap 10.3 5.0 - 15.0 mmol/L 02/24/2025 11:49 AM [facility] eGFR 75.9 >60.0 mL/min/1.7 3 02/24/2025 11:49 AM [facility] Blood Venipuncture / Unknown 02/24/2025 9:54 AM EDT 02/24/2025 9:54 AM T [facility] - 02/24/2025 11:49 AM EDT [...] MD LAB BLOOD ORDERABLES Caitlin l Result [facility]
[address] [place] [address], * SCANNED - MAMMO (05/09/2022) Anatomical Region [...] Of Support Discussed With: Patient Care Teams Campus Administrator Relationship Specialty Start Date End Date Malena Ramey APRN [address] [facility] [address] [place] [address] PCP - General Family Medicine 07/29/19
== END 2025-05-24 23:59 | disposition home or self-care (01) ==
LOC: RAD 14:13
PROVIDERS: PCP Nurse Practitioner Family; Visit Provider Nurse Practitioner Family
DX: R92.2 Inconclusive mammogram
CPT/HCPCS: 76641; 77061; 77065; G0279